=== PATIENT | male | born 1960 | race Caucasian/White ===

== ENCOUNTER 2017-12-25 02:44 | Emergency (ER) | payer OTHER ==
[~2017-12-25] VITALS: Ht 182.9 cm; Wt 95.2 kg
[~2017-12-25 02:44] MED LIST: AMLO5 PO; ASPI325 PO; AZAT50 PO; CEPH500 PO; CIPR250 PO; CLIN300 PO; CLOT10 SUSW; CLOT1TC TOP; CODACE30 PO; CYCL10 PO; DOCU100 PO; DOXY100 PO; ERYT.5TO LEFTEYE; FURO40 PO; GABA600 PO; HYDACE5 PO; HYDACE5325 PO; HYDCHL25 PO; HYDMOR2 PO; HYDSUL200 PO; IBUP800 PO; INDO25 PO; LEVSOD100 PO; LEVSOD150 PO; LISI5 PO; MESA400ER PO; METCAR500 PO; METTREX2.5 PO; NAPR500 PO; NAPR500ERA PO; NIFE30ER PO; OMEP10ER PO; ONDA4 PO; ONDA8 PO; OXYACE5T PO; OXYACE7.5T PO; OXYC10ER PO; OXYC5 PO; PANT40 PO; POTA10T PO; PRED10 PO; PRED20 PO; PROACE100 PO; Percocet 5-3251 EACH PO; RANI150 PO; RXCODACET PO; RXOXYACE PO; SENN187 PO; SULTRIDS PO; TAMS.4ER PO; TRAM50 PO; VANC250 PO
[2017-12-25] MEDS ORDERED: CEPH500 PO (03:07)
== END 2017-12-25 03:55 | disposition home or self-care (01) ==
LOC: ER 02:44
DX: S61.244A Puncture wound with foreign body of right ring finger without damage to nail, initial encounter (principal); W26.8XXA Contact with other sharp object(s), not elsewhere classified, initial encounter
CPT/HCPCS: 10120; 73140; 99283-25

== ENCOUNTER 2018-06-29 10:40 | Inpatient (IN) | payer OTHER ==
[~2018-06-29] VITALS: Ht 180.3 cm; Wt 96.6 kg
[2018-06-29 11:10] LABS: Calcium, Ionized (POC) 1.23 mmol/L (1.10-1.46); Chloride (POC) 108 mmol/L (98-108); Creatinine (POC) 1.3 mg/dL (0.8-1.3); Glucose (ISTAT POC) 164 mg/dL (70-99); Hemoglobin (POC) 7.8 g/dL (13.5-17.5); Potassium (POC) 3.9 mmol/L (3.5-5.5); Sodium (POC) 140 mmol/L (135-148); Total CO2 (POC) 19 mmol/L (21-32)
[2018-06-29 11:15] LABS: BASOPHILS ABSOLUTE AUTO 0.06 K/mm3 (0.00-0.23); BASOPHILS PERCENT AUTO 0 % (0-2); EOSINOPHILS ABSOLUTE AUTO 0.05 K/mm3 (0.00-0.68); EOSINOPHILS PERCENT AUTO 0 % (0-6); Hematocrit 28.1 % (37.0-53.0); Hemoglobin 9.6 g/dL (13.5-17.5); IMMATURE GRAN ABSOLUTE AUTO 0.24 K/mm3 (0.00-0.10); IMMATURE GRAN PERCENT AUTO 2 % (0-1); LYMPHOCYTES ABSOLUTE AUTO 3.13 K/mm3 (0.84-5.20); LYMPHOCYTES PERCENT AUTO 21 % (21-46); MONOCYTES ABSOLUTE AUTO 0.76 K/mm3 (0.16-1.47); MONOCYTES PERCENT AUTO 5 % (4-13); Mean Corpuscular HGB 32.5 pg (26.0-34.0); Mean Corpuscular HGB Conc 34.2 g/dL (31.5-36.5); Mean Corpuscular Volume 95 fL (80-100); Mean Platelet Volume 10.7 fL (9.1-12.4); NEUTROPHILS ABSOLUTE AUTO 10.56 K/mm3 (1.96-9.15); NEUTROPHILS PERCENT AUTO 72 % (41-73); Platelet Count 217 K/mm3 (150-400); RDW Coefficient Variation 11.8 % (11.7-14.2); RDW Standard Deviation 39.8 fL (35.1-46.3); Red Blood Cell Count 2.95 M/mm3 (4.30-5.90)
[2018-06-29 11:35] LABS: Alanine Aminotransfer (ALT/SGP 41 U/L (12-78); Albumin, Blood 2.7 g/dL (3.4-5.0); Alk Phos 69 U/L (50-136); Anion Gap 11 mmol/L (6-16); Aspartate Aminotrans (AST/SGOT 26 U/L (12-37); Bilirubin, Total 0.4 mg/dL (0.1-1.0); Blood Urea Nitrogen 69 mg/dL (8-24); Bun/Creatinine Ratio 53.1 (12.0-20.0); CO2, Blood 20 mmol/L (21-32); Calcium, Blood 8.1 mg/dL (8.5-10.1); Chloride, Blood 111 mmol/L (98-108); Globulin, Blood 2.6 g/dL (2.2-4.0); Glomerular Filtration Rate >60 (60-); Glucose, Blood 165 mg/dL (70-99); Sodium, Blood 142 mmol/L (136-145); Total Protein, Blood 5.3 g/dL (6.4-8.2)
[2018-06-29 12:10] LABS: International Normalized Ratio 1.19; Prothrombin Time Results 12.1 Sec (9.7-11.5)
[2018-06-29 12:54] LABS: Hematocrit 28.5 % (37.0-53.0); Hemoglobin 9.6 g/dL (13.5-17.5)
[2018-06-29 17:01] LABS: Influenza A Negative (NEGATIVE); Influenza B Negative (NEGATIVE)
--- NOTE | 2018-06-29 17:47 | NUR ---
PT ADMITTED TO ICU AT 1658 FOR GI BLEED. 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 PT PALE AND DIAPHORETIC, GOWN MOIST. PT WITH OLD BLACK STOOL TO LEGS AND BUTTOCKS; CLEANED. VSS. LOW GRADE TEMP. PT C/O LOWER ABD CRAMPING, AND TENDERNESS OVER EPIGASTRIUM. C/O NAUSEA/MILD. PT C/O ORAL PAIN, STATING HE IS SCHEDULED FOR DENTURES, THEN REQUEST VICODIN. WILL PASS ON TO MD. MOTTLING NOTED TO HIPS BILATERALLY; [employer] SALES REPRESENTATIVE STATES THAT THE MOTTLING IS MUCH IMPROVED. DR CALLOWAY IN TO SEE PT. OKAY TO HAVE CLEAR LIQUIDS(NO REDS) UP UNTIL MIDNIGHT WITH EGD PLANNED FOR TOMORROW AM.
[2018-06-29 18:21] LABS: Hematocrit 24.6 % (37.0-53.0); Hemoglobin 8.4 g/dL (13.5-17.5)
--- NOTE | 2018-06-29 19:15 | NUR ---
ASSUMED CARE OF PT PT ALERT AND ORIENTED ABLE TO APPROPRIATELY ANSWER QUESTIONS WHEN ASKED. PT DENIES PAIN AT THIS TIME. PROTONIX RUNNING AT 10 MLS/HR, SANDOSTATIN @ 25 ML/HR, BANANA BAG @ 200 MLS/HR, AND NS @ 100 MLS/HR. PT ABLE TO HELP COMPLETE ADMISSION HX BUT PER DAYSHIFT NURSE PT APPEARS TO BE A POOR HISTORIAN. VSS. SEE FULL SHIFT ASSESSMENT.
[2018-06-29 19:55] LABS: Source, Urine Catheter
[2018-06-29 20:02] LABS: Appearance, Urine Clear (Clear); Bilirubin, Urine Neg (Neg); Blood, Urine Neg (Neg); Color, Urine Yellow (P-Yellow); Glucose Qualitative, Urine Neg (Neg); Ketones, Urine Neg (Neg); Leukocyte Esterase, Urine Neg (Neg); Nitrite, Urine Neg (Neg); Protein, Urine Neg (Neg); Specific Gravity, Urine 1.015 (1.003-1.022); Urobilinogen, Urine NORM (Normal)
[2018-06-29 20:19] LABS: U Amphetamine Screen DETECTED; U Barbituate Screen Not Detected; U Benzodiazapine Screen Not Detected; U Buprenorphine Screen Not Detected; U Cannabinoids Screen Not Detected; U Cocaine Screen Not Detected; U Methadone Screen Not Detected; U Methamphetamine Screen DETECTED; U Opiates Screen Not Detected; U Oxycodone Screen Not Detected; U Phencyclidine Screen Not Detected; U Propoxyphene Screen Not Detected
[2018-06-30 01:21] LABS: Hematocrit 23.5 % (37.0-53.0); Hemoglobin 8.1 g/dL (13.5-17.5)
--- NOTE | 2018-06-30 04:00 | NUR ---
PT COMPLAINING OF 10/10 HIP PAIN. PT STATES THAT THIS IS CHRONIC PAIN USUALLY RELIEVED AT HOME WITH ALEVE. NURSE CLIFFORD REPOSITIONED AND CALL PLACED TO DR RIZZO, AWAITING CALL BACK.
--- NOTE | 2018-06-30 04:07 | NUR ---
SPOKE WITH DR RIZZO. FENTANYL 25-50 MCG Q4 PRN ORDERED
--- NOTE | 2018-06-30 06:03 | NUR ---
SHIFT SUMMARY NO ACUTE CHANGES TO PT'S CONDITION OVERNIGHT. PT DENIED PAIN UNTIL 0330 AND STATES THAT HIS PAIN IS 10/10 IN HIS HIPS BILATERALLY. PT STATES THIS IS A CHRONIC PAIN THAT HE USUALLY TREATS WITH IBUPROFEN. PT HAS DENIES EPIGASTRIC PAIN AND HAS HAD NO FURTHER BOWEL MOVEMENTS WITH OR WITHOUT BLOOD. PT HAS HAD NO NAUSEA/VOMITING THROUGHOUT SHIFT. PT'S SIGNIFICANT OTHER CONTINUES TO BE AT BEDSIDE. PT SCHEDULED FOR SCOPE THIS AM. WILL REPORT TO DAYSHIFT NURSE.
[2018-06-30 06:37] LABS: Hematocrit 21.9 % (37.0-53.0); Hemoglobin 7.6 g/dL (13.5-17.5)
[2018-06-30 06:38] LABS: BASOPHILS ABSOLUTE AUTO 0.02 K/mm3 (0.00-0.23); BASOPHILS PERCENT AUTO 0 % (0-2); EOSINOPHILS ABSOLUTE AUTO 0.13 K/mm3 (0.00-0.68); EOSINOPHILS PERCENT AUTO 1 % (0-6); Hematocrit 21.8 % (37.0-53.0); Hemoglobin 7.5 g/dL (13.5-17.5); IMMATURE GRAN ABSOLUTE AUTO 0.04 K/mm3 (0.00-0.10); IMMATURE GRAN PERCENT AUTO 0 % (0-1); LYMPHOCYTES ABSOLUTE AUTO 1.59 K/mm3 (0.84-5.20); LYMPHOCYTES PERCENT AUTO 15 % (21-46); MONOCYTES ABSOLUTE AUTO 0.47 K/mm3 (0.16-1.47); MONOCYTES PERCENT AUTO 5 % (4-13); Mean Corpuscular HGB 31.9 pg (26.0-34.0); Mean Corpuscular HGB Conc 34.4 g/dL (31.5-36.5); Mean Corpuscular Volume 93 fL (80-100); Mean Platelet Volume 10.4 fL (9.1-12.4); NEUTROPHILS ABSOLUTE AUTO 8.05 K/mm3 (1.96-9.15); NEUTROPHILS PERCENT AUTO 78 % (41-73); Platelet Count 165 K/mm3 (150-400); RDW Coefficient Variation 12.1 % (11.7-14.2); RDW Standard Deviation 40.1 fL (35.1-46.3); Red Blood Cell Count 2.35 M/mm3 (4.30-5.90)
[2018-06-30 07:11] LABS: Alanine Aminotransfer (ALT/SGP 36 U/L (12-78); Albumin, Blood 2.6 g/dL (3.4-5.0); Albumin/Globulin Ratio 1.1 (0.8-1.8); Alk Phos 67 U/L (50-136); Anion Gap 5 mmol/L (6-16); Aspartate Aminotrans (AST/SGOT 27 U/L (12-37); Bilirubin, Total 0.7 mg/dL (0.1-1.0); Blood Urea Nitrogen 36 mg/dL (8-24); Bun/Creatinine Ratio 31.9 (12.0-20.0); CO2, Blood 24 mmol/L (21-32); Calcium, Blood 7.9 mg/dL (8.5-10.1); Chloride, Blood 114 mmol/L (98-108); Creatinine, Blood 1.13 mg/dL (0.60-1.20); Globulin, Blood 2.3 g/dL (2.2-4.0); Glomerular Filtration Rate >60 (60-); Glucose, Blood 115 mg/dL (70-99); Potassium, Blood 4.4 mmol/L (3.5-5.5); Sodium, Blood 143 mmol/L (136-145); Total Protein, Blood 4.9 g/dL (6.4-8.2)
--- NOTE | 2018-06-30 08:07 | NUR ---
PT SLEEPING THIS AM, AROUSES TO TOUCH. PT MOANS AND GRIMACES IN SLEEP, C/O PAIN 10/10 TO PRIMARILY LEFT HIP. PT SLEPT THROUGH POWERGLIDE INSERTION. VSS. PROTONIX, SANDOSTATIN AND NS INFUSING. AFEBRILE THIS AM, POOR PERFUSION TO FEET, COOL WITH CAP REFIL>3SEC. MURMUR AT [facility] AND S2. NO ACTIVE GI BLEED NOTED. NO STOOLS.
--- NOTE | 2018-06-30 10:12 | NUR ---
06/30/18 1012 Carlito Rodriguez 3-LEAD EKG REVIEWED WITH PHYSICIAN PRIOR TO START OF PROCEDURE. History, Chart, Medications and Allergies reviewed before start of procedure.PATIENT CONFIRMS NPO STATUS AND AGREES WITH SCHEDULED PROCEDURE.History, Chart, Medications and Allergies reviewed before start of procedure.MONITOR INTACT WITH CONTINUOUS PULSE OXIMETRY AND INTERMITTENT BP.O2 VIA N/C INTACT THROUGHOUT SEDATION/PROCEDURE. Bite Block Placed
--- NOTE | 2018-06-30 10:43 | NUR ---
EGD COMPLETE. SEDATION PROVIED BY DR LAMB, SEE RECORD. STOMACH ULCER TREATED W EPI AND CAUTERY. NOT ACTIVELY BLEEDING. VSS. PT SLEEPING SOUNDLY, AROUSES TO TOUCH.
--- NOTE | 2018-06-30 11:30 | NUR ---
PT DR CALLOWAY PT MAY START CLEAR LIQUIDS TODAY, WILL STAY ON BOTH SANDOSTATIN AND PROTONIX GTT, AND MAY HAVE STATUS CHANGE IF OK W HOSPITALIST. PT CONTINUES TO SLEEP, VSS
[2018-06-30 12:33] LABS: Hematocrit 20.6 % (37.0-53.0)
--- NOTE | 2018-06-30 15:46 | NUR ---
DR CALLOWAY GIVEN H&H RESULTS, ONE UNIT PRBC'S ORDERED. DR MACIAS NOTIFIED, PT NOW PCU STATUS
--- NOTE | 2018-06-30 16:58 | NUR ---
DR MACIAS NOTIFIED OF S2 DYSTOLIC MURMUR. ECHO ORDERED
[2018-06-30 18:52] LABS: Hematocrit 22.5 % (37.0-53.0); Hemoglobin 7.7 g/dL (13.5-17.5)
--- NOTE | 2018-06-30 19:40 | NUR ---
PT SLEPT MOST OF THIS SHIFT. PT C/O PAIN TO HIS HIP ONCE IN THE AM (FALLING BACK TO A SOMULENT SLEEP), THEN ONCE IN THE AFTERNOON; FENT IV GIVEN. NO SYMPTOMS OF ACTIVE BLEEDING TODAY, NO ABD DISCOMFORT, NO STOOLS, VSS T/O SHIFT. PT STARTED TO BECOME ALERT AROUND 1600, TOLERATING CLEAR LIQUIDS VERY WELL, USING URINAL, AND USING CALL LIGHT APPROPRIATELY.
--- NOTE | 2018-06-30 20:38 | NUR ---
Sac of Care: Patient sleeping, easily roused via verbal stimuli. Denies dyspnea/SOB, O2-98-100% on RA. C/o pain to lt hip (states chronic) when woken for cares, otherwise quickly falls to sleep when not stimulated and appears to be calm/comfortable. Therefore, hesitant to give prn fentanyl at this time, will continue to monitor pain and give prn fentanyl if more awake, or request order for prn tylenol. No s/s of active bleed at this time, denies N/V, no stool noted, VSS. Protonix gtt, Sandostatin gtt, and NS at 100ml/hr infusing without difficulty. IV to lt EJ patent and intact, Power-glide to BRANDI patent and intact. IV to rt thumb D/C'd at start of shift, r/t not being patent and swelling to rt hand, no redness noted. Will continue to monitor for pain, comfort, safety.
[2018-06-30 23:06] LABS: Hematocrit 22.6 % (37.0-53.0); Hemoglobin 7.7 g/dL (13.5-17.5)
[2018-07-01 04:24] LABS: BASOPHILS ABSOLUTE AUTO 0.02 K/mm3 (0.00-0.23); BASOPHILS PERCENT AUTO 0 % (0-2); EOSINOPHILS ABSOLUTE AUTO 0.19 K/mm3 (0.00-0.68); EOSINOPHILS PERCENT AUTO 3 % (0-6); Hematocrit 23.7 % (37.0-53.0); Hematocrit 24.1 % (37.0-53.0); Hemoglobin 7.9 g/dL (13.5-17.5); Hemoglobin 8.1 g/dL (13.5-17.5); IMMATURE GRAN ABSOLUTE AUTO 0.04 K/mm3 (0.00-0.10); IMMATURE GRAN PERCENT AUTO 1 % (0-1); LYMPHOCYTES PERCENT AUTO 26 % (21-46); MONOCYTES PERCENT AUTO 8 % (4-13); Mean Corpuscular HGB 30.7 pg (26.0-34.0); Mean Corpuscular HGB Conc 33.3 g/dL (31.5-36.5); Mean Corpuscular Volume 92 fL (80-100); Mean Platelet Volume 10.4 fL (9.1-12.4); NEUTROPHILS ABSOLUTE AUTO 4.04 K/mm3 (1.96-9.15); NEUTROPHILS PERCENT AUTO 62 % (41-73); Platelet Count 156 K/mm3 (150-400); RDW Coefficient Variation 14.7 % (11.7-14.2); RDW Standard Deviation 48.8 fL (35.1-46.3); Red Blood Cell Count 2.57 M/mm3 (4.30-5.90); White Blood Cell Count 6.49 K/mm3 (4.00-11.30)
[2018-07-01 04:46] LABS: Anion Gap 5 mmol/L (6-16); Blood Urea Nitrogen 21 mg/dL (8-24); Bun/Creatinine Ratio 17.2 (12.0-20.0); CO2, Blood 27 mmol/L (21-32); Calcium, Blood 7.9 mg/dL (8.5-10.1); Chloride, Blood 112 mmol/L (98-108); Creatinine, Blood 1.22 mg/dL (0.60-1.20); Glomerular Filtration Rate >60 (60-); Glucose, Blood 100 mg/dL (70-99); Sodium, Blood 144 mmol/L (136-145)
--- NOTE | 2018-07-01 05:45 | NUR ---
Shift Summary: Patient slept well throughout shift, easily roused via verbal stimuli. Denies dyspnea/SOB, VSS. C/o lt hip pain 02/01 effectively managed with prn fentanyl 25mcg, x1 dose. No s/s of active bleeding, no N/V, or stool noted. Tolerating PO clear liquids without difficulty. Lt EJ and BRANDI Power-glide remain patent and intact. Voiding using urinal in bed without difficulty. Adjust own position in bed, makes needs known. Sleeping at this time. Will continue to monitor until report to day shift RN.
--- NOTE | 2018-07-01 07:56 | NUR ---
PT ASLEEP, AWAKENS EASILY TO NAME. NULATO. C/O CHRONIC HIP PAIN, REPOSITIONS SELF IN BED. NO N/V. STATES HUNGRY. NSR, BP STABLE. COLOR PALE, SKIN MOIST. IV NS AT 100 CC/HR, PROTONIX GTT AT 8MG/HR, SANDOSTATIN GTT AT 50 MCG/HR. LEFT EJ INTACT, LEFT UPPER ARM POWER GLIDE DI. ABDOMEN SOFT. VOIDING CLEAR YELLOW URINE. SCDS ON.
--- NOTE | 2018-07-01 09:19 | NUR ---
BEDSIDE ECHO DONE. AWAKENS EASILY, BACK TO SLEEP WITHOUT PROBLEMS. TOOK CLEAR LIQUIDS. NO S/S BLEEDING
[2018-07-01 10:11] LABS: Hematocrit 21.8 % (37.0-53.0); Hemoglobin 7.4 g/dL (13.5-17.5)
--- NOTE | 2018-07-01 10:25 | NUR ---
Echocardiogram completed.
--- NOTE | 2018-07-01 10:43 | NUR ---
DR. MACIAS HERE-UPDATED. ORDERS FOR MED STATUS, NO TELEMETRY. ORDERS TO D/C SANDOSTATIN. PT C.O HIP PAIN, RX GIVEN PER REQUEST. AM CARE DONE, WAS ABLE TO STAND AT BEDSIDE FOR LINEN CHANGE
--- NOTE | 2018-07-01 13:30 | NUR ---
DR. CALLOWAY HERE-UPDATED. AWARE OF LABS. CONTINUE TO MONITOR, MEDICAL STATUS. PT DENIES COMPLAINTS EXCEPT C/O CHRONIC HIP PAIN, SLEEPING WHEN UNDISTURBED.
--- NOTE | 2018-07-01 14:54 | NUR ---
REPORT TO PORFIRIO NOBLE ON MEDICAL. PT TRANSFERRED IN WHEELCHAIR WITHOUT PROBLEMS. VSS. NO S/S BLEEDING. ATE PUDDING AND HALF SANDWICH. NO NAUSEA. VOIDING. CONTINUE PROTONIX AND BANANA BAG.
[2018-07-01 16:35] LABS: Hematocrit 22.1 % (37.0-53.0); Hemoglobin 7.4 g/dL (13.5-17.5)
--- NOTE | 2018-07-01 17:29 | NUR ---
PATIENT ALERT AND ORIENTED. BLD DRAW THRU POWERGLIDE WITH CAP CHANGED. H&H NO CHANGES WILL CONTINUE TO MONITOR. NO N/V. NO BLD IN STOOL. UNLABORED RESPIRATIONS. USES URINAL IN BED WITHOUT DIFFICULTY. TOLERATED REG DIET PRIOR TO TRANSFER TO THIS FLOOR. ABLE TO ADJUST BED ON HIS OWN. MEDICATED FOR HIP/BACK PAIN X 1 WITH GOOD RESULTS. BED IN LOW POSITION. CALL LIGHT WITHIN REACH. WILL CONTINUE TO MONITOR.
[2018-07-01 23:22] LABS: Hematocrit 20.9 % (37.0-53.0); Hemoglobin 7.1 g/dL (13.5-17.5)
--- NOTE | 2018-07-02 07:26 | NUR ---
SHIFT SUMMARY PT A/O. CHELE HAS NOT GOT OOB. USING URINAL IN BED. C/O PAIN IN BACK/HIPS AND MEDICATED PER EMAR X2. NO STOOL SAMPLE. HE WAS SLEEPY AND SLEPT T/O NIGHT. CALL LIGHT IN REACH.
--- NOTE | 2018-07-02 08:01 | NUR ---
UNABLE TO DRAW FROM EITHER IV SITE
--- NOTE | 2018-07-02 09:15 | NUR ---
per dr. subha rawls hold bld transfusion and redraw h&h at noon. keep clear liquids as may do scope again.
[2018-07-02 09:17] LABS: Hematocrit 23.2 % (37.0-53.0); Hemoglobin 7.9 g/dL (13.5-17.5)
[2018-07-02 12:08] LABS: Hematocrit 22.8 % (37.0-53.0); Hemoglobin 7.8 g/dL (13.5-17.5)
--- NOTE | 2018-07-02 14:40 | NUR ---
PER DR. CALLOWAY NO TRANSFUSION AT THIS TIME. REG DINNER. PROTONIX TO P.O. BID.
--- NOTE | 2018-07-02 19:10 | NUR ---
ALERT AND ORIENTED. SHOWER TODAY. IF H&H STABLE POSSIBLE D'C TOMORROW. IV'S PATENT. BUE SWOLLEN. TOLERATING FOOD OK. UNLABORED RESPIRATIONS. NO B.M TODAY. NO N/V. BED IN LOW POSITION. CALL LIGHT WITHIN REACH. WILL CONTINUE TO MONITOR.
--- NOTE | 2018-07-03 00:12 | NUR ---
0012: PT AND SPOUSE REPORT PT HAS MEDIUM BLACK TARRY STOOL WITH BRP. PT REPORTS MILD DIZZINESS WHILE UP IN ROOM THAT RESOLVES WHEN REPOSITIONS SELF BACK IN BED. VSS, DENIES SOB. PT AND SPOUSE EDUCATED ABOUT BLOODY STOOLS IN R/T GI BLEED AND FURTHER S/S TO WATCH FOR. PT VERBALIZES UNDERSTANDING OF WHEN TO NOTIFY RN SHOULD SYMPTOMS OCCUR AND SPOUSE LEAVES FACILITY FOR NOC.
--- NOTE | 2018-07-03 05:09 | NUR ---
SUMMARY: ADMIT DAY 5 GI BLEED, ANEMIA ON HOSPITALIST SERVICE WITH DR. Caron CALLOWAY CONSULTING. VSS, AFEBRILE, PT TOLERATING REGULAR DIET AND HAD MEDIUM BLACK TARLIKE BM THIS SHIFT. DENIES REFLUX, HEARTBURN, N/V, SOB, CHEST PAIN. PT HAD SHORT EPISDOE OF DIZZINESS AFTER BRP AND TARRY BM THAT RESOLVED WITHIN MINUTES; VSS DURING THIS TIME.
[2018-07-03 06:08] LABS: Hematocrit 23.7 % (37.0-53.0); Hemoglobin 7.9 g/dL (13.5-17.5)
[2018-07-03] MEDS ORDERED: Protonix40 MG PO (11:13)
--- NOTE | 2018-07-03 16:09 | NUR ---
PT DISCHARGED THE PT VERBALIZED UNDERSTANDING OF THE DC INSTRUCTIONS, PERSCRIPTION WAS CALLED TO [facility] PER THE PTS REQUEST, PT TOOK A SHOWER BEFORE DC AND TOLERATED IT WELL, THE PT WAS TRANSFERED VIA WHEELCHAIR ACCOMPANIED BY ESCORT AND FRIEND, PT APPEARED TO BE BREATHING EASILY ON RA
[2018-07-10 21:07] LABS: HCV LOG10 6.751 (.); HEPATITIS C GENOTYPE 1a (.); HEPATITIS C GENOTYPE See Final Results (.); HEPATITIS C QUANTITATION 5640000 IU/mL (.)
== END 2018-07-03 14:11 | disposition home or self-care (01) | DRG 871 ==
LOC: ER 10:40 → ERHOLD 10:41 → ICUE 10:41 → MEDS 07-01 14:30 → ENPENDDIS 07-03 11:04 → MEDS 07-03 14:11
PROVIDERS: Emergency Medicine; Internal Medicine; Internal Medicine Gastroenterology; ADMIT Internal Medicine
PROC: 30233N1 Transfusion of Nonautologous Red Blood Cells into Peripheral Vein, Percutaneous Approach (ICD-10-PCS; 2018-06-30)
PROC: 0W3P8ZZ Control Bleeding in Gastrointestinal Tract, Via Natural or Artificial Opening Endoscopic (ICD-10-PCS; principal; 2018-06-30 09:45)
PROC: 3E0G8GC Introduction of Other Therapeutic Substance into Upper GI, Via Natural or Artificial Opening Endoscopic (ICD-10-PCS; 2018-06-30 09:45)
DX: A41.9 Sepsis, unspecified organism (principal); K22.11 Ulcer of esophagus with bleeding; D62 Acute posthemorrhagic anemia; K50.90 Crohn's disease, unspecified, without complications; N17.9 Acute kidney failure, unspecified; K74.60 Unspecified cirrhosis of liver; B19.20 Unspecified viral hepatitis C without hepatic coma; F19.10 Other psychoactive substance abuse, uncomplicated; F17.210 Nicotine dependence, cigarettes, uncomplicated; I12.9 Hypertensive chronic kidney disease with stage 1 through stage 4 chronic kidney disease, or unspecified chronic kidney disease; N18.3 Chronic kidney disease, stage 3 (moderate); T39.395A Adverse effect of other nonsteroidal anti-inflammatory drugs [NSAID], initial encounter; F10.20 Alcohol dependence, uncomplicated
CPT/HCPCS: 36415; 36430; 71046; 74150; 80047; 80048; 80053; 81003; 82140; 83605; 84145; 85014; 85018; 85025; 85610; 86140; 86850; 86900; 86901; 86920; 86923; 87040; 87522; 87804; 90686; 93005; 93010; 93306; 96365; 96366; 96367; 96368; 96375; 96376; 99285-25; C1751; C9113; G0008; G0378; J2060; J2405; J2765; J3010; J3411; J3475; J7030; J7042; J7050; J7120; P9016

== ENCOUNTER 2018-07-10 05:38 | Emergency (ER) | payer OTHER ==
[~2018-07-10 05:38] MED LIST changes: +Protonix40 MG PO
== END 2018-07-10 06:20 | disposition left against medical advice (07) ==
LOC: ER 05:38
DX: Z53.21 Procedure and treatment not carried out due to patient leaving prior to being seen by health care provider (principal)

== ENCOUNTER 2018-11-10 08:57 | Emergency (ER) | payer OTHER ==
[~2018-11-10] VITALS: Ht 182.9 cm; Wt 99.8 kg
[2018-11-10] MEDS ORDERED: GABA300 (09:07)
[2018-11-10] MEDS ORDERED: LISI5 (09:07)
[2018-11-10] MEDS ORDERED: OMEPRAZOLE DR 40 MG (09:08)
== END 2018-11-10 10:53 | disposition home or self-care (01) ==
LOC: ER 08:57
DX: H61.21 Impacted cerumen, right ear (principal); F17.200 Nicotine dependence, unspecified, uncomplicated; Z79.899 Other long term (current) drug therapy
CPT/HCPCS: 99282

== ENCOUNTER 2020-04-22 18:19 | Emergency (ER) | payer OTHER ==
[~2020-04-22] VITALS: Ht 182.9 cm; Wt 95.2 kg
[~2020-04-22 18:19] MED LIST changes: +GABA300; +LISI5; +OMEPRAZOLE DR 40 MG
[2020-04-22 19:57] LABS: BASOPHILS ABSOLUTE AUTO 0.04 K/mm3 (0.00-0.23); BASOPHILS PERCENT AUTO 0 % (0-2); EOSINOPHILS ABSOLUTE AUTO 0.11 K/mm3 (0.00-0.68); EOSINOPHILS PERCENT AUTO 1 % (0-6); Hematocrit 38.3 % (37.0-53.0); Hemoglobin 12.3 g/dL (13.5-17.5); IMMATURE GRAN ABSOLUTE AUTO 0.04 K/mm3 (0.00-0.10); IMMATURE GRAN PERCENT AUTO 0 % (0-1); LYMPHOCYTES ABSOLUTE AUTO 2.67 K/mm3 (0.84-5.20); LYMPHOCYTES PERCENT AUTO 20 % (21-46); MONOCYTES ABSOLUTE AUTO 1.39 K/mm3 (0.16-1.47); MONOCYTES PERCENT AUTO 11 % (4-13); Mean Corpuscular HGB 28.9 pg (26.0-34.0); Mean Corpuscular HGB Conc 32.1 g/dL (31.5-36.5); Mean Corpuscular Volume 90 fL (80-100); Mean Platelet Volume 9.7 fL (9.1-12.4); NEUTROPHILS ABSOLUTE AUTO 9.01 K/mm3 (1.96-9.15); NEUTROPHILS PERCENT AUTO 68 % (41-73); Platelet Count 288 K/mm3 (150-400); RDW Coefficient Variation 13.1 % (11.7-14.2); RDW Standard Deviation 42.9 fL (35.1-46.3); Red Blood Cell Count 4.25 M/mm3 (4.30-5.90); White Blood Cell Count 13.26 K/mm3 (4.00-11.30)
[2020-04-22 20:15] LABS: Albumin, Blood 3.6 g/dL (3.4-5.0); Bilirubin, Total 0.5 mg/dL (0.1-1.0); Bun/Creatinine Ratio 13.1 (12.0-20.0); Calcium, Blood 10.6 mg/dL (8.5-10.1); Creatinine, Blood 3.75 mg/dL (0.60-1.20); Globulin, Blood 3.7 g/dL (2.2-4.0); Potassium, Blood 4.1 mmol/L (3.5-5.5); Total Protein, Blood 7.3 g/dL (6.4-8.2)
[2020-04-22] MEDS ORDERED: PRINIVIL10 MG PO (22:57)
[2020-04-22] MEDS ORDERED: Omeprazole20 M1 PO (22:57)
[2020-04-22] MEDS ORDERED: NEURONTIN300 MG PO (22:57)
[2020-04-23 00:15] LABS: International Normalized Ratio 1.03
[2020-04-23 00:50] LABS: Calcium, Ionized (POC) 1.29 mmol/L (1.10-1.46); Chloride (POC) 103 mmol/L (98-108); Creatinine (POC) 3.8 mg/dL (0.8-1.3); Glucose (ISTAT POC) 105 mg/dL (70-99); Hemoglobin (POC) 11.2 g/dL (13.5-17.5); Potassium (POC) 3.9 mmol/L (3.5-5.5); Sodium (POC) 138 mmol/L (135-148); Total CO2 (POC) 23 mmol/L (21-32)
== END 2020-04-23 01:25 | disposition other institution (70) ==
LOC: ER 18:19
PROVIDERS: Emergency Medicine
DX: K92.2 Gastrointestinal hemorrhage, unspecified (principal); N18.9 Chronic kidney disease, unspecified; N17.9 Acute kidney failure, unspecified; F17.200 Nicotine dependence, unspecified, uncomplicated; Z79.899 Other long term (current) drug therapy
CPT/HCPCS: 36415; 80047; 80053; 83690; 85014; 85025; 85610; 96374; 99284-25; C9113; J7030

== ENCOUNTER 2020-09-17 10:13 | Emergency (ER) | payer OTHER ==
[~2020-09-17] VITALS: Ht 182.9 cm; Wt 104.3 kg
[~2020-09-17 10:13] MED LIST changes: +NEURONTIN300 MG PO; +Omeprazole20 M1 PO; +PRINIVIL10 MG PO
[2020-09-17 10:55] LABS: BASOPHILS ABSOLUTE AUTO 0.04 K/mm3 (0.00-0.23); BASOPHILS PERCENT AUTO 1 % (0-2); EOSINOPHILS ABSOLUTE AUTO 0.14 K/mm3 (0.00-0.68); EOSINOPHILS PERCENT AUTO 2 % (0-6); Hematocrit 40.3 % (37.0-53.0); IMMATURE GRAN ABSOLUTE AUTO 0.02 K/mm3 (0.00-0.10); IMMATURE GRAN PERCENT AUTO 0 % (0-1); LYMPHOCYTES ABSOLUTE AUTO 1.43 K/mm3 (0.84-5.20); LYMPHOCYTES PERCENT AUTO 16 % (21-46); MONOCYTES ABSOLUTE AUTO 0.77 K/mm3 (0.16-1.47); MONOCYTES PERCENT AUTO 9 % (4-13); Mean Corpuscular HGB 26.3 pg (26.0-34.0); Mean Corpuscular HGB Conc 32.3 g/dL (31.5-36.5); Mean Corpuscular Volume 82 fL (80-100); Mean Platelet Volume 9.6 fL (9.1-12.4); NEUTROPHILS ABSOLUTE AUTO 6.37 K/mm3 (1.96-9.15); NEUTROPHILS PERCENT AUTO 73 % (41-73); Platelet Count 256 K/mm3 (150-400); RDW Coefficient Variation 15.4 % (11.7-14.2); RDW Standard Deviation 45.2 fL (35.1-46.3); Red Blood Cell Count 4.94 M/mm3 (4.30-5.90); White Blood Cell Count 8.77 K/mm3 (4.00-11.30)
[2020-09-17] MEDS ORDERED: PANT40 PO (11:04)
[2020-09-17 11:15] LABS: Alanine Aminotransfer (ALT/SGP 34 U/L (12-78); Albumin, Blood 3.5 g/dL (3.4-5.0); Albumin/Globulin Ratio 0.8 (0.8-1.8); Alk Phos 209 U/L (50-136); Anion Gap 4 mmol/L (6-16); Aspartate Aminotrans (AST/SGOT 20 U/L (12-37); Bilirubin, Total 0.4 mg/dL (0.1-1.0); Blood Urea Nitrogen 18 mg/dL (8-24); Bun/Creatinine Ratio 12.2 (12.0-20.0); CO2, Blood 29 mmol/L (21-32); Calcium, Blood 10.3 mg/dL (8.5-10.1); Chloride, Blood 105 mmol/L (98-108); Creatinine, Blood 1.47 mg/dL (0.60-1.20); Globulin, Blood 4.4 g/dL (2.2-4.0); Glomerular Filtration Rate 52 (60-); Glucose, Blood 91 mg/dL (70-99); Potassium, Blood 4.2 mmol/L (3.5-5.5); Sodium, Blood 138 mmol/L (136-145); Total Protein, Blood 7.9 g/dL (6.4-8.2); Troponin I <0.015 ng/mL (0.000-0.040)
[2020-09-17] MEDS ORDERED: MIRALAX17 G6 PO (12:16)
[2020-09-17] MEDS ORDERED: ONDA4ODT MM (12:16)
== END 2020-09-17 12:30 | disposition home or self-care (01) ==
LOC: ER 10:13
PROVIDERS: Emergency Medicine
DX: K59.00 Constipation, unspecified (principal); R06.00 Dyspnea, unspecified; Z79.899 Other long term (current) drug therapy
CPT/HCPCS: 36415; 71045; 74018; 80053; 84484; 85025; 93005; 93010; 96374; 99285-25; A9270; J2405

== ENCOUNTER 2020-09-21 09:17 | Emergency (ER) | payer OTHER ==
[~2020-09-21] VITALS: Ht 182.9 cm; Wt 102.1 kg
[~2020-09-21 09:17] MED LIST changes: +MIRALAX17 G6 PO; +ONDA4ODT MM
[2020-09-21 10:18] LABS: BASOPHILS ABSOLUTE AUTO 0.03 K/mm3 (0.00-0.23); BASOPHILS PERCENT AUTO 0 % (0-2); EOSINOPHILS ABSOLUTE AUTO 0.18 K/mm3 (0.00-0.68); EOSINOPHILS PERCENT AUTO 2 % (0-6); Hematocrit 38.2 % (37.0-53.0); Hemoglobin 12.5 g/dL (13.5-17.5); IMMATURE GRAN ABSOLUTE AUTO 0.03 K/mm3 (0.00-0.10); IMMATURE GRAN PERCENT AUTO 0 % (0-1); LYMPHOCYTES ABSOLUTE AUTO 1.39 K/mm3 (0.84-5.20); LYMPHOCYTES PERCENT AUTO 14 % (21-46); MONOCYTES ABSOLUTE AUTO 0.65 K/mm3 (0.16-1.47); MONOCYTES PERCENT AUTO 7 % (4-13); Mean Corpuscular HGB 26.6 pg (26.0-34.0); Mean Corpuscular HGB Conc 32.7 g/dL (31.5-36.5); Mean Corpuscular Volume 81 fL (80-100); Mean Platelet Volume 9.5 fL (9.1-12.4); NEUTROPHILS ABSOLUTE AUTO 7.38 K/mm3 (1.96-9.15); NEUTROPHILS PERCENT AUTO 76 % (41-73); Platelet Count 262 K/mm3 (150-400); RDW Coefficient Variation 15.1 % (11.7-14.2); RDW Standard Deviation 44.6 fL (35.1-46.3); White Blood Cell Count 9.66 K/mm3 (4.00-11.30)
[2020-09-21 10:37] LABS: Albumin, Blood 3.1 g/dL (3.4-5.0); Albumin/Globulin Ratio 0.7 (0.8-1.8); Bilirubin, Total 0.5 mg/dL (0.1-1.0); Bun/Creatinine Ratio 11.1 (12.0-20.0); Calcium, Blood 9.9 mg/dL (8.5-10.1); Creatinine, Blood 1.98 mg/dL (0.60-1.20); Globulin, Blood 4.2 g/dL (2.2-4.0); Potassium, Blood 4.3 mmol/L (3.5-5.5); Total Protein, Blood 7.3 g/dL (6.4-8.2)
[2020-09-21] MEDS ORDERED: CIPR500 PO (11:29)
== END 2020-09-21 14:57 | disposition home or self-care (01) ==
LOC: ER 09:17
PROVIDERS: Emergency Medicine
DX: K52.9 Noninfective gastroenteritis and colitis, unspecified (principal); E86.0 Dehydration; N28.9 Disorder of kidney and ureter, unspecified; Z79.899 Other long term (current) drug therapy
CPT/HCPCS: 36415; 74177; 80053; 83690; 85025; 96360; 96361; 99284-25; J7030; Q9967

== ENCOUNTER 2021-01-04 23:29 | Emergency (ER) | payer OTHER ==
[~2021-01-04] VITALS: Ht 182.9 cm; Wt 102.1 kg
[~2021-01-04 23:29] MED LIST changes: +CIPR500 PO
== END 2021-01-05 00:50 | disposition home or self-care (01) ==
LOC: ER 23:29
DX: S16.1XXA Strain of muscle, fascia and tendon at neck level, initial encounter (principal); I10 Essential (primary) hypertension; F17.210 Nicotine dependence, cigarettes, uncomplicated; Z79.899 Other long term (current) drug therapy; V49.50XA Passenger injured in collision with unspecified motor vehicles in traffic accident, initial encounter; Y92.410 Unspecified street and highway as the place of occurrence of the external cause
CPT/HCPCS: 70450; 72125; 99284-25

== ENCOUNTER → 2021-01-18 | Outpatient (CLI) | payer OTHER | END | disposition home or self-care (01) | LOC: LAB SHORT 17:47 | DX: R79.89 Other specified abnormal findings of blood chemistry (principal) | CPT/HCPCS: 84484 ==

== ENCOUNTER 2021-02-02 19:56 | Emergency (ER) | payer OTHER ==
[~2021-02-02] VITALS: Ht 182.9 cm; Wt 99.8 kg
[2021-02-03] MEDS ORDERED: PANT40 (04:09)
[2021-02-03] MEDS ORDERED: NAPROXEN250 M1 PO (07:18)
== END 2021-02-03 02:00 | disposition left against medical advice (07) ==
LOC: ER 19:56
DX: M25.552 Pain in left hip (principal); Z79.899 Other long term (current) drug therapy; Z53.20 Procedure and treatment not carried out because of patient's decision for unspecified reasons
CPT/HCPCS: 73502; 99283-25

== ENCOUNTER 2021-02-03 03:10 | Emergency (ER) | payer OTHER ==
[~2021-02-03] VITALS: Ht 182.9 cm; Wt 99.8 kg
[2021-02-03] MEDS ORDERED: PANT40 (04:09)
[2021-02-03] MEDS ORDERED: NAPROXEN250 M1 PO (07:18)
== END 2021-02-03 08:17 | disposition home or self-care (01) ==
LOC: ER 03:10
DX: M25.552 Pain in left hip (principal); G89.29 Other chronic pain; I10 Essential (primary) hypertension; F17.200 Nicotine dependence, unspecified, uncomplicated; Z59.0 Homelessness
CPT/HCPCS: 99283; A9270

== ENCOUNTER 2022-01-25 16:44 | Emergency (ER) | payer OTHER ==
[~2022-01-25] VITALS: Ht 182.9 cm; Wt 99.8 kg
[~2022-01-25 16:44] MED LIST changes: +NAPROXEN250 M1 PO; +PANT40
[2022-01-25] MEDS ORDERED: NARCAN4 M1 (18:42)
== END 2022-01-25 19:10 | disposition home or self-care (01) ==
LOC: ER 16:44
DX: T40.411A Poisoning by fentanyl or fentanyl analogs, accidental (unintentional), initial encounter (principal); R07.9 Chest pain, unspecified; I10 Essential (primary) hypertension; F17.210 Nicotine dependence, cigarettes, uncomplicated; Z79.899 Other long term (current) drug therapy
CPT/HCPCS: 93005; 93010; 99284-25

== ENCOUNTER 2022-07-25 17:45 | Inpatient (IN) | payer OTHER ==
[~2022-07-25] VITALS: Ht 182.9 cm; Wt 76.7 kg
[~2022-07-25 17:45] MED LIST changes: +NARCAN4 M1
[2022-07-25 18:43] LABS: Hematocrit 44.5 % (37.0-53.0); Hemoglobin 14.7 g/dL (13.5-17.5); Mean Corpuscular HGB 27.8 pg (26.0-34.0); Mean Corpuscular Volume 84 fL (80-100); Mean Platelet Volume 11.1 fL (9.1-12.4); Platelet Count 213 K/mm3 (150-400); RDW Coefficient Variation 14.1 % (11.7-14.2); RDW Standard Deviation 43.3 fL (35.1-46.3); Red Blood Cell Count 5.29 M/mm3 (4.30-5.90); White Blood Cell Count 32.08 K/mm3 (4.00-11.30)
[2022-07-25 19:09] LABS: BAND PERCENT MAN 35 % (0-8); BASOPHILS PERCENT MAN 0 % (0-2); EOSINOPHILS PERCENT MAN 0 % (0-6); LYMPHOCYTES ABSOLUTE MAN 0.32 K/mm3 (0.84-5.20); LYMPHOCYTES PERCENT MAN 1 % (21-46); METAMYELOCYTE PERCENT MAN 5 % (0-0); MONOCYTES ABSOLUTE MAN 0.64 K/mm3 (0.16-1.47); MONOCYTES PERCENT MAN 2 % (4-13); NEUTROPHILS ABSOLUTE MAN 29.51 K/mm3 (1.96-9.15); SEG NEUTROPHILS PERCENT MAN 57 % (41-73); TOTAL CELLS COUNTED 100
[2022-07-25 19:10] LABS: Albumin, Blood 3.6 g/dL (3.4-5.0); Albumin/Globulin Ratio 0.9 (0.8-1.8); Bilirubin, Total 2.2 mg/dL (0.1-1.0); Bun/Creatinine Ratio 15.2 (12.0-20.0); Calcium, Blood 11.4 mg/dL (8.5-10.1); Creatinine, Blood 3.35 mg/dL (0.60-1.20); Globulin, Blood 4.1 g/dL (2.2-4.0); Potassium, Blood 6.5 mmol/L (3.5-5.5); Total Protein, Blood 7.7 g/dL (6.4-8.2)
[2022-07-25 20:42] LABS: Base Excess Venous -9.8 mmol/L; Bicarbonate Venous 17.8 mmol/L (24.0-30.0); PCO2 Venous 29.9 mmHg (38-42); PO2 Venous 196 mmHg (38-42); pH Blood Venous 7.34 (7.34-7.37)
[2022-07-25 20:46] LABS: Glucose, Blood 232 mg/dL (70-99)
[2022-07-25 22:33] LABS: Source, Urine Foley catheter
[2022-07-25 22:41] LABS: Bilirubin, Urine Neg (Neg); Blood, Urine 3+ (Neg); Glucose Qualitative, Urine Neg (Neg); Ketones, Urine Neg (Neg); Leukocyte Esterase, Urine 1+ (Neg); Nitrite, Urine Neg (Neg); Protein, Urine 2+ (Neg); Specific Gravity, Urine 1.015 (1.003-1.022); Urobilinogen, Urine 1+ (Normal)
[2022-07-25 22:56] LABS: Appearance, Urine Hazy (Clear); Color, Urine Yellow (P-Yellow)
[2022-07-25 22:59] LABS: Amorphous Light (0-Heavy); Bacteria Few /hpf; Mucus Light (0-Heavy); Red Blood Cells, Urine 0-2 /hpf (0-2); Squamous Epithelial Cells Rare /hpf (Few); White Blood Cells, Urine 0-2 /hpf (0-5)
--- NOTE | 2022-07-26 02:36 | NUR ---
ADMISSION: PT ARRIVED TO PCU 02 AT 0050, SLID OVER FROM [facility] BED WITH ASSIST OF 4 STAFF MEMBERS. PT LETHARGIC, RESPONDS TO VERBAL STIMULI. ORIENTED TO PERSON, PLACE, AND SURROUNDINGS, QUICKLY FALLS BACK ASLEEP. UNABLE TO GAIN HEALTH HISTORY. STRENGTH WEAK, EQUAL BILATERALLY. BP STABLE, HR SR 90'S, AFEBRILE, SATS >98% ON ROOM AIR. RESPIRATIONS EVEN AND UNLABORED. GARG CATH PLACED IN ED, DRAINING [place] URINE TO GRAVITY. MINIMAL URINE OUTPUT NOTED. NG TUBE IN PLACE, CONNECTED TO LOW INTERMITTENT SUCTION. CURRENTLY NPO FOR POSSIBLE PROCEDURE IN AM. +1 EDEMA NOTED IN BLE. POWERGLIDE PLACED IN BAY, DRAWS AND FLUSHES. PT COMPLAINED OF GENERALIZED PAIN, MEDICATED PER EMAR. ATTNEDS IN PLACE, REPOS Q2 TO MAINTAIN SKIN INTEGRITY, CALL LIGHT IN REACH, ALARM ON, WILL CONTINUE TO MONITOR.
[2022-07-26 02:55] LABS: Bun/Creatinine Ratio 15.8 (12.0-20.0); Calcium, Blood 10.8 mg/dL (8.5-10.1); Creatinine, Blood 3.67 mg/dL (0.60-1.20); Potassium, Blood 5.3 mmol/L (3.5-5.5)
[2022-07-26 03:43] LABS: Hematocrit 36.6 % (37.0-53.0); Hemoglobin 11.9 g/dL (13.5-17.5); Mean Corpuscular HGB 27.4 pg (26.0-34.0); Mean Corpuscular HGB Conc 32.5 g/dL (31.5-36.5); Mean Corpuscular Volume 84 fL (80-100); Mean Platelet Volume 11.3 fL (9.1-12.4); Platelet Count 170 K/mm3 (150-400); RDW Coefficient Variation 14.4 % (11.7-14.2); RDW Standard Deviation 43.9 fL (35.1-46.3); Red Blood Cell Count 4.34 M/mm3 (4.30-5.90); White Blood Cell Count 17.08 K/mm3 (4.00-11.30)
[2022-07-26 04:07] LABS: Bun/Creatinine Ratio 16.5 (12.0-20.0); Calcium, Blood 10.3 mg/dL (8.5-10.1); Creatinine, Blood 3.63 mg/dL (0.60-1.20); Magnesium, Blood 2.3 mg/dL (1.6-2.4); Potassium, Blood 5.9 mmol/L (3.5-5.5)
--- NOTE | 2022-07-26 04:37 | NUR ---
SHIFT SUMMARY: NO ACUTE CHANGES SINCE ADMISSION. NG REMAINS TO SUCTION, GREEN/YELLOW OUTPUT. NS GTT IN BAY @150ML/HR. PT REMAINS LETHARGIC, RESPONDS TO VERBAL STIMULI. BP AND HR STABLE, AFEBRILE, SATS >98% ON ROOM AIR. PT CONTINUES TO BE NPO FOR PROCEDURE IN AM. BED IN LOW, ALARM ON, CALL LIGHT IN [facility], WILL REPORT TO ONCOMING RN.
[2022-07-26 05:22] LABS: BAND PERCENT MAN 25 % (0-8); BASOPHILS PERCENT MAN 0 % (0-2); EOSINOPHILS PERCENT MAN 0 % (0-6); LYMPHOCYTES % ATYPICAL MANUAL 1 % (0-0); LYMPHOCYTES ABSOLUTE MAN 0.68 K/mm3 (0.84-5.20); LYMPHOCYTES PERCENT MAN 3 % (21-46); METAMYELOCYTE ABSOLUTE MAN 1.02 K/mm3 (0.00-0.00); METAMYELOCYTE PERCENT MAN 6 % (0-0); MONOCYTES ABSOLUTE MAN 1.53 K/mm3 (0.16-1.47); MONOCYTES PERCENT MAN 9 % (4-13); NEUTROPHILS ABSOLUTE MAN 13.83 K/mm3 (1.96-9.15); SEG NEUTROPHILS PERCENT MAN 56 % (41-73); TOTAL CELLS COUNTED 100
--- NOTE | 2022-07-26 07:45 | NUR ---
Dr. Osborne removed the NGT as it was not patent. Pt vomited dark brown opaque emesis. Need to replace NGT with 18 english. NO plan for surgery nor procedure today, per surgeon.
--- NOTE | 2022-07-26 08:53 | NUR ---
Pt had a medium liquid brown stool on the bedside commode, with few very small solid particles. Resting in bed, HOB elevated, NGT to LIS with dark brown liquid evacuated.
--- NOTE | 2022-07-26 10:23 | NUR ---
Medicated earlier for c/o nausea. Pt is now resting in bed, HOB elevated, eyes closed, respirations even and unlabored, room lights dimmed. NGT continues to Low intermittent suction.
--- NOTE | 2022-07-26 11:02 | NUR ---
Dr. Spenecr here rounding on the patient at this time.
--- NOTE | 2022-07-26 11:06 | NUR ---
NGT suction changed from low intermittent to continuous low wall suction per Dr. Osborne.
--- NOTE | 2022-07-26 12:00 | NUR ---
Pt states relief from pain since receiving IV antibiotic this morning. Adminstered neurontin as ordered. He is presently sitting up in bed, eating his lunch. Clean urinal provided for the collection of urine for lab.
[2022-07-26 13:04] LABS: Albumin, Blood 2.4 g/dL (3.4-5.0); Anion Gap 11 mmol/L (6-16); Blood Urea Nitrogen 71 mg/dL (8-24); Bun/Creatinine Ratio 17.3 (12.0-20.0); CO2, Blood 18 mmol/L (21-32); Calcium, Blood 10.5 mg/dL (8.5-10.1); Chloride, Blood 114 mmol/L (98-108); Glomerular Filtration Rate 16 (60-); Glucose, Blood 90 mg/dL (70-99); Phosphorus, Blood 3.6 mg/dL (2.5-4.9); Potassium, Blood 6.5 mmol/L (3.5-5.5); Sodium, Blood 143 mmol/L (136-145)
[2022-07-26 13:51] LABS: pH Blood Arterial 7.38 (7.35-7.45)
--- NOTE | 2022-07-26 13:54 | NUR ---
Pt was awakened for repositioning, checking for stool incontinence, vital signs. He was repositioned to the right side. Complains of belly pain when HOB is brought down and when he is rolled over. No bowel incontinence. Dr. Bush was here, saw the patient briefly. ABG drawn, and lactic arterial ordered.
[2022-07-26 14:10] LABS: U Amphetamine Screen DETECTED; U Barbituate Screen Not Detected; U Benzodiazapine Screen Not Detected; U Buprenorphine Screen Not Detected; U Cannabinoids Screen Not Detected; U Cocaine Screen Not Detected; U Methadone Screen Not Detected; U Methamphetamine Screen DETECTED; U Opiates Screen Not Detected; U Oxycodone Screen Not Detected; U Phencyclidine Screen Not Detected; U Propoxyphene Screen Not Detected
--- NOTE | 2022-07-26 17:21 | NUR ---
Arousable to voice, cooperative. Lethargic and falls back to sleep, snoring, quickly. Respirations are unlabored, HOB 29 degrees elevation. sinus tachycardia by telemetry monitoring. Redraw of potassium done at this time. NGT continues on low continuous wall suction, evacuating dark brown liquid, 150 cc so far this shift.
--- NOTE | 2022-07-26 18:57 | NUR ---
Pt arouses to voice. Following directions, oriented and cooperative. Falls back to sleep quickly. When awake, states that he feels awful and his belly his hurting. NGT remains to CWS, secured and evacuating pale to dark brown translucent liquid. Pt was repositioned and pillows placed under hips and left arm elevated on pillow due to swelling persisting in hand and right forearm. Oral care was done with moist swabs, pt assisting.
[2022-07-27 03:34] LABS: Hematocrit 31.6 % (37.0-53.0); Hemoglobin 10.5 g/dL (13.5-17.5); Mean Corpuscular HGB 27.6 pg (26.0-34.0); Mean Corpuscular HGB Conc 33.2 g/dL (31.5-36.5); Mean Corpuscular Volume 83 fL (80-100); Platelet Count 151 K/mm3 (150-400); RDW Coefficient Variation 15.1 % (11.7-14.2); RDW Standard Deviation 45.6 fL (35.1-46.3); White Blood Cell Count 10.31 K/mm3 (4.00-11.30)
[2022-07-27 03:53] LABS: Magnesium, Blood 2.1 mg/dL (1.6-2.4)
[2022-07-27 04:14] LABS: BAND PERCENT MAN 25 % (0-8); BASOPHILS PERCENT MAN 0 % (0-2); EOSINOPHILS PERCENT MAN 0 % (0-6); LYMPHOCYTES ABSOLUTE MAN 0.72 K/mm3 (0.84-5.20); LYMPHOCYTES PERCENT MAN 7 % (21-46); METAMYELOCYTE ABSOLUTE MAN 0.51 K/mm3 (0.00-0.00); METAMYELOCYTE PERCENT MAN 5 % (0-0); MONOCYTES ABSOLUTE MAN 0.72 K/mm3 (0.16-1.47); MONOCYTES PERCENT MAN 7 % (4-13); NEUTROPHILS ABSOLUTE MAN 8.24 K/mm3 (1.96-9.15); OTHER CELL PERCENT MAN 1 % (0-0); SEG NEUTROPHILS PERCENT MAN 55 % (41-73); TOTAL CELLS COUNTED 100
--- NOTE | 2022-07-27 05:15 | NUR ---
SHIFT SUMMARY: PT REMAINS LETHARGIC, ABLE TO RESPOND TO VERBAL STIMULI AND ANSWER QUESTIONS APPROPRIATELY. BP STABLE, HR ST 100-110'S, AFEBRILE, SATS >94% ON ROOM AIR. NG REMAINS IN PLACE, CONNECTED TO LOW CONTINUOUS SUCTION, APPROX 15 ML OUT THIS SHIFT. PT WITH ELEVATED POTASSIUM START OF SHIFT, CALL PLACED TO MD, NEW ORDERS RECEIVED, SEE EMAR. GARG CATH REMAINS IN PLACE DRAINING DARK ROSETTA URINE TO GRAVITY. APPROX 400ML OF OUTPUT THIS SHIFT. NO BM. REPOS Q2 TO MAINTAIN SKIN INTEGRITY. NS GTT IN BAY @100ML/HR. BED IN LOW, CALL LIGHT IN REACH, WILL REPORT TO ONCOMING RN.
[2022-07-27 05:18] LABS: Bilirubin, Total 0.7 mg/dL (0.1-1.0); Bun/Creatinine Ratio 17.6 (12.0-20.0); Calcium, Blood 10.5 mg/dL (8.5-10.1); Creatinine, Blood 4.84 mg/dL (0.60-1.20); Potassium, Blood 5.6 mmol/L (3.5-5.5)
[2022-07-27 05:19] LABS: Albumin/Globulin Ratio 0.6 (0.8-1.8); Globulin, Blood 3.4 g/dL (2.2-4.0)
[2022-07-27 05:36] LABS: Total Protein, Blood 5.4 g/dL (6.4-8.2)
--- NOTE | 2022-07-27 07:17 | NUR ---
Bedside report received from REAL Nguyen. Pt appears to be sleeping , respirations even unlabored. Sinus tachycardia noted by telemetry, 99 bpm. 96% SpO2; Blood pressure stable, slightly elevated. NGT to CWS puttin out brown green liquid. Belly still very tender to touch; noc shift reports that the pt is now yelling out in pain with any repositioning. No more BM on noc shift. Urine output speech therapist in color, and increasing in amount. IVF infusing at 100 cc/hour via powerglide IV in the LUE. Pt still has edema of the hands and right wrist. These are elevated on pillows.
--- NOTE | 2022-07-27 10:56 | NUR ---
Pt was calling out, stating in pain 10/10 all over his belly. Also said that he is having nausea. ORal care done, face washed by nursing assistants teacher. Given zofran. He is back to sleep now.
--- NOTE | 2022-07-27 11:19 | NUR ---
Pt states nausea is resolved. Given fentanyl for pain; states upon reassessment that his pain is 10/10; but he is very drowsy, as before the administration, and falls asleep readily. States that he hates fentanyl because he has seen too many people overdose on it. He states morphine works better for him for pain. Asks why his breathing is so bad; He took some deep breaths and coughed up white sputum, then dark brown and white sputum. SpO2 95% on room air, RR 22-24/minute. Repositioned to the right side, pillows for support and elevation of edematous hands. He tolerated it very well.
--- NOTE | 2022-07-27 16:37 | NUR ---
Pt states that his abdomen is slightly less painful now. States he might try to have a BM. He is sitting up in the chair, states that he does not have nausea.
--- NOTE | 2022-07-27 18:13 | NUR ---
1700 Pt was assisted from the recliner chair to the BSC to have BM. Had 300 cc of very thin liquid brown stool. Sent for GI panel as ordered. Urine and blood specimens also collected. Pt requested back to bed. He is weak, but able to transfer with minimal assistance. 1800 Resting in bed, eyes closed, respirations even and unlabored. Sinus tachycardia 98 bpm at this time. 96% spo2 on room air.
[2022-07-27 19:36] LABS: Adenovirus F 40/41 Not Detected (NOT DETECT); Astrovirus Not Detected (NOT DETECT); Campylobacter Sp Not Detected (NOT DETECT); Cryptosporidium Not Detected (NOT DETECT); Cyclospora Cayetanensis Not Detected (NOT DETECT); E. Coli O157 Not Detected (NOT DETECT); Entamoeba Histolytica Not Detected (NOT DETECT); Enteroaggregative E. coli-EAEC Not Detected (NOT DETECT); Enteropathogenic E. coli-EPEC Not Detected (NOT DETECT); Enterotoxigenic E. coli-ETEC Not Detected (NOT DETECT); Giardia Lamblia Not Detected (NOT DETECT); Norovirus GI/GII Not Detected (NOT DETECT); Plesiomonas Shigelloides Not Detected (NOT DETECT); Rotavirus A Not Detected (NOT DETECT); Salmonella Sp Not Detected (NOT DETECT); Sapovirus Not Detected (NOT DETECT); Shiga Toxin-prod E. coli-STEC Not Detected (NOT DETECT); Shigella/Enteroin E. coli-EIEC Not Detected (NOT DETECT); Vibrio Cholerae Not Detected (NOT DETECT); Vibrio Sp Not Detected (NOT DETECT); Yersinia Enterocolitica Not Detected (NOT DETECT)
[2022-07-28 04:29] LABS: Hematocrit 34.2 % (37.0-53.0); Hemoglobin 11.3 g/dL (13.5-17.5)
[2022-07-28 04:47] LABS: Albumin/Globulin Ratio 0.5 (0.8-1.8); Bilirubin, Total 0.6 mg/dL (0.1-1.0); Bun/Creatinine Ratio 19.8 (12.0-20.0); Calcium, Blood 10.4 mg/dL (8.5-10.1); Creatinine, Blood 4.64 mg/dL (0.60-1.20); Globulin, Blood 3.9 g/dL (2.2-4.0); Magnesium, Blood 2.3 mg/dL (1.6-2.4); Phosphorus, Blood 4.6 mg/dL (2.5-4.9); Potassium, Blood 5.1 mmol/L (3.5-5.5); Total Protein, Blood 5.9 g/dL (6.4-8.2)
--- NOTE | 2022-07-28 05:51 | NUR ---
SHIFT SUMMARY PT A&Ox4, MUCH MORE ALERT THAN PREVIOUS DAYS, COMMUNICATES NEEDS APPROPRIATELY. SpO2> 92% RA, DENIES SOB. BP ELEVATED WITH SBP 150's, SR-ST 90-100's, DENIES CP/PRESSURE. AFEBRILE. NG TUBE REMAINED PATENT AND IN SAME POSITION CONNECTED TO LOW CONTINUOUS SUCTION, TOTAL OUTPUT 300mLs WITH SHIFT. Q2 TURNS PROVIDED TO MAINTAIN SKIN INTEGRITY. NS @ 50mLs/hr. GARG CATHETER IN PLACE, PATENT, DRAINING TO GRAVITY, TOTAL OF 1750mLs OUT THIS SHIFT. NO BM THIS SHIFT. NO OTHER EVENTS, WILL REPORT TO ONCOMING RN.
--- NOTE | 2022-07-28 08:06 | NUR ---
Pt is awake, much more alert and talkative than yesterday evening. States his belly pain is 6/10 and much better than before. STates passing a little gas. Tenderness to palpation in the left lower quadrant. He is asking for pain medication. States he wants pain to be completely gone. Asking for cranberry juice in his mouth swabs. NGT to CWS, noc shift states that it put out 300 cc last night. Noted dark brown liquid being evacuated. Apresoline given for elevated blood pressure, 178/107 at this time. Afbrile, 98.1 Lung sounds are clear. Pt did deep breathing and coughing, clear to white sputum coughed up.
[2022-07-28 08:16] LABS: Hemoglobin 11.3 g/dL (13.5-17.5); Mean Corpuscular HGB 26.5 pg (26.0-34.0); Mean Corpuscular HGB Conc 31.4 g/dL (31.5-36.5); Mean Corpuscular Volume 85 fL (80-100); Mean Platelet Volume 11.2 fL (9.1-12.4); Platelet Count 176 K/mm3 (150-400); RDW Coefficient Variation 15.7 % (11.7-14.2); Red Blood Cell Count 4.26 M/mm3 (4.30-5.90); White Blood Cell Count 13.21 K/mm3 (4.00-11.30)
[2022-07-28 08:47] LABS: BAND PERCENT MAN 19 % (0-8); BASOPHILS PERCENT MAN 0 % (0-2); EOSINOPHILS ABSOLUTE MAN 0.26 K/mm3 (0.00-0.68); EOSINOPHILS PERCENT MAN 2 % (0-6); LYMPHOCYTES ABSOLUTE MAN 0.66 K/mm3 (0.84-5.20); LYMPHOCYTES PERCENT MAN 5 % (21-46); MONOCYTES ABSOLUTE MAN 0.79 K/mm3 (0.16-1.47); MONOCYTES PERCENT MAN 6 % (4-13); NEUTROPHILS ABSOLUTE MAN 11.49 K/mm3 (1.96-9.15); SEG NEUTROPHILS PERCENT MAN 68 % (41-73); TOTAL CELLS COUNTED 100
--- NOTE | 2022-07-28 09:33 | NUR ---
PCT assisted pt with sponge bath at side of bed, and then pt was OOB to recliner, which he only tolerated briefly due to pain from a chronic back problem. States he takes neurontin for this pain at home. He is back in bed now. STates that he had a liquid brown bowel movement this morning. States belly pain is 6/10.
--- NOTE | 2022-07-28 13:35 | NUR ---
Pt appears to be sleeping comfortably, eyes are closed. Respirations normal effort and regular rate.
--- NOTE | 2022-07-28 14:03 | NUR ---
Given apresoline for elevated blood pressure. Also given fentanyl per PRN orders for reported pain 8/10 in his abdomen. Pt states he really wants to get the tube out of his nose and to go home. STates that he has a lot of people around who would help him. He lives at the [employer] in some kind of trailer, he states.
--- NOTE | 2022-07-28 14:41 | NUR ---
Reports that his abdominal pain is 5/10, and tolerable at this level after pain medication. Denies any back pain at this time.
--- NOTE | 2022-07-28 15:20 | NUR ---
NGT clamped. Castaneda was dc'd. Pt ambulated, using the walker, and gait belt on and 1 staff assist to the sink for oral care. Declined sitting in chair because it hurts his back. Got back into bed, states he feels so much better.
--- NOTE | 2022-07-28 18:03 | NUR ---
Pt has been alert, oriented and cooperative with care generally. Asking frequently for juice, water, coffee, etc. today. He verbalized understanding this evening when I explained the reason for waiting to see if he would tolerate the clamped NGT. But continues to talk about wanting something to drink. No nausea, no increase in abdominal pain since clamping the NGT. He did not tolerate sitting in the recliner for longer than a few minutes this morning; states he has chronic back pain. Abdominal pain once this shift requiring medication, states relief to 5/10 pain level. Blood pressure elevated requiring prn apresoline twice; this evening it was significantly lower, and heart rate also noted a little lower. Castaneda catheter was dc'd and the pt has voided twice. Requested that he use the urinal for measurments, but both voids were during use of BSC for passing stool so they were mixed with liquid stool. He has four times passed thin liquid brown stool today.
[2022-07-29 04:48] LABS: Hematocrit 36.4 % (37.0-53.0); Hemoglobin 11.7 g/dL (13.5-17.5); Mean Corpuscular HGB 27.3 pg (26.0-34.0); Mean Corpuscular HGB Conc 32.1 g/dL (31.5-36.5); Mean Corpuscular Volume 85 fL (80-100); Mean Platelet Volume 10.8 fL (9.1-12.4); Platelet Count 188 K/mm3 (150-400); RDW Coefficient Variation 15.9 % (11.7-14.2); RDW Standard Deviation 48.9 fL (35.1-46.3); Red Blood Cell Count 4.28 M/mm3 (4.30-5.90); White Blood Cell Count 15.25 K/mm3 (4.00-11.30)
[2022-07-29 05:04] LABS: Albumin, Blood 2.1 g/dL (3.4-5.0); Albumin/Globulin Ratio 0.5 (0.8-1.8); Bilirubin, Direct 0.2 mg/dL (0.0-0.3); Bilirubin, Indirect 0.5 mg/dL (0.1-0.7); Bilirubin, Total 0.7 mg/dL (0.1-1.0); Bun/Creatinine Ratio 24.3 (12.0-20.0); Calcium, Blood 10.5 mg/dL (8.5-10.1); Creatinine, Blood 3.58 mg/dL (0.60-1.20); Globulin, Blood 3.9 g/dL (2.2-4.0); Phosphorus, Blood 3.5 mg/dL (2.5-4.9); Potassium, Blood 4.8 mmol/L (3.5-5.5)
[2022-07-29 05:12] LABS: BAND PERCENT MAN 12 % (0-8); BASOPHILS PERCENT MAN 0 % (0-2); EOSINOPHILS ABSOLUTE MAN 0.15 K/mm3 (0.00-0.68); EOSINOPHILS PERCENT MAN 1 % (0-6); LYMPHOCYTES ABSOLUTE MAN 1.22 K/mm3 (0.84-5.20); LYMPHOCYTES PERCENT MAN 8 % (21-46); MONOCYTES ABSOLUTE MAN 1.06 K/mm3 (0.16-1.47); MONOCYTES PERCENT MAN 7 % (4-13); NEUTROPHILS ABSOLUTE MAN 12.81 K/mm3 (1.96-9.15); SEG NEUTROPHILS PERCENT MAN 72 % (41-73); TOTAL CELLS COUNTED 100
--- NOTE | 2022-07-29 07:15 | NUR ---
SHIFT SUMMARY: PT A&OX4. DENIES ANY NAUSEA, SOB, OR CHEST PAIN DURING THIS SHIFT. NG TUBE CLAMPED ALL NIGHT UNTIL 0400, NG TUBE REMOVED DUE TO PT COMPLAINING OF IT BEING UNCOMFORTABLE. HR RATE HAS DECREASED INTO 70-80'S. MEDICATED FOR BP X 1, SEE EMAR. DR. RIZZO INFORMED OF HIGH BP THIS A.M. RECEIVED ORDER FOR ADDITIONAL BP MED, INFORMED DAYSHIFT RN. O2 SATS > 92% ON RA. RESPIRATIONS EVEN AND UNLABORED. NO ACUTE CHANGES DURING THIS SHIFT.
--- NOTE | 2022-07-29 10:30 | NUR ---
Assumed care for pt at 0700. NG tube was removed at 0400 this morning, he has no complaints, dneies pain or N/V. Tolerated sips of water during med pass. Castaneda was removed on 07/28, pt has been using the urinal w/o difficulty. Proglide R upper arm and US IV left upper arm.
--- NOTE | 2022-07-29 18:52 | NUR ---
Pt had NG tube removed at 0400 this morning. Took sips of water throughout the day, then advanced his diet to Clear Liquids for dinner. Pt had x2 BM today. Post dinner, ambulated pt in lutz roughly 50 feet w/ a walker then placed pt back in bed, abdomen remains firm.
[2022-07-30 04:52] LABS: Albumin, Blood 2.3 g/dL (3.4-5.0); Anion Gap 4 mmol/L (6-16); Blood Urea Nitrogen 70 mg/dL (8-24); Bun/Creatinine Ratio 24.1 (12.0-20.0); CO2, Blood 19 mmol/L (21-32); Calcium, Blood 10.2 mg/dL (8.5-10.1); Chloride, Blood 121 mmol/L (98-108); Glomerular Filtration Rate 24 (60-); Glucose, Blood 102 mg/dL (70-99); Phosphorus, Blood 2.5 mg/dL (2.5-4.9); Potassium, Blood 4.3 mmol/L (3.5-5.5); Sodium, Blood 144 mmol/L (136-145)
--- NOTE | 2022-07-30 05:17 | NUR ---
SHIFT SUMMARY: PT A&OX4. COMPLAINING OF PAIN IN ABDOMEN AND NAUSEA. ABDOMEN IS FIRM TO PALPATION, MODERATELY DISTENDED, WITH ABSCENT BOWEL TONES. MEDICATED FOR PAIN AND NAUSEA, SEE EMAR, WITH MINIMAL EFFECT. PT HAD LARGE, BROWN EMESIS, REPORTS FEELING SLIGHTLY IMPROVED AFTER EMESIS. RECEIVED ORDERS FOR NG TUBE TO BE PLACED FROM DR. MUÑOZ. LARGE AMOUNTS OF BROWN STOMACH CONTENCE RETURNED TO CANISTER WITH NG TUBE PLACEMENT. PT CONTINUES TO COMPLAIN OF STOMACH PAIN AND CAMPING. RECEIVED ORDER FOR ATIVAN FROM DR. MUÑOZ TO HELP WITH CRAMPING WITH MODERATE AFFECT. NG TUBE ACCEDENTLY REMOVED BY PT, ABLE TO REPLACE WITH MINIMAL DIFFICULTY. HYPERTENSION MEDICATED WITH PRN MEDICATIONS TO GOOD AFFECT. DENIES ANY CHEST PAIN OR PRESSURE. REMAINS SR TO ST.
[2022-07-30 06:37] LABS: BASOPHILS ABSOLUTE AUTO 0.09 K/mm3 (0.00-0.23); BASOPHILS PERCENT AUTO 1 % (0-2); Hematocrit 36.4 % (37.0-53.0); Hemoglobin 11.8 g/dL (13.5-17.5); LYMPHOCYTES ABSOLUTE AUTO 1.08 K/mm3 (0.84-5.20); LYMPHOCYTES PERCENT AUTO 7 % (21-46); MONOCYTES PERCENT AUTO 10 % (4-13); Mean Corpuscular HGB 27.4 pg (26.0-34.0); Mean Corpuscular HGB Conc 32.4 g/dL (31.5-36.5); Mean Corpuscular Volume 85 fL (80-100); Mean Platelet Volume 10.7 fL (9.1-12.4); Platelet Count 186 K/mm3 (150-400); RDW Coefficient Variation 15.9 % (11.7-14.2); RDW Standard Deviation 49.2 fL (35.1-46.3); Red Blood Cell Count 4.31 M/mm3 (4.30-5.90); White Blood Cell Count 15.52 K/mm3 (4.00-11.30)
[2022-07-30 06:45] LABS: EOSINOPHILS ABSOLUTE AUTO 0.13 K/mm3 (0.00-0.68); EOSINOPHILS PERCENT AUTO 1 % (0-6); IMMATURE GRAN ABSOLUTE AUTO 0.14 K/mm3 (0.00-0.10); IMMATURE GRAN PERCENT AUTO 1 % (0-1); NEUTROPHILS ABSOLUTE AUTO 12.48 K/mm3 (1.96-9.15); NEUTROPHILS PERCENT AUTO 80 % (41-73)
[2022-07-30 15:13] LABS: Campylobacter Sp Not Detected (NOT DETECT)
[2022-07-30 15:14] LABS: Adenovirus F 40/41 Not Detected (NOT DETECT); Astrovirus Not Detected (NOT DETECT); Cryptosporidium Not Detected (NOT DETECT); Cyclospora Cayetanensis Not Detected (NOT DETECT); E. Coli O157 Not Detected (NOT DETECT); Entamoeba Histolytica Not Detected (NOT DETECT); Enteroaggregative E. coli-EAEC Not Detected (NOT DETECT); Enteropathogenic E. coli-EPEC Not Detected (NOT DETECT); Enterotoxigenic E. coli-ETEC Not Detected (NOT DETECT); Giardia Lamblia Not Detected (NOT DETECT); Norovirus GI/GII Not Detected (NOT DETECT); Plesiomonas Shigelloides Not Detected (NOT DETECT); Rotavirus A Not Detected (NOT DETECT); Salmonella Sp Not Detected (NOT DETECT); Sapovirus Not Detected (NOT DETECT); Shiga Toxin-prod E. coli-STEC Not Detected (NOT DETECT); Shigella/Enteroin E. coli-EIEC Not Detected (NOT DETECT); Vibrio Cholerae Not Detected (NOT DETECT); Vibrio Sp Not Detected (NOT DETECT); Yersinia Enterocolitica Not Detected (NOT DETECT)
--- NOTE | 2022-07-30 17:15 | NUR ---
SHIFT SUMMARY PT REMAINS ORIENTED, BUT HAS BEEN DROWSY MOST OF SHIFT. BP STABLE. HR REMAINS NSR TO SINUS TACH. O2 SATS REMAIN ABOVE 90% ON RA. PT COMPLAINS OF FEELING HUNGRY AND WANTS TO EAT. PT PROVIDED ICE CHIPS. NG TUBE TO LIS WITH DARK GREEN OUTPUT. WILL CONTINUE TO MONITOR AND REPORT TO ONCOMING RN. CALL LIGHT IN REACH
[2022-07-31 04:16] LABS: Hematocrit 36.2 % (37.0-53.0); Hemoglobin 11.7 g/dL (13.5-17.5); Mean Corpuscular HGB 27.1 pg (26.0-34.0); Mean Corpuscular HGB Conc 32.3 g/dL (31.5-36.5); Mean Corpuscular Volume 84 fL (80-100); Mean Platelet Volume 10.5 fL (9.1-12.4); Platelet Count 199 K/mm3 (150-400); RDW Coefficient Variation 15.9 % (11.7-14.2); RDW Standard Deviation 48.8 fL (35.1-46.3); Red Blood Cell Count 4.32 M/mm3 (4.30-5.90); White Blood Cell Count 16.94 K/mm3 (4.00-11.30)
[2022-07-31 04:37] LABS: Bun/Creatinine Ratio 24.2 (12.0-20.0); Calcium, Blood 9.7 mg/dL (8.5-10.1); Creatinine, Blood 2.65 mg/dL (0.60-1.20); Potassium, Blood 3.7 mmol/L (3.5-5.5)
[2022-07-31 04:39] LABS: BAND PERCENT MAN 15 % (0-8); BASOPHILS ABSOLUTE MAN 0.16 K/mm3 (0.00-0.23); BASOPHILS PERCENT MAN 1 % (0-2); EOSINOPHILS ABSOLUTE MAN 0.16 K/mm3 (0.00-0.68); EOSINOPHILS PERCENT MAN 1 % (0-6); LYMPHOCYTES ABSOLUTE MAN 0.84 K/mm3 (0.84-5.20); LYMPHOCYTES PERCENT MAN 5 % (21-46); MONOCYTES ABSOLUTE MAN 1.52 K/mm3 (0.16-1.47); MONOCYTES PERCENT MAN 9 % (4-13); NEUTROPHILS ABSOLUTE MAN 14.22 K/mm3 (1.96-9.15); SEG NEUTROPHILS PERCENT MAN 69 % (41-73); TOTAL CELLS COUNTED 100
--- NOTE | 2022-07-31 12:34 | NUR ---
UPDATE PT REMAINS ALERT AND ORIENTED. HR NSR. BP ELEVATED THIS AM, BUT PT IN PAIN. PT MEDICATED PER EMAR AND BP IMPROVED. PAIN IMPROVED WITH MEDICATION ADMINISTRATION. NG TO SUCTION ORDERED WITH DARK GREEN OUTPUT. STATUS CHANGED TO SURGICAL. REPORT GIVEN TO MEDICAL FLOOR RN. PT TAKEN UP BY PARK WITH ALL OF HIS BELONGINGS.
[2022-07-31 15:09] LABS: A/G RATIO 0.9 (0.7-1.7); ALBUMIN 2.3 g/dL (2.9-4.4); ALPHA-1-GLOBULIN 0.4 g/dL (0.0-0.4); ALPHA-2-GLOBULIN 0.8 g/dL (0.4-1.0); BETA GLOBULIN 0.7 g/dL (0.7-1.3); GAMMA GLOBULIN 0.7 g/dL (0.4-1.8); GLOBULIN, TOTAL 2.6 g/dL (2.2-3.9); M-SPIKE Not Observed g/dL (Not Observed); PROTEIN, TOTAL, SERUM 4.9 g/dL (6.0-8.5)
--- NOTE | 2022-07-31 15:51 | NUR ---
SHIFT SUMMARY PATIENT IS ALERT AND ORIENTED. PATIENT IS A TRANSFER FROM PCU AT LUNCHTIME. PATIENT HAS NG TUBE CONNECTED TO INTERMITTENT SUCTION. PATIENT HAS HAD NO ACUTE EVENTS THIS SHIFT. VITAL SIGNS REVIEWED. PATIENT HAS COMPLAINED OF PAIN AND MEDICATED PER EMAR. PATIENT HAS NOT COMPLAINED OF SON, NAUSEA, OR VOMITTING THIS SHIFT. BED IN LOCKED AND LOWEST POSITION. CALL LIGHT IN PLACE.
--- NOTE | 2022-08-01 04:02 | NUR ---
SHIFT MOSTLY UNREMARKABLE. PAIN WELL MANAGED ON CURRENT MEDICATION REGIMEN. NG TUBE SET TO INTERMITTENT SUCTION AND FUNCTIONING PROPERLY. EARLY THIS MORNING PT TRANSFERRED TO BEDSIDE COMMODE AND PASSED VERY LOOSE BUT FIRM BM, APPROXIMATELY 6 OZ OF VOLUME. PT REMAINS NPO WITH EXCEPTION OF OCCASIONAL ICE CHIPS. CALL LIGHT LEFT WITHIN REACH.
[2022-08-01 05:27] LABS: Hematocrit 36.1 % (37.0-53.0); Hemoglobin 11.4 g/dL (13.5-17.5)
[2022-08-01 05:31] LABS: Albumin, Blood 1.9 g/dL (3.4-5.0); Anion Gap 6 mmol/L (6-16); Blood Urea Nitrogen 52 mg/dL (8-24); Bun/Creatinine Ratio 23.1 (12.0-20.0); CO2, Blood 18 mmol/L (21-32); Calcium, Blood 9.5 mg/dL (8.5-10.1); Chloride, Blood 116 mmol/L (98-108); Creatinine, Blood 2.25 mg/dL (0.60-1.20); Glomerular Filtration Rate 32 (60-); Glucose, Blood 113 mg/dL (70-99); Phosphorus, Blood 2.7 mg/dL (2.5-4.9); Potassium, Blood 3.6 mmol/L (3.5-5.5); Sodium, Blood 140 mmol/L (136-145)
[2022-08-01 13:08] LABS: PROTEIN,TOTAL,URINE 47.3 mg/dL (Not Estab.)
--- NOTE | 2022-08-01 18:25 | NUR ---
SHIFT SUMMARY PT A&OX4 AND IN PLEASENT MOOD T/O SHIFT. PT REQUESTS "COKE". PRESS BRAKE OPERATOR IN TO SEE PT THIS SHIFT, CONCERN DUE TO NO NUTRITION FOR [address] NG TUBE IN PLACE AND DRAINING DARK GREEN FLUID TO LOW SUCTION. CT W/ ORAL CONTRAST COMPLETE THIS SHIFT. PT IN OR W/ DR. COHEN AT THIS TIME DUE TO CONCERN ABOUT AIR FOUND IN COLON-PLAN TO TRANSFER TO SURG UNIT POST OP. PT NPO SINCE APPROX 1400 DUE TO ORAL CONTRAST REPORTED TO DR. COHEN. BLOOD GLUCOSE CHECKED PRIOR TO OR BY THIS RN PER NPO PROTOCOL.
[2022-08-01 23:00] LABS: Bun/Creatinine Ratio 15.6 (12.0-20.0); Calcium, Blood 7.8 mg/dL (8.5-10.1); Creatinine, Blood 2.7 mg/dL (0.60-1.20); Potassium, Blood 4.2 mmol/L (3.5-5.5)
[2022-08-01 23:07] LABS: PO2 Arterial 128 mmHg (80-100)
[2022-08-01 23:08] LABS: Hematocrit 34.3 % (37.0-53.0); Hemoglobin 10.5 g/dL (13.5-17.5); Mean Corpuscular HGB 27.1 pg (26.0-34.0); Mean Corpuscular HGB Conc 30.6 g/dL (31.5-36.5); Mean Corpuscular Volume 88 fL (80-100); Mean Platelet Volume 10.6 fL (9.1-12.4); NRBC ABSOLUTE 0.02 K/mm3 (0.00-0.02); Platelet Count 342 K/mm3 (150-400); RDW Coefficient Variation 16.2 % (11.7-14.2); RDW Standard Deviation 52.5 fL (35.1-46.3); Red Blood Cell Count 3.88 M/mm3 (4.30-5.90); White Blood Cell Count 41.28 K/mm3 (4.00-11.30)
[2022-08-01 23:49] LABS: BAND PERCENT MAN 24 % (0-8); BASOPHILS PERCENT MAN 0 % (0-2); EOSINOPHILS PERCENT MAN 0 % (0-6); LYMPHOCYTES ABSOLUTE MAN 0.82 K/mm3 (0.84-5.20); LYMPHOCYTES PERCENT MAN 2 % (21-46); METAMYELOCYTE ABSOLUTE MAN 0.82 K/mm3 (0.00-0.00); METAMYELOCYTE PERCENT MAN 2 % (0-0); MONOCYTES ABSOLUTE MAN 1.23 K/mm3 (0.16-1.47); MONOCYTES PERCENT MAN 3 % (4-13); MYELOCYTE ABSOLUTE MAN 0.41 K/mm3 (0.00-0.00); MYELOCYTE PERCENT MAN 1 % (0-0); NEUTROPHILS ABSOLUTE MAN 37.97 K/mm3 (1.96-9.15); SEG NEUTROPHILS PERCENT MAN 68 % (41-73); TOTAL CELLS COUNTED 100
[2022-08-02 01:53] LABS: Hematocrit 33.4 % (37.0-53.0); Hemoglobin 10.3 g/dL (13.5-17.5)
[2022-08-02 03:57] LABS: Hematocrit 31.5 % (37.0-53.0); Hemoglobin 9.9 g/dL (13.5-17.5); Mean Corpuscular HGB 27.5 pg (26.0-34.0); Mean Corpuscular HGB Conc 31.4 g/dL (31.5-36.5); Mean Corpuscular Volume 88 fL (80-100); Mean Platelet Volume 10.8 fL (9.1-12.4); NRBC ABSOLUTE 0.03 K/mm3 (0.00-0.02); Platelet Count 344 K/mm3 (150-400); RDW Coefficient Variation 16.1 % (11.7-14.2); RDW Standard Deviation 51.6 fL (35.1-46.3)
[2022-08-02 03:58] LABS: Base Excess Venous -13.1 mmol/L; Bicarbonate Venous 14.6 mmol/L (24.0-30.0); PCO2 Venous 35.9 mmHg (38-42); pH Blood Venous 7.22 (7.34-7.37)
[2022-08-02 04:00] LABS: White Blood Cell Count 76.08 K/mm3 (4.00-11.30)
[2022-08-02 04:49] LABS: Albumin, Blood 1.3 g/dL (3.4-5.0); Albumin/Globulin Ratio 0.4 (0.8-1.8); Bilirubin, Total 1.6 mg/dL (0.1-1.0); Bun/Creatinine Ratio 14.6 (12.0-20.0); Calcium, Blood 8.1 mg/dL (8.5-10.1); Creatinine, Blood 3.16 mg/dL (0.60-1.20); Globulin, Blood 3.1 g/dL (2.2-4.0); Magnesium, Blood 1.6 mg/dL (1.6-2.4); Potassium, Blood 4.5 mmol/L (3.5-5.5); Total Protein, Blood 4.4 g/dL (6.4-8.2)
[2022-08-02 05:51] LABS: BAND PERCENT MAN 11 % (0-8); BASOPHILS PERCENT MAN 0 % (0-2); EOSINOPHILS PERCENT MAN 0 % (0-6); METAMYELOCYTE ABSOLUTE MAN 0.76 K/mm3 (0.00-0.00); METAMYELOCYTE PERCENT MAN 1 % (0-0); MONOCYTES ABSOLUTE MAN 0.76 K/mm3 (0.16-1.47); MONOCYTES PERCENT MAN 1 % (4-13); MYELOCYTE ABSOLUTE MAN 0.76 K/mm3 (0.00-0.00); MYELOCYTE PERCENT MAN 1 % (0-0); NEUTROPHILS ABSOLUTE MAN 73.03 K/mm3 (1.96-9.15); PROMYELOCYTE ABSOLUTE MAN 0.76 K/mm3 (0.00-0.00); PROMYELOCYTE PERCENT MAN 1 % (0-0); SEG NEUTROPHILS PERCENT MAN 85 % (41-73); TOTAL CELLS COUNTED 100
[2022-08-02 05:56] LABS: Source, Urine Foley catheter
[2022-08-02 06:35] LABS: Bilirubin, Urine Neg (Neg); Blood, Urine 3+ (Neg); Glucose Qualitative, Urine Neg (Neg); Ketones, Urine Neg (Neg); Leukocyte Esterase, Urine Neg (Neg); Nitrite, Urine Neg (Neg); Protein, Urine 3+ (Neg); Specific Gravity, Urine 1.015 (1.003-1.022); Urobilinogen, Urine NORM (Normal)
--- NOTE | 2022-08-02 06:39 | NUR ---
SHIFT SUMMARY: Patient arrived from OR at around 2215. Report received from anesthesia. Patient was initally paralyzed and sedated. Around 2300, he started to wake up and move around. Eventually, BP dropped requiring pressors. Central line placed by fisher weir. Pressor needs increased, vasopressin added and additional bolus given. MD aware of low urine output. At the end of the shift, levophed requriement is decreasing and patient is becoming more alert and restless, requiring higher propofol dose and fentanyl pushes. Lactate trending down.
--- NOTE | 2022-08-02 07:00 | NUR ---
ASSUME CARE: I have assume care of this patient.
[2022-08-02 07:37] LABS: Appearance, Urine Clear (Clear); Color, Urine Yellow (P-Yellow)
[2022-08-02 07:38] LABS: Amorphous Mod (0-Heavy); Bacteria Mod /hpf; Mucus Light (0-Heavy); Red Blood Cells, Urine 0-2 /hpf (0-2); Squamous Epithelial Cells Rare /hpf (Few)
--- NOTE | 2022-08-02 10:45 | NUR ---
TO OR: pt to OR with CHUCK SPLITTER and anesthesia.
--- NOTE | 2022-08-02 12:35 | NUR ---
08/02/22 1235 Argenis Reeves PATIENT ON SCHEDULED ABX.
--- NOTE | 2022-08-02 13:48 | NUR ---
RETURN FROM OR: pt back to icu room from OR with anesthesia.
--- NOTE | 2022-08-02 18:08 | NUR ---
PROVIDER UPDATE: Dr Souza notified of pt's UOP. Telephone order for renal panel.
--- NOTE | 2022-08-02 18:17 | NUR ---
SHIFT SUMMARY: pt to OR for abdominal closure today. he returned with two JEFF drains (LLQ & LUQ, ostomy in RLQ and midline incision dressed with ODALYS drain. Ostomy appliance placed in OR; stoma is pink. JEFF drains with serosanguineous drainage. Midline dressing with scant drainage that has been marked for observation. NEURO: One dose of PRN fentanyl given this AM for restlessness and tachypnea. Propofol currently at 20. Fentanyl COCOA POWDER MIXER OPERATOR started. CARDIAC: attempted to stop vasopressin unsucessfully. Currently NSR with occasional PVCs RESPIRATORY: vent settings AC/VC 16/500/45%/5 GI/: minimal UOP, nephrology notified. Fluid balance +3.5L after liter received in OR. SKIN: no new skin breakdown observed
[2022-08-02 19:01] LABS: Albumin, Blood 1.3 g/dL (3.4-5.0); Anion Gap 5 mmol/L (6-16); Blood Urea Nitrogen 55 mg/dL (8-24); Bun/Creatinine Ratio 12.8 (12.0-20.0); CO2, Blood 16 mmol/L (21-32); Calcium, Blood 8.3 mg/dL (8.5-10.1); Chloride, Blood 118 mmol/L (98-108); Creatinine, Blood 4.29 mg/dL (0.60-1.20); Glomerular Filtration Rate 15 (60-); Glucose, Blood 141 mg/dL (70-99); Phosphorus, Blood 6.1 mg/dL (2.5-4.9); Potassium, Blood 4.8 mmol/L (3.5-5.5); Sodium, Blood 139 mmol/L (136-145)
[2022-08-03 03:40] LABS: Base Excess Venous -10.5 mmol/L; Bicarbonate Venous 16.7 mmol/L (24.0-30.0); PCO2 Venous 32.8 mmHg (38-42); pH Blood Venous 7.29 (7.34-7.37)
[2022-08-03 03:47] LABS: Hemoglobin 7.9 g/dL (13.5-17.5); Mean Corpuscular HGB 27.7 pg (26.0-34.0); Mean Corpuscular HGB Conc 32.9 g/dL (31.5-36.5); Mean Corpuscular Volume 84 fL (80-100); Mean Platelet Volume 10.8 fL (9.1-12.4); NRBC ABSOLUTE 0.04 K/mm3 (0.00-0.02); NRBC Auto 0.1 /100 WBC (0.0-0.2); Platelet Count 370 K/mm3 (150-400); RDW Coefficient Variation 16.3 % (11.7-14.2); RDW Standard Deviation 49.7 fL (35.1-46.3); Red Blood Cell Count 2.85 M/mm3 (4.30-5.90)
[2022-08-03 04:14] LABS: White Blood Cell Count 63.54 K/mm3 (4.00-11.30)
[2022-08-03 04:23] LABS: Magnesium, Blood 1.9 mg/dL (1.6-2.4)
[2022-08-03 04:30] LABS: Alanine Aminotransfer (ALT/SGP 1386 U/L (12-78); Albumin, Blood 1.5 g/dL (3.4-5.0); Albumin/Globulin Ratio 0.5 (0.8-1.8); Alk Phos 150 U/L (50-136); Anion Gap 7 mmol/L (6-16); Aspartate Aminotrans (AST/SGOT 2649 U/L (12-37); Bilirubin, Total 0.6 mg/dL (0.1-1.0); Blood Urea Nitrogen 63 mg/dL (8-24); Bun/Creatinine Ratio 13.1 (12.0-20.0); CO2, Blood 17 mmol/L (21-32); Calcium, Blood 8.1 mg/dL (8.5-10.1); Chloride, Blood 115 mmol/L (98-108); Creatinine, Blood 4.81 mg/dL (0.60-1.20); Globulin, Blood 2.8 g/dL (2.2-4.0); Glomerular Filtration Rate 13 (60-); Glucose, Blood 122 mg/dL (70-99); Phosphorus, Blood 4.5 mg/dL (2.5-4.9); Potassium, Blood 4.2 mmol/L (3.5-5.5); Sodium, Blood 139 mmol/L (136-145); Total Protein, Blood 4.3 g/dL (6.4-8.2); Triglycerides 147 mg/dL (30-160)
[2022-08-03 04:59] LABS: BAND PERCENT MAN 11 % (0-8); BASOPHILS PERCENT MAN 0 % (0-2); EOSINOPHILS PERCENT MAN 0 % (0-6); LYMPHOCYTES ABSOLUTE MAN 2.54 K/mm3 (0.84-5.20); LYMPHOCYTES PERCENT MAN 4 % (21-46); MONOCYTES ABSOLUTE MAN 1.27 K/mm3 (0.16-1.47); MONOCYTES PERCENT MAN 2 % (4-13); NEUTROPHILS ABSOLUTE MAN 59.72 K/mm3 (1.96-9.15); SEG NEUTROPHILS PERCENT MAN 83 % (41-73); TOTAL CELLS COUNTED 100
--- NOTE | 2022-08-03 06:07 | NUR ---
SHIFT SUMMARY NO ACUTE CHANGES. REMAINS INTUBATED- AC/VC 18/500/5/45%. RR 18-22. SEDATED WITH PROPOFOL AT 20MCG/KG/MIN. NOT FOLLOWING COMMANDS, BUT DOES WITHDRAW ALL EXTREMITIES TO NOXIOUS STIMULI AND SPONTANEOUSLY MOVES EXTREMITITES. DANO, 2MM. FENTANYL SPONGE FISHERMAN INFUSING AT 35MCG/HR CONTINUOUSLY. OCCASIONAL FACIAL GRIMACING NOTED WITH CARE. MONITOR SHOWS NSR, RATE 80s-90s. AFEBRILE. LEVOPHED AND VASOPRESSIN ARE BOTH OFF AT THIS TIME AND MAP IS >65. TPN INFUSING AT 75MLS/HR PER ORDER. BICARB GTT PER ORDER. NG WITH THICK BROWN DRAINAGE. COLOSTOMY WITH LIQUID BROWN STOOL. JEFF X 2 TO LEFT ABDOMEN WITH SEROSANGUINOUS DRAINAGE. ODALYS DRSG INTACT. GARG PATENT AND DRAINING YELLOW URINE. SCDs TO BLE. HAROON AND BAY CORTES PATENT, DRSGS C/D/I. WILL REPORT TO ONCOMING RN WHEN AVAILABLE.
--- NOTE | 2022-08-03 08:02 | NUR ---
08/03/22 0802 Erika Maddox VERIFICATIONS: EDIT CHART.
--- NOTE | 2022-08-03 13:02 | NUR ---
Pt resting in bed and remains intubated. Spoke with Primary RN Luz Maria, Dr Iglesias, and discussed case. Pt appears to be clinically improving. Attempted to call Pt's mother. Phone number listed is wrong number. Attempted to call [facility] to obtain contact information for mother. No answer. Will continue attempts to obtain contact information for Pt's mother. Palliative Care will remain available
[2022-08-03 17:34] LABS: Base Excess Venous -5.5 mmol/L; Bicarbonate Venous 20.3 mmol/L (24.0-30.0); PCO2 Venous 34.5 mmHg (38-42); pH Blood Venous 7.37 (7.34-7.37)
--- NOTE | 2022-08-03 18:16 | NUR ---
SHIFT SUMMARY: PT IS DAY 3 DAY POST OP FROM AN ABD PROCEDURE. HIS INCISION IS MIDLINE AND COVERED WITH A ODALYS DRESSING. THE DRESSING IS NOT PRODUCING EFFICIENT SUCTION D/T THE R LOW AREA OF THE DRESSING NO LONG ADHEREING TO THE SKIN. DRESSSING CHANGE WAS GRANTED BY DR. COHEN TO REGAIN PROFICIENT SUCTION. INCISION WAS CLEAN, INTACT, WITH MINIMAL DRAINAGE. REGAINING PROFICIENT SUCTION WAS NOT SUCCESSFUL DESPITE DRESSING CHANGE. CONTINUATION OF SUCTION WITH ODALYS DRESSING WASN'T PRESSING FOR SURGEON. PT HAS 2 JEFF DRAINS (LLQ, LUQ) THAT CONTINUE TO DRAIN. PTS STATUS FROM THIS MORNING HAD IMPROVED THROUGHOUT THE DAY WITH TITRATION OF PROPOFOL (SEE FLOW SHEET) HE GRADUALLY BECAME MORE ALERT, RESPONSIVE TO TOUCH/TASK, AND SHOWED IMPROVED SKIN WARMTH, COLOR, AND CAP REFILL. HE WAS RESOSITIONED Q 2 HR TURNS, RECEIVED ORAL CARE Q 4 HR, AND RECEIVIED A BED BATH. SKIN INSPECTED, NO SIGNED OF SKIN BREAKDOWN. HE APPEARS COMFORTABLE WHILE RESTING, NO SIGNED OF DISTRESS. SHOWS SIGNS OF DISCOMFORT WITH RESPOSITIONING, ESPECIALLY WHEN LYING HIM FLAT. HE RETRACTS HIS LEGS, BENDING HIS KNEES. HX OF LOW BACK PAIN. DICUSSION OF POSSIBLE WEAN 08/04/22.
--- NOTE | 2022-08-03 21:26 | NUR ---
ASSUMED CARE ASSUMED CARE AT 1900. P INTUBATED AND SEDATED. AC/VC 16/500/6/35%. RR 16-26. PROPOFOL, AND FENTANYL GTT INFUSING. SEE FLOWSHEET FOR TITRATIONS. CPN AND BICARB GTT INFUSING. BICARB STOPPED AT 2100. PT OPENS EYES TO VERBAL STIMULI AND UNABLE TO TRACK. ABLE TO SQUEEZE HANDS AND MOVE TOES ON COMMAND. PT MINIMALLY NODS HEAD TO QUESTIONS. LUNG SOUNDS COARSE T/O. COPIOUS ORAL SECRETIONS. SR 80-90'S. SBP 150'S. VSS. AFEBRILE. VERY HYPOACTIVE BT. MIDLINE INCISION COVERED WITH ODALYS DRSG C/D/I. JEFF DRAINS TO LLQ AND LUQ. PINK/ORANGE DRAINAGE. OSTOMY RED W/ DARK GREEN LIQUID DRAINAGE. NGT TO LIS. GARG PATENT AND DRAINING TO GRAVITY.
--- NOTE | 2022-08-03 21:56 | NUR ---
PAIN CONTROL PT TURNED TO SIDE W/ ANOTHER RN. PT GRIMACING, TENSE, AND PULLING LEGS UP TO CHEST. PT BREATHING OVER VENT, AND COUGHING. THIS RN TALKED TO DR PA REGARDING PAIN CONTROL. ORDERS RECEIVED.
[2022-08-04 03:50] LABS: Hematocrit 21.2 % (37.0-53.0); Hemoglobin 7.2 g/dL (13.5-17.5); Mean Corpuscular HGB 27.9 pg (26.0-34.0); Mean Corpuscular Volume 82 fL (80-100); Mean Platelet Volume 10.8 fL (9.1-12.4); NRBC ABSOLUTE 0.06 K/mm3 (0.00-0.02); NRBC Auto 0.1 /100 WBC (0.0-0.2); Platelet Count 391 K/mm3 (150-400); RDW Coefficient Variation 16.9 % (11.7-14.2); RDW Standard Deviation 48.5 fL (35.1-46.3); Red Blood Cell Count 2.58 M/mm3 (4.30-5.90); White Blood Cell Count 46.48 K/mm3 (4.00-11.30)
[2022-08-04 03:55] LABS: Base Excess Venous -3.5 mmol/L; Bicarbonate Venous 21.7 mmol/L (24.0-30.0); PCO2 Venous 35.5 mmHg (38-42); pH Blood Venous 7.39 (7.34-7.37)
[2022-08-04 04:34] LABS: Albumin, Blood 2.1 g/dL (3.4-5.0); Albumin/Globulin Ratio 0.8 (0.8-1.8); Bilirubin, Total 0.7 mg/dL (0.1-1.0); Bun/Creatinine Ratio 14.3 (12.0-20.0); Calcium, Blood 8.4 mg/dL (8.5-10.1); Creatinine, Blood 5.23 mg/dL (0.60-1.20); Globulin, Blood 2.6 g/dL (2.2-4.0); Potassium, Blood 3.7 mmol/L (3.5-5.5); Total Protein, Blood 4.7 g/dL (6.4-8.2)
[2022-08-04 04:39] LABS: BAND PERCENT MAN 6 % (0-8); BASOPHILS PERCENT MAN 0 % (0-2); EOSINOPHILS PERCENT MAN 0 % (0-6); LYMPHOCYTES ABSOLUTE MAN 0.46 K/mm3 (0.84-5.20); LYMPHOCYTES PERCENT MAN 1 % (21-46); MONOCYTES ABSOLUTE MAN 0.92 K/mm3 (0.16-1.47); MONOCYTES PERCENT MAN 2 % (4-13); MYELOCYTE ABSOLUTE MAN 0.46 K/mm3 (0.00-0.00); MYELOCYTE PERCENT MAN 1 % (0-0); NEUTROPHILS ABSOLUTE MAN 44.62 K/mm3 (1.96-9.15); SEG NEUTROPHILS PERCENT MAN 90 % (41-73); TOTAL CELLS COUNTED 100
--- NOTE | 2022-08-04 04:52 | NUR ---
SBT PROPOFOL OFF AND FENTANYL EXECUTIVE DIRECTOR OF MARKETING INFUSING. PT ABLE TO FOLLOW COMMANDS AND TRACK NURSE. PT CALM AND COOPERATIVE. SBT STARTED AT 0450. SEE RT NOTE FOR VENT SETTING CHANGES. RR 14-20. TV 450-600.
--- NOTE | 2022-08-04 06:13 | NUR ---
SHIFT SUMMARY NO ACUTE EVENTS T/O NIGHT. PT REMAINS INTUBATED. SPONT PS 5 FIO2 30% RR 11-24 TV 400-550. FENTANYL, AND CPN INFUSING. PROPOFOL OFF FOR SBT. PT ANXIOUS AT TIMES, MOUTHS THE WORD "PLEASE" IN REFERENCE OF GETTING THE ETT OUT. PT CALMS WITH NURSE PRESENCE AND EDUCATION. ABLE TO TRACK NURSE, AND FOLLOW COMMANDS. VSS, HTN AT TIMES. MEDICATED TWICE WITH PRN PAIN MEDICATION. UNABLE TO GET ODALYS WOUND VAC TO SUCTION. DRSG CHANGED AND REINFORCED. JEFF DRSG'S CHANGED THIS SHIFT. NGT TO LIS. GARG IN PLACE AND DRAINING TO GRAVITY. WILL REPORT OFF TO ONCOMING NURSE.
--- NOTE | 2022-08-04 10:46 | NUR ---
EXTUBATION PT TOLERATED PRESSURE SUPPORT OF 5/5, FIO2 30% THROUGHOUT THE MORNING. DR HERNANDEZ AT BEDSIDE TO SEE PT, OK FOR EXTUBATION. PROPOFOL ON STANDBY. PT EXTUBATED BY RT KELLY AT 1035. PT PLACED ON 2L O2 NC, SPO2 >94%. PT WITH GOOD COUGH EFFORT. NGT REMAINS IN PLACE. WILL CONTINUE TO MONITOR.
--- NOTE | 2022-08-04 17:38 | NUR ---
SHIFT SUMMARY PT DID WELL THIS SHIFT. PT HAS REMAINED ALERT AND ORIENTED WHEN AWAKE. PT SLEEPING OF AND ON THROUGHOUT THE AFTERNOON. PT ON 2L O2 NC S/P EXTUBATION INITIALLY. PT TITRATED TO ROOM AIR. VITAL SIGNS STABLE. NGT REMAINS IN PLACE TO LIS WITH LARGE AMOUNT OF BILE OUTPUT NOTED. CENTRAL LINE TO RIJ REMAINS IN PLACE WITH NS INFUSING TKO, CPN 73 ML/HR, AND FENTANYL STEREOPTIC PROJECTION TOPOGRAPHER. GARG REMAINS IN PLACE WITH YELLOW URINE OUTPUT NOTED. ILLEOSTOMY REMAINS C/D/I WITH DARK BROWN LIQUID OUTPUT NOTED, STOMA APPEARS BEEFY RED. MIDLINE INCISION UNCHANGED WITH DARNELL INTACT AND NEW ABD DRESSING PLACED THIS SHIFT. JEFF DRAINS X2 TO LUQ AND LLQ REMAIN INPLACE WITH SEROSANGUINEOUS DRAINAGE NOTED. WILL CONTINUE TO MONITOR AND REPORT OFF TO ONCOMING RN.
[2022-08-05 04:05] LABS: Hematocrit 22.7 % (37.0-53.0); Hemoglobin 7.4 g/dL (13.5-17.5); Mean Corpuscular HGB Conc 32.6 g/dL (31.5-36.5); Mean Corpuscular Volume 83 fL (80-100); Mean Platelet Volume 10.6 fL (9.1-12.4); NRBC ABSOLUTE 0.25 K/mm3 (0.00-0.02); NRBC Auto 0.9 /100 WBC (0.0-0.2); Platelet Count 505 K/mm3 (150-400); RDW Coefficient Variation 16.9 % (11.7-14.2); RDW Standard Deviation 49.1 fL (35.1-46.3); Red Blood Cell Count 2.74 M/mm3 (4.30-5.90); White Blood Cell Count 26.79 K/mm3 (4.00-11.30)
[2022-08-05 04:25] LABS: Albumin, Blood 2.2 g/dL (3.4-5.0); Albumin/Globulin Ratio 0.7 (0.8-1.8); Bilirubin, Total 0.9 mg/dL (0.1-1.0); Bun/Creatinine Ratio 14.4 (12.0-20.0); Calcium, Blood 8.6 mg/dL (8.5-10.1); Creatinine, Blood 5.5 mg/dL (0.60-1.20); Magnesium, Blood 2.2 mg/dL (1.6-2.4); Phosphorus, Blood 2.3 mg/dL (2.5-4.9); Potassium, Blood 3.8 mmol/L (3.5-5.5); Total Protein, Blood 5.2 g/dL (6.4-8.2)
[2022-08-05 04:57] LABS: BAND PERCENT MAN 9 % (0-8); BASOPHILS PERCENT MAN 3 % (0-2); EOSINOPHILS PERCENT MAN 0 % (0-6); LYMPHOCYTES ABSOLUTE MAN 1.07 K/mm3 (0.84-5.20); LYMPHOCYTES PERCENT MAN 4 % (21-46); MONOCYTES ABSOLUTE MAN 2.67 K/mm3 (0.16-1.47); MONOCYTES PERCENT MAN 10 % (4-13); MYELOCYTE PERCENT MAN 3 % (0-0); NEUTROPHILS ABSOLUTE MAN 21.43 K/mm3 (1.96-9.15); SEG NEUTROPHILS PERCENT MAN 71 % (41-73); TOTAL CELLS COUNTED 100
--- NOTE | 2022-08-05 06:44 | NUR ---
PATIENT AOX4 BUT FORGETFUL. SR WITH STABLE BP. 2L NC WITH CLEAR LUNG SOUNDS. NGT TO LIS. OSTOMY HAVING LARGE AMOUNTS OF DARK BROWN LIQUID OUTPUT. GARG IN PLACE.
--- NOTE | 2022-08-05 13:48 | NUR ---
REASSESSMENT PT HAS BEEN RESTING WITH EYES CLOSED WHEN LEFT ALONE. WAKES EASILY TO VOICE AND IS ALERT AND ORIENTED. LUNGS ARE CLEAR, DIM IN THE BASES. OXYGEN TITRATED OFF AND PT IS MAINTAINING SPO2 ABOVE 90%. SR WITH PAC, BP STABLE. JEFF DRAINS WITH SS OUTPUT. ILEOSTOMY WITH DARK FLUID OUTPUT. BOWEL TONES ACTIVE. NG WAS CLAMPED ABOUT [address] KWONG GAVE OK FOR NG TO COME OUT AT NOON IF PT HAD NO NAUSEA. PT DENIED ANY NAUSEA SO NG PULLED WITHOUT ANY COMPLICATIONS. DRESSING C/D/I. PT GOT UP TO THE CHAIR WITH MODERATE ASSIST, BUT REQUIRED LOTS OF MOTIVATION TO DO SO.
--- NOTE | 2022-08-05 16:47 | NUR ---
SHIFT SUMMARY PT GOT UP TO THE CHAIR TODAY AND STAYED UP FOR ABOUT 3 HOURS. HE REMAINS ALERT AND ORIENTED. HE DID BETTER USING THE CNC WOOD LATHE OPERATOR FOR PAIN CONTROL TODAY. LUNGS ARE CLEAR, RA. OCCASIONALLY COUGHS UP THICK, WHITE MUCOUS. SR THIS AFTERNOON, BP STABLE. NO NAUSEA SINCE NGT REMOVED. ILEOSTOMY WITH DARK GREEN LIQUID OUTPUT. 2 JEFF DRAINS WITH SS DRAINAGE. ABD DRG C/D/I. BOWEL TONES HYPOACTIVE. GARG WITH GOOD OUTPUT, SEE I/O.
[2022-08-06 04:54] LABS: Hematocrit 25.3 % (37.0-53.0); Hemoglobin 8.2 g/dL (13.5-17.5); Mean Corpuscular HGB 27.1 pg (26.0-34.0); Mean Corpuscular HGB Conc 32.4 g/dL (31.5-36.5); Mean Corpuscular Volume 84 fL (80-100); Mean Platelet Volume 10.6 fL (9.1-12.4); NRBC ABSOLUTE 0.28 K/mm3 (0.00-0.02); NRBC Auto 1.1 /100 WBC (0.0-0.2); Platelet Count 672 K/mm3 (150-400); RDW Coefficient Variation 17.5 % (11.7-14.2); RDW Standard Deviation 49.8 fL (35.1-46.3); Red Blood Cell Count 3.03 M/mm3 (4.30-5.90); White Blood Cell Count 26.42 K/mm3 (4.00-11.30)
[2022-08-06 05:14] LABS: Albumin, Blood 2.1 g/dL (3.4-5.0); Albumin/Globulin Ratio 0.6 (0.8-1.8); Bilirubin, Total 0.8 mg/dL (0.1-1.0); Bun/Creatinine Ratio 17.2 (12.0-20.0); Calcium, Blood 8.9 mg/dL (8.5-10.1); Creatinine, Blood 4.99 mg/dL (0.60-1.20); Globulin, Blood 3.5 g/dL (2.2-4.0); Magnesium, Blood 2.2 mg/dL (1.6-2.4); Phosphorus, Blood 2.1 mg/dL (2.5-4.9); Potassium, Blood 3.6 mmol/L (3.5-5.5); Total Protein, Blood 5.6 g/dL (6.4-8.2)
[2022-08-06 05:31] LABS: BAND PERCENT MAN 12 % (0-8); BASOPHILS PERCENT MAN 0 % (0-2); EOSINOPHILS ABSOLUTE MAN 0.79 K/mm3 (0.00-0.68); EOSINOPHILS PERCENT MAN 3 % (0-6); LYMPHOCYTES ABSOLUTE MAN 3.43 K/mm3 (0.84-5.20); LYMPHOCYTES PERCENT MAN 13 % (21-46); METAMYELOCYTE ABSOLUTE MAN 1.05 K/mm3 (0.00-0.00); METAMYELOCYTE PERCENT MAN 4 % (0-0); MONOCYTES ABSOLUTE MAN 2.64 K/mm3 (0.16-1.47); MONOCYTES PERCENT MAN 10 % (4-13); MYELOCYTE ABSOLUTE MAN 1.05 K/mm3 (0.00-0.00); MYELOCYTE PERCENT MAN 4 % (0-0); NEUTROPHILS ABSOLUTE MAN 17.43 K/mm3 (1.96-9.15); SEG NEUTROPHILS PERCENT MAN 54 % (41-73); TOTAL CELLS COUNTED 100
--- NOTE | 2022-08-06 06:23 | NUR ---
PATIENT AOX4, FOLLOWS COMMANDS. SR WITH STABLE BP. ROOM AIR. NPO W/O NAUSEA OR VOMITING OVERNIGHT. OSTOMY PRODUCING BROWN LIQUID. GARG IN PLACE WITH ADEQUATE URINE OUTPUT. FENTANYL PADDED BOX SEWER INFUSING FOR PAIN CONTROL.
--- NOTE | 2022-08-06 11:53 | NUR ---
TRANSFER PT HAS BEEN SITTING UP IN THE CHAIR AND DRINKING LOTS OF LIQUIDS. DR. KWONG OK'D FULL LIQUIDS AND PT HAS REQUESTED SOMETHING TO DRINK SOONA S HE FINISHES SOMETHING DESPITE WARNINGS TO GO SLOW. OSTOMY APPLIANCE CHANGED THE TOP WAS STARTING TO PEEL OFF. MIDLINE DRESSING CHANGED IT HAD SOME SEROUS DRAINAGE AT THE BOTTOM. DR. KWONG GAVE ORDERS TO STOP CONTINUOUS RATE ON INVENTORY CONTROL/SHIPPING RECEIVING AND JSUT KEEP THE INVENTORY CONTROL/SHIPPING RECEIVING RATE, ADJUSTMENTS MADE. DR. KWONG AND DAVID GAVE OK FOR PT TO TRANSFER TO SURGICAL FLOOR. PT TRANSFERRED TO 226 VIA . REPORT GIVEN TO REAL PEREZ. PT TOELRATED TRANSFER WELL.
--- NOTE | 2022-08-06 11:58 | NUR ---
ICU 10 TO 226 TRANSFER PT ARRIVED TO THE FLOOR VIA WC FROM ICU AND WAS TAKEN INTO HIS ROOM 226, PT ABLE TO GET UP AND TRANSFER FROM HIS WC TO THE RECLINER THOUGH HE WAS RELUCTANT TO GO TO THE CHAIR INITIALLY ASKING TO GO TO THE BED. PT EDUCATED THAT LUNCH WOULD BE ARRIVING SOON AND WE WOULD LIKE HIM TO BE IN THE CHAIR FOR LUNCH AND HE WAS AGREEABLE TO THIS. PT REQUIRED MINIMAL 1 PERSON ASSISTANCE DURING HIS TRANSFER. HOLE DIGGER AND THIS RN LOOKED AT HIS INCISIONS TOGETHER WELL HIS OSTOMY WHICH HAD A LARGE AMOUNT OF GAS AND LIQUID STOOL IN IT AND HIS 2 JEFF DRAINS. WHILE GETTING A SECOND PUMP THE HOLE DIGGER EMPTIED THE OSTOMY AND THEN WE CHANGED OVER THE IV LINES FROM THE ICU TRIPLE PUMP TO OUR FLOOR PUMPS. PT COMFORTABLE IN HIS CHAIR AT THIS TIME AWAITING LUNCH. THE DRESSING ON HIS CENTRAL LINE APPEARED TO BE PULLING OFF AT THE TOP AND WILL BE REINFORCED TO KEEP IT SECURE. PER HOLE DIGGER REPORT, THIS HAS BEEN HAPPENING ALL MORNING. VISITORS WHO HAD ACCOMPANIED THE PATIETN FROM ICU WERE ALLOWED TO COME I GAL FIELDS. NO OTHER NEEDS AT THIS TIME. WILL SHAMIKA
[2022-08-07 04:16] LABS: Hematocrit 28.2 % (37.0-53.0); Hemoglobin 9.4 g/dL (13.5-17.5); Mean Corpuscular HGB 27.2 pg (26.0-34.0); Mean Corpuscular HGB Conc 33.3 g/dL (31.5-36.5); Mean Corpuscular Volume 82 fL (80-100); Mean Platelet Volume 10.5 fL (9.1-12.4); NRBC ABSOLUTE 0.29 K/mm3 (0.00-0.02); NRBC Auto 0.6 /100 WBC (0.0-0.2); Platelet Count 812 K/mm3 (150-400); RDW Coefficient Variation 17.7 % (11.7-14.2); Red Blood Cell Count 3.45 M/mm3 (4.30-5.90); White Blood Cell Count 45.35 K/mm3 (4.00-11.30)
[2022-08-07 04:36] LABS: Magnesium, Blood 2.1 mg/dL (1.6-2.4)
[2022-08-07 04:39] LABS: Bun/Creatinine Ratio 20.1 (12.0-20.0); Calcium, Blood 9.5 mg/dL (8.5-10.1); Creatinine, Blood 4.18 mg/dL (0.60-1.20); Phosphorus, Blood 1.4 mg/dL (2.5-4.9)
[2022-08-07 05:58] LABS: BAND PERCENT MAN 2 % (0-8); BASOPHILS PERCENT MAN 0 % (0-2); EOSINOPHILS PERCENT MAN 0 % (0-6); LYMPHOCYTES PERCENT MAN 2 % (21-46); METAMYELOCYTE ABSOLUTE MAN 0.45 K/mm3 (0.00-0.00); METAMYELOCYTE PERCENT MAN 1 % (0-0); MONOCYTES ABSOLUTE MAN 2.26 K/mm3 (0.16-1.47); MONOCYTES PERCENT MAN 5 % (4-13); MYELOCYTE ABSOLUTE MAN 1.36 K/mm3 (0.00-0.00); MYELOCYTE PERCENT MAN 3 % (0-0); NEUTROPHILS ABSOLUTE MAN 40.36 K/mm3 (1.96-9.15); SEG NEUTROPHILS PERCENT MAN 87 % (41-73); TOTAL CELLS COUNTED 100
[2022-08-07 08:24] LABS: Albumin, Blood 2.3 g/dL (3.4-5.0); Anion Gap 8 mmol/L (6-16); Blood Urea Nitrogen 86 mg/dL (8-24); Bun/Creatinine Ratio 20.8 (12.0-20.0); CO2, Blood 21 mmol/L (21-32); Calcium, Blood 9.6 mg/dL (8.5-10.1); Chloride, Blood 114 mmol/L (98-108); Creatinine, Blood 4.13 mg/dL (0.60-1.20); Glomerular Filtration Rate 16 (60-); Glucose, Blood 132 mg/dL (70-99); Phosphorus, Blood 1.6 mg/dL (2.5-4.9); Potassium, Blood 4.1 mmol/L (3.5-5.5); Sodium, Blood 143 mmol/L (136-145)
--- NOTE | 2022-08-07 08:38 | NUR ---
SHIFT SUMMARY PT AOX4. ICU TRANSFER YESTERDAY. S/P R HEMICOLECTOMY. DX WITH SBO. ILEOSTOMY ON R SIDE, DRAINING GREEN LIQ STOOL. STOMA APPEARS WNL. OSTOMY APPLIANCE CHANGED TWICE T/O THE SHIFT. REG APPLIANCE HAD BEEN LEAKING DUE TO THE AMT OF DRAINAGE. ATTEMPT TO ATTACH OSTOMY BAG TO RECTAL TUBE BUT IT WAS STEAL LEAKING. COUPLE FULL BED CHANGE BEFORE MIDNIGHT. REINFORCE AND ATTACHED TO OSTOMY TO SUCTION WITH SUCCESS. TOTAL OF 900MLS OF DRAINAGE SINCE MIDNIGHT. PT REPORTS PAIN, PAIN MANAGED WITH FENTANYL DISC INSPECTOR. CPN. CENTRAL LINE, R NECK. IV FLUIDS INFUSING. GARG INTACT DRAINING OFF FLOOR. 2 JEFF DRAIN ON LEFT SIDE. TOP JEFF DRAINING 80MLS OVERNIGHT. BUTTOM JEFF WITH MINIMAL OUTPUT. CALL LIGHT WITHIN REACH. REPORT GIVEN TO SERA NOBLE.
[2022-08-07 13:14] LABS: Hematocrit 28.6 % (37.0-53.0); Hemoglobin 9.3 g/dL (13.5-17.5); Mean Corpuscular HGB 27.4 pg (26.0-34.0); Mean Corpuscular HGB Conc 32.5 g/dL (31.5-36.5); Mean Corpuscular Volume 84 fL (80-100); Mean Platelet Volume 10.8 fL (9.1-12.4); NRBC ABSOLUTE 0.22 K/mm3 (0.00-0.02); NRBC Auto 0.6 /100 WBC (0.0-0.2); Platelet Count 880 K/mm3 (150-400); RDW Coefficient Variation 17.9 % (11.7-14.2); RDW Standard Deviation 51.8 fL (35.1-46.3); White Blood Cell Count 39.85 K/mm3 (4.00-11.30)
[2022-08-07 13:38] LABS: BAND PERCENT MAN 2 % (0-8); BASOPHILS PERCENT MAN 0 % (0-2); EOSINOPHILS PERCENT MAN 0 % (0-6); METAMYELOCYTE ABSOLUTE MAN 1.19 K/mm3 (0.00-0.00); METAMYELOCYTE PERCENT MAN 3 % (0-0); MONOCYTES ABSOLUTE MAN 2.39 K/mm3 (0.16-1.47); MONOCYTES PERCENT MAN 6 % (4-13); MYELOCYTE ABSOLUTE MAN 0.39 K/mm3 (0.00-0.00); MYELOCYTE PERCENT MAN 1 % (0-0); NEUTROPHILS ABSOLUTE MAN 35.86 K/mm3 (1.96-9.15); SEG NEUTROPHILS PERCENT MAN 88 % (41-73); TOTAL CELLS COUNTED 100
--- NOTE | 2022-08-07 19:25 | NUR ---
SHIFT SUMMARY PATIENT ALERT AND ORIENTED WHEN AWAKE. WEAK AND NAPPED FREQUENTLY. REPORTED PAIN SEVERE THROUGHOUT SHIFT 02/01. USING FENTANYL FIG BAR MACHINE OPERATOR BUT NOT MAXING THE ALLOWED AMOUNT. ASKED FOR IV MORPHINE BUT EDUCATED TO USE FIG BAR MACHINE OPERATOR BUTTON MORE OFTEN TO MANAGE PAIN. COPIOUS ILEOSTOMY OUTPUT THIS SHIFT. GARG PATENT AND DRAINING. CPN RUNNING. TELE NSR. JEFF DRAINS WITH SEROUS OUTPUT. OTHERWISE VSS. REPORT GIVEN TO BREASTER RN.
[2022-08-08 04:32] LABS: Hematocrit 27.2 % (37.0-53.0); Hemoglobin 8.9 g/dL (13.5-17.5); Mean Corpuscular HGB 27.1 pg (26.0-34.0); Mean Corpuscular HGB Conc 32.7 g/dL (31.5-36.5); Mean Corpuscular Volume 83 fL (80-100); Mean Platelet Volume 10.6 fL (9.1-12.4); NRBC ABSOLUTE 0.16 K/mm3 (0.00-0.02); NRBC Auto 0.4 /100 WBC (0.0-0.2); Platelet Count 889 K/mm3 (150-400); RDW Coefficient Variation 17.6 % (11.7-14.2); RDW Standard Deviation 51.4 fL (35.1-46.3); Red Blood Cell Count 3.28 M/mm3 (4.30-5.90); White Blood Cell Count 39.94 K/mm3 (4.00-11.30)
[2022-08-08 04:47] LABS: Albumin, Blood 2.1 g/dL (3.4-5.0); Anion Gap 7 mmol/L (6-16); Blood Urea Nitrogen 81 mg/dL (8-24); Bun/Creatinine Ratio 19.1 (12.0-20.0); CO2, Blood 21 mmol/L (21-32); Calcium, Blood 9.2 mg/dL (8.5-10.1); Chloride, Blood 106 mmol/L (98-108); Creatinine, Blood 4.24 mg/dL (0.60-1.20); Glomerular Filtration Rate 15 (60-); Glucose, Blood 137 mg/dL (70-99); Phosphorus, Blood 2.9 mg/dL (2.5-4.9); Potassium, Blood 4.2 mmol/L (3.5-5.5); Sodium, Blood 134 mmol/L (136-145)
--- NOTE | 2022-08-08 05:00 | NUR ---
SHIFT SUMMARY ILEOSTOMY WITH LARGE AMOUNTS OF OUTPUT THIS SHIFT, BUT PT ALSO DRINKING LARGE AMOUNTS OF PO FLUIDS. ENCOURAGED TO SLOW DOWN ON FLUID INTAKE. ENCOURAGING PT TO USE FENTANYL HOSPITAL WELLNESS COORDINATOR. CPN INFUSING PER ORDERS. GARG WITH DARK YELLOW URINE. REMAINS IN SR PER TELE. PT REPORTS CONSTANT NAUSEA, BUT NO EMESIS. BTS HYPERACTIVE. DRESSING TO ABD REMAINS UNCHANGED AND CDI. JEFF DRAINS WITH SS DRAINAGE. PT NOT USING CALL LIGHT APPROPRIATELY, BUT ENCOURAGED TO DO SO. WILL CONT TO REINFORCE.
--- NOTE | 2022-08-08 14:32 | NUR ---
Spiritual Care Consult Ordered by Dr. Mcgowan Pt. is awake in his recliner and welcomes my visit. Pt. is unsettled about the gripping pain in his abdomen. With empathy and a calming presence rapport is established. Pt. displays evidence of trust. Pt. verbalizes that he has cried out to God for relief. Seek to normalize the Pt. experience and motivate the Pt. to do his therapies as they will help him be able to discharge. Prayed with Pt. Pt. verbalized genuine gratitude for the spiritual care visit.
[2022-08-08 18:58] LABS: Albumin, Blood 2.4 g/dL (3.4-5.0); Anion Gap 7 mmol/L (6-16); Blood Urea Nitrogen 104 mg/dL (8-24); Bun/Creatinine Ratio 18.9 (12.0-20.0); CO2, Blood 21 mmol/L (21-32); Calcium, Blood 10.2 mg/dL (8.5-10.1); Chloride, Blood 105 mmol/L (98-108); Creatinine, Blood 5.49 mg/dL (0.60-1.20); Glomerular Filtration Rate 11 (60-); Glucose, Blood 132 mg/dL (70-99); Phosphorus, Blood 4.3 mg/dL (2.5-4.9); Potassium, Blood 4.2 mmol/L (3.5-5.5); Sodium, Blood 133 mmol/L (136-145)
--- NOTE | 2022-08-08 19:19 | NUR ---
SHIFT SUMMARY PATIENT UP TO RECLINER MOST OF DAY. SBA WITH FWW, MANAGEMENT OF LINES. CONTINUED MANAGEMENT OF COPIOUS ILEOSTOMY OUTPUT. GARG PATENT. CPN INFUSING AND FENTANYL COAL HANDLING SUPERVISOR. STARTED TID BANANA FLAKES, REGULAR DIET, AND PO OXYCODONE. SEEN BY PT AND OT. MIDLINE DRESSING CHANGED THIS SHIFT.
--- NOTE | 2022-08-09 05:15 | NUR ---
SHIFT SUMMARY CONTINUES TO HAVE LARGE AMOUNTS OF LIQUID BROWN OUTPUT FROM ILEOSTOMY. LESS THAN PREVIOUS NIGHT. SOME SOLID PARTICLES NOTED IN OUTPUT. MEDIPORE DRESSING TO MIDLINE ABD REMAINS CDI. X2 JEFF DRAINS WITH SMALL AMOUNT OF SS DRAINAGE. FENTANYL BARBER STYLIST + 1 ROXICODONE FOR PAIN MANAGEMENT. DENIES N/V. GARG CATH DC'D THIS AM. CPN INFUSING PER ORDERS. CALL LIGHT WITHIN REACH.
[2022-08-09 08:14] LABS: Hematocrit 25.2 % (37.0-53.0); Hemoglobin 8.4 g/dL (13.5-17.5); Mean Corpuscular HGB 27.7 pg (26.0-34.0); Mean Corpuscular HGB Conc 33.3 g/dL (31.5-36.5); Mean Corpuscular Volume 83 fL (80-100); Mean Platelet Volume 10.3 fL (9.1-12.4); NRBC ABSOLUTE 0.08 K/mm3 (0.00-0.02); NRBC Auto 0.2 /100 WBC (0.0-0.2); Platelet Count 987 K/mm3 (150-400); RDW Coefficient Variation 17.5 % (11.7-14.2); RDW Standard Deviation 52.1 fL (35.1-46.3); Red Blood Cell Count 3.03 M/mm3 (4.30-5.90); White Blood Cell Count 40.83 K/mm3 (4.00-11.30)
[2022-08-09 08:32] LABS: Bun/Creatinine Ratio 18.2 (12.0-20.0); Calcium, Blood 9.2 mg/dL (8.5-10.1); Creatinine, Blood 6.25 mg/dL (0.60-1.20); Magnesium, Blood 2.2 mg/dL (1.6-2.4); Potassium, Blood 4.4 mmol/L (3.5-5.5)
--- NOTE | 2022-08-09 09:38 | NUR ---
0735- NOTIFIED DR. HOFFMAN OF LOW BP AND PATIENT REPORTS SOME LIGHTHEADED FEELING. ORDERS RECIEVED FOR MIDODRINE. PLACED BP IN SUPINE POSITION. 0838- NEW SHARP PAIN IN ABDOMEN, TENDER TO TOUCH. DR HOFFMAN PLACED ORDERS FOR LACTIC AND BLOOD CULTURES. 0900- DR. HOFFMAN IN ROOM, ORDERS RECIEVED FOR STAT ABD CT AND TRANSFER TO PCU. INCREASED PAIN WITH SLIGHT PALPATION. 0930-LABS DRAWN, AWAITING CT, WILL TRANSFER TO ICU [address] SCAN. PT CONTINUES TO LAY IN BED. MINIMAL MOANING. WILL ANSWER IN SHORT RESPONSES, DENIES SHORTNESS OF BREATH. BOWEL SOUNDS HYPERACTIVE. ILEOSTOMY CONTINUING TO HAVE LARGE AMOUNTS OF LIQUID BROWN OUTPUT. REMAINS ORIENTED X4, USING CALL LIGHT APPROPRIATLY. 50ML ON BLADDER SCAN.
--- NOTE | 2022-08-09 10:05 | NUR ---
PT TAKEN TO ICU [address] SCAN. BELONGINGS SENT WITH PATIENT. BEDSIDE REPORT GIVEN TO REAL JOHN IN ICU.
[2022-08-09 10:39] LABS: BAND PERCENT MAN 4 % (0-8); BASOPHILS PERCENT MAN 1 % (0-2); EOSINOPHILS ABSOLUTE MAN 1.22 K/mm3 (0.00-0.68); EOSINOPHILS PERCENT MAN 3 % (0-6); LYMPHOCYTES ABSOLUTE MAN 4.49 K/mm3 (0.84-5.20); LYMPHOCYTES PERCENT MAN 11 % (21-46); METAMYELOCYTE ABSOLUTE MAN 0.81 K/mm3 (0.00-0.00); METAMYELOCYTE PERCENT MAN 2 % (0-0); MONOCYTES ABSOLUTE MAN 3.26 K/mm3 (0.16-1.47); MONOCYTES PERCENT MAN 8 % (4-13); NEUTROPHILS ABSOLUTE MAN 30.62 K/mm3 (1.96-9.15); SEG NEUTROPHILS PERCENT MAN 71 % (41-73); TOTAL CELLS COUNTED 100
--- NOTE | 2022-08-09 10:40 | NUR ---
MOVED TO ICU PATIENT MOVED TO ICU FROM SURG. DUE TO LOW BP AND UNCONTROLLED PAIN. HE WENT TO CT FOR CT OF ABD THEN TO ICU 10. PAIN 02/01 RESTARTED THE FENT. NEW CAR DRIVER FOR HIM. TPN HOOKED BACK UP TO RIGHT IJ QUAD LUMEN CENTRAL LINE. LINES FLUSHED EASILY AND BLOOD RETURN IS GOOD FROM ALL PORTS. PATIENT HELPS STAFF TURN SIDE TO SIDE IN BED HOWEVER DOES COMPLAIN OF OVERALL ABD PAIN. HYPERBOWEL TONES TO LEFT AND RIGHT UPPER QUAD. ILEOSTOMY HAS NOVA LIQUID STOOL FROM IT. ALREADY DUMPED 100ML THIS AM WITH PINEAPPLE CHUNCKS IN IT. PATIENT WANTING SPRITE.. NPO TILL FURTHER NOTICE. DR HOFFMAN TO BEDSIDE. PATIENT MOANS INTERMITTENTLY BUT IS OTHERWISE NOT TO ACTIVE IN BED. VS OTHERWISE STABLE BUT SOFT BP. MAP STILL GREATER THAN 65 AT THIS TIME. WILL GIVE NEPHROLOGY A CALL AND DR COHEN.
[2022-08-09 12:59] LABS: Bun/Creatinine Ratio 18.1 (12.0-20.0); Calcium, Blood 9.6 mg/dL (8.5-10.1); Creatinine, Blood 6.91 mg/dL (0.60-1.20); Potassium, Blood 4.5 mmol/L (3.5-5.5)
--- NOTE | 2022-08-09 13:51 | NUR ---
UPDATE PATIENT IS USING HIS FENT DINKEY ENGINE FIRER FOR PAIN RELIEF. WHEN NOT MOVING IN BED HIS PAIN IS TOLERATABLE AND HE REST SOME. HE COMPLAINS OF WANTING FOOD BUT FOR NOW HE IS NPO. PATIENT WAS STARTED ON LEVOPHED AT 2MCG/MIN FOR HYPOTENSION. IV FLUIDS WERE INCREASED TO 200ML/HR WELL. NEW LABS TO BE DRAWN AT [address] BEAULIEU WITH RESULTS. PT HAD A CHLORHEXIDINE BATH.
[2022-08-09 14:49] LABS: C DIFFICILE DNA NEGATIVE (Negative)
--- NOTE | 2022-08-09 17:38 | NUR ---
END OF SHIFT NOTE PATIENT IS ALERT THIS EVENING. HE IS ON TPN, NS 200/HR, LEVOPHED ON STANDBY FROM 1 MCG, AND PRN ANTBIOTICS. PATIENT WANTING MORE INTACT BUT WE ARE TO GO SLOW.... AND PATIENT WANTS TO EAT QUICKLY.. CONCERNED THAT MAY BE ONE REASON FOR HIS ABD PAIN..ASSESSING IT... ILEOSTOMY STILL PUTTING OUT LOOSE WATERY STOOL DUMPING Q 2 HRS ABOUT 100-300ML EACH TIME. NOTHING FROM THE TWO JEFF DRAINS FROM HIS MID AND LEFT ABD AREA. DARNELL STILL INTACT MIDLINE WITH DRESSING OFF AND OPEN TO AIR NOW. PATIENT HAS VOIDED 5 TIMES TODAY EACH TIME 25-100ML OF URINE OUT EACH TIME ONLY. WILL ASSESS BP FREQ. OTHER VS STABLE AT THIS TIME. NO ACUTE NEEDS CURRENTLY. WILL GIVE REPORT TO NEXT SHIFT
--- NOTE | 2022-08-09 22:54 | NUR ---
ASSUMED CARE AT 1900 PATIENT IS ALERT AND ORIENTED x4. 02 SATS 100% ON RA, DENIES SOB. HR SR 80s, BP STABLE WITH NS INF AT 200 MLS/HR, LEVOPHED REMAINS ON SB. JEFF DRAINS WITH MINIMAL SEROSANGUINOUS OUTPUT. OSTOMY WITH LIQUID BROWN STOOL. ABDOMINAL WOUND WNL. PATIENT USING FENTANYL PLASTIC JOINT MAKER. USES URINAL. REPOSITIONED Q2 HOURS. CALL LIGHT IN REACH
[2022-08-10 03:28] LABS: Hematocrit 24.1 % (37.0-53.0); Hemoglobin 7.8 g/dL (13.5-17.5); Mean Corpuscular HGB 26.7 pg (26.0-34.0); Mean Corpuscular HGB Conc 32.4 g/dL (31.5-36.5); Mean Corpuscular Volume 83 fL (80-100); Mean Platelet Volume 10.1 fL (9.1-12.4); NRBC ABSOLUTE 0.05 K/mm3 (0.00-0.02); NRBC Auto 0.2 /100 WBC (0.0-0.2); RDW Coefficient Variation 17.5 % (11.7-14.2); RDW Standard Deviation 51.3 fL (35.1-46.3); Red Blood Cell Count 2.92 M/mm3 (4.30-5.90); White Blood Cell Count 31.36 K/mm3 (4.00-11.30)
[2022-08-10 03:45] LABS: Anion Gap 5 mmol/L (6-16); Blood Urea Nitrogen 129 mg/dL (8-24); Bun/Creatinine Ratio 20.9 (12.0-20.0); CO2, Blood 21 mmol/L (21-32); Calcium, Blood 8.7 mg/dL (8.5-10.1); Chloride, Blood 107 mmol/L (98-108); Creatinine, Blood 6.18 mg/dL (0.60-1.20); Glomerular Filtration Rate 10 (60-); Glucose, Blood 118 mg/dL (70-99); Potassium, Blood 4.8 mmol/L (3.5-5.5); Sodium, Blood 133 mmol/L (136-145); Triglycerides 116 mg/dL (30-160)
[2022-08-10 05:18] LABS: Platelet Count 1029 K/mm3 (150-400)
--- NOTE | 2022-08-10 05:30 | NUR ---
SHIFT SUMMARY PATIENT IS ALERT AND ORIENTED X4. 02 SATS 99% ON RA. LS CLEAR TO DIMINISHED, STRONG COUGH. HR SR 78, BP STABLE. JEFF DRAINS WITH MINIMAL SEROSANGUINOUS OUTPUT X2. ILEOSTOMY HAS LIQUID BROWN OUTPUT. MID ABDOMINAL WOUND WNL, OPEN TO AIR. PATIENT USES URINAL. TPN INSUFINS. PATIENT USES CARDIOLOGY ASSOCIATE FENTANYL FOR PAIN MANAGEMENT. REPOSITONED Q2 HOURS. CALL LIGHT IN REACH.
[2022-08-10 05:45] LABS: BAND PERCENT MAN 1 % (0-8); BASOPHILS PERCENT MAN 0 % (0-2); EOSINOPHILS ABSOLUTE MAN 0.31 K/mm3 (0.00-0.68); EOSINOPHILS PERCENT MAN 1 % (0-6); LYMPHOCYTES ABSOLUTE MAN 2.19 K/mm3 (0.84-5.20); LYMPHOCYTES PERCENT MAN 7 % (21-46); MONOCYTES ABSOLUTE MAN 2.82 K/mm3 (0.16-1.47); MONOCYTES PERCENT MAN 9 % (4-13); MYELOCYTE ABSOLUTE MAN 0.62 K/mm3 (0.00-0.00); MYELOCYTE PERCENT MAN 2 % (0-0); SEG NEUTROPHILS PERCENT MAN 80 % (41-73); TOTAL CELLS COUNTED 100
--- NOTE | 2022-08-10 09:04 | NUR ---
ASSUMPTION OF CARE Assumed care for patient at 0700 by night RN with REAL Moses. Patient sleeping but easily rousable to verbal stimuli. Patients pain controlled effectively by fentanyl CIVIL DRAFTING TECHNICIAN pump. Patients stoma was not sealed completely, small amount of leakage noted around colostomy appliance, plan to change compliance. Patient has two JEFF drains, wnl with a small amount of serosanguineous fluids. Patient is up to chair with OT and tolerating well.
--- NOTE | 2022-08-10 17:44 | NUR ---
Shift Summary No significant changes during shift, all vital signs stable. Patient has been cooperative with staff, up out of bed to chair twice. Pain effectively managed with KEG RAISER, and PRN oxycodone. Poorly tolerating clear liquid diet due to speed of consumption causing abdominal pain. Patient encouraged to take slow small sips. Approximately 1100mls of output from ileostomy appliance. Drainage remains loose/liquid, slightly thickened compared to this morning. Ileostomy appliance changed during this shift, new appliance CDI. Minimal output from JEFF drains. Adequate urine output via voiding through urinal. REAL Moses placed PICC to BAY and removed central line to RIJ. Late this shift new small/moderate serosanguineous drainage noted from midline abdominal incision. Called placed by CLIFFORD NOBLE to DR. Osborne, instructed to continue monitor and call with any significant changes.
--- NOTE | 2022-08-10 20:00 | NUR ---
ASSUMED CARE OF PT AT 1900. REPORT RECEIVED. PT PRESENTS IN RECLINER CHAIR. GLASS EMBOSSER WITH CONTROLLER WITHIN REACH. CALL LIGHT WITHIN REACH. ILEOSTOMY INTACT TO LOOSE BROWN STOOL. JEFF COMPRESSED. SEROUS DRAINAGE NOTED. WILL REVIEW CHART AND PLAN OF CARE FOR THIS PT.
--- NOTE | 2022-08-11 01:52 | NUR ---
ASSISTED PT STAND AND TRANSFER BACK TO BED FROM RECLINER CHAIR. PT NEEDS COACHING TO MAKE TRANSFER. HE ASKS WHERE HIS IS AT THIS TIME. EXPLAINED TO PT THAT IT WAS AFTER 1 IN THE AM AND SHE WOULD PROBABLY AT HOME. PT HAS MULTIPLE COMPLAINTS THIS EVENING. HAVE MEDICATED PT WITH OXYCODONE AND ENCOURAGED USAGE OF CONE FORMER TO COVER HIS PAIN. PT COMPLAINS OF BEING HUNGRY AND WANTING FOOD. DID EXPLAIN THAT HE WAS ON A CLEAR LIQUID DIET AND WHAT WAS AVAILABLE TO HIM. COMPLAINS THAT HE IS NOT ABLE TO SLEEP AND THEN REQUESTS COFFEE. SAYS THIS WOULD BE TO WARM HIMSELF. ROOM THERMOSTAT ON FULL. ROOM TEMPERATURE 75-76. MULTIPLE WARM BLANKETS IN USE FOR HIM. ADDRESSED THE CAFFEINE OF COFFEE, AND THAT FACT THAT HE COMPLAINED HE WAS NOT ABLE TO SLEEP. DID OFFER A LOW CAFFEINE TEA. PT AGREES. WHEN COMING BACK TO THE ROOM, PT WAS SLEEPING.
[2022-08-11 05:39] LABS: Hematocrit 21.6 % (37.0-53.0); Mean Corpuscular HGB 27.5 pg (26.0-34.0); Mean Corpuscular HGB Conc 32.4 g/dL (31.5-36.5); Mean Corpuscular Volume 85 fL (80-100); Mean Platelet Volume 10.1 fL (9.1-12.4); NRBC ABSOLUTE 0.04 K/mm3 (0.00-0.02); NRBC Auto 0.2 /100 WBC (0.0-0.2); Platelet Count 956 K/mm3 (150-400); RDW Coefficient Variation 18.3 % (11.7-14.2); RDW Standard Deviation 54.7 fL (35.1-46.3); Red Blood Cell Count 2.55 M/mm3 (4.30-5.90); White Blood Cell Count 26.38 K/mm3 (4.00-11.30)
--- NOTE | 2022-08-11 06:30 | NUR ---
PT MEDICATED WITH OXYCODONE FOR RETURN OF PAIN. PT HAS GOOD OUTPUT FROM ILEOSTOMY INCLUDING FLATUS. HAS TAKEN CLEAR LIQUIDS WELL WITHOUT NAUSEA. PT HAS SLEPT FOR SHORT PERIODS AND AWAKENS FOR NEEDS. WILL CONTINUE TO MONITOR PT, AND WILL REPORT OFF TO ONCOMING RN.
[2022-08-11 06:43] LABS: Albumin, Blood 1.7 g/dL (3.4-5.0); Albumin/Globulin Ratio 0.4 (0.8-1.8); Bilirubin, Total 0.6 mg/dL (0.1-1.0); Bun/Creatinine Ratio 25.2 (12.0-20.0); Calcium, Blood 8.5 mg/dL (8.5-10.1); Creatinine, Blood 4.48 mg/dL (0.60-1.20); Globulin, Blood 3.9 g/dL (2.2-4.0); Potassium, Blood 4.8 mmol/L (3.5-5.5); Total Protein, Blood 5.6 g/dL (6.4-8.2)
[2022-08-11 07:36] LABS: BASOPHILS PERCENT MAN 0 % (0-2); EOSINOPHILS ABSOLUTE MAN 1.05 K/mm3 (0.00-0.68); EOSINOPHILS PERCENT MAN 4 % (0-6); LYMPHOCYTES ABSOLUTE MAN 1.58 K/mm3 (0.84-5.20); LYMPHOCYTES PERCENT MAN 6 % (21-46); MONOCYTES ABSOLUTE MAN 3.16 K/mm3 (0.16-1.47); MONOCYTES PERCENT MAN 12 % (4-13); MYELOCYTE ABSOLUTE MAN 0.79 K/mm3 (0.00-0.00); MYELOCYTE PERCENT MAN 3 % (0-0); NEUTROPHILS ABSOLUTE MAN 19.78 K/mm3 (1.96-9.15); SEG NEUTROPHILS PERCENT MAN 75 % (41-73); TOTAL CELLS COUNTED 100
--- NOTE | 2022-08-11 07:54 | NUR ---
Assumed care at approximately 0700. Surgeon in room at time of report. Pt resting in bed, on room air, alert but c/o pain 02/01. PICC in place, wnl. No acute needs, VS stable. Continue to monitor.
--- NOTE | 2022-08-11 16:55 | NUR ---
PT TRANSFERRED AT APPROXIMATELY 1630. REPORT GIVEN TO SURGICAL FLOOR RN. ALL BELONGINGS TRANSFERRED WITH PATIENT. VS STABLE, NO ACUTE NEEDS.
--- NOTE | 2022-08-11 17:14 | NUR ---
1655 TO 224 PER BED ACCOMPANIED BY FRIEND. PT ALERT AND ORIENTED, REPORTS ABD PAIN AND PAIN IN HEELS. HEELS FLOATED ON PILLOW, RIGHT HEEL WITH 1/4 INCH PINK, SLIGHTLY FIRM AREA OF SKIN. PT REPORTS RELIEF OF PAIN IMMEDIATELY WHEN HEELS FLOATED. MICLINE ABD INCISION WITH DARNELL INTACT. ONE AREA OF GAUZE PACKING TO INCISION WITH SEROSANGUINOUS DRAINAGE-NEW GAUZE DRESSING APPLIED TO SITE. JEFF X2 WITH SEROUS DRAINAGE.
--- NOTE | 2022-08-11 18:02 | NUR ---
NO CHANGES SINCE TRANSFER TO ROOM. PT HAS HVAC ESTIMATOR WITH DOSE OF 15 MCG LOCKOUT OF 15 MIN. PT RESTS WITHEYES CLOSED AFTER HVAC ESTIMATOR USE.
--- NOTE | 2022-08-12 08:44 | NUR ---
SUMMARY PT SLEEPS WHEN UNDISTURBED AND NON COMPLIANT WITH CDB.PT DOES USE FLUTTER. PT ON HEAD OF CONSERVATION AND PO PAIN MEDS.HX CHRONIC PAIN.
[2022-08-12 10:22] LABS: Hematocrit 21.9 % (37.0-53.0); Mean Corpuscular HGB 28.6 pg (26.0-34.0); Mean Corpuscular Volume 89 fL (80-100); Mean Platelet Volume 10.5 fL (9.1-12.4); NRBC ABSOLUTE 0.04 K/mm3 (0.00-0.02); NRBC Auto 0.2 /100 WBC (0.0-0.2); Platelet Count 964 K/mm3 (150-400); RDW Coefficient Variation 18.7 % (11.7-14.2); RDW Standard Deviation 60.3 fL (35.1-46.3); Red Blood Cell Count 2.45 M/mm3 (4.30-5.90); White Blood Cell Count 25.86 K/mm3 (4.00-11.30)
[2022-08-12 11:48] LABS: BAND PERCENT MAN 1 % (0-8); BASOPHILS ABSOLUTE MAN 0.51 K/mm3 (0.00-0.23); BASOPHILS PERCENT MAN 2 % (0-2); EOSINOPHILS ABSOLUTE MAN 1.29 K/mm3 (0.00-0.68); EOSINOPHILS PERCENT MAN 5 % (0-6); LYMPHOCYTES ABSOLUTE MAN 4.65 K/mm3 (0.84-5.20); LYMPHOCYTES PERCENT MAN 18 % (21-46); METAMYELOCYTE ABSOLUTE MAN 0.25 K/mm3 (0.00-0.00); METAMYELOCYTE PERCENT MAN 1 % (0-0); MONOCYTES ABSOLUTE MAN 2.06 K/mm3 (0.16-1.47); MONOCYTES PERCENT MAN 8 % (4-13); MYELOCYTE ABSOLUTE MAN 0.25 K/mm3 (0.00-0.00); MYELOCYTE PERCENT MAN 1 % (0-0); SEG NEUTROPHILS PERCENT MAN 64 % (41-73); TOTAL CELLS COUNTED 100
[2022-08-12 12:00] LABS: Bun/Creatinine Ratio 26.1 (12.0-20.0); Calcium, Blood 8.4 mg/dL (8.5-10.1); Creatinine, Blood 3.29 mg/dL (0.60-1.20); Potassium, Blood 4.7 mmol/L (3.5-5.5)
--- NOTE | 2022-08-12 19:50 | NUR ---
SHIFT SUMMARY PT A&OX4, VSS/RA, JAMAL FULL LIQ DIET, VOIDING/URINAL, KPAD, WEAK/REPOSITIONS WITH ENCOURAGEMENT. OSTOMY CHANGED TODAY, OUTPUT IS BROWN/LIQUID+CHUNKS, ABDOMINAL INCISION GAUZE PACKING CHANGED TWICE, JEFF DRAINS DRESSING CHANGED. IVF @ 75 MLS/HR, ABX PER EMAR. ELECTRICAL ENGINEERING TECHNOLOGIST DEMAND AND OXY 5 MG FOR PAIN MANAGEMENT. WILL REPORT TO ONCOMING NOC RN.
[2022-08-12 23:54] LABS: Bicarbonate Venous 19.1 mmol/L (24.0-30.0); PCO2 Venous 33 mmHg (38-42); pH Blood Venous 7.36 (7.34-7.37)
[2022-08-12 23:55] LABS: Base Excess Venous -6.6 mmol/L
[2022-08-13 00:06] LABS: Hematocrit 22.3 % (37.0-53.0); Hemoglobin 7.2 g/dL (13.5-17.5); Mean Corpuscular HGB 27.3 pg (26.0-34.0); Mean Corpuscular HGB Conc 32.3 g/dL (31.5-36.5); Mean Corpuscular Volume 85 fL (80-100); Mean Platelet Volume 10.1 fL (9.1-12.4); NRBC ABSOLUTE 0.03 K/mm3 (0.00-0.02); NRBC Auto 0.1 /100 WBC (0.0-0.2); Platelet Count 970 K/mm3 (150-400); RDW Coefficient Variation 18.1 % (11.7-14.2); RDW Standard Deviation 54.4 fL (35.1-46.3); Red Blood Cell Count 2.64 M/mm3 (4.30-5.90); White Blood Cell Count 30.16 K/mm3 (4.00-11.30)
[2022-08-13 00:14] LABS: Calcium, Blood 8.5 mg/dL (8.5-10.1); Creatinine, Blood 2.96 mg/dL (0.60-1.20); Potassium, Blood 5.3 mmol/L (3.5-5.5)
[2022-08-13 00:26] LABS: BAND PERCENT MAN 5 % (0-8); BASOPHILS PERCENT MAN 0 % (0-2); EOSINOPHILS PERCENT MAN 2 % (0-6); LYMPHOCYTES PERCENT MAN 6 % (21-46); MONOCYTES ABSOLUTE MAN 4.82 K/mm3 (0.16-1.47); MONOCYTES PERCENT MAN 16 % (4-13); MYELOCYTE PERCENT MAN 1 % (0-0); NEUTROPHILS ABSOLUTE MAN 22.62 K/mm3 (1.96-9.15); SEG NEUTROPHILS PERCENT MAN 70 % (41-73); TOTAL CELLS COUNTED 100
--- NOTE | 2022-08-13 08:15 | NUR ---
SUMMARY PT WTIH EDEMA,UNBALANCED I/O ALTHOUGH HE HAS AMANUEL THIS ADMIT.ALSO PT HAS R NECK APPEARANCE OF WHITE PUSTULE DEVELOPING AT PREVIOUS CENTRAL LINE SITE WHICH IS COVERED BY OPSITE.PT HAVING LOW GRADE TEMPS INTERMITTENTLY.COURSE AND LOOSE LUNG SOUNDS AND HAD BEEN VENTED POSTOP.PT NON-COMPLIANT WITH CDB,WILL OCC USE FLUTTER.PT IV FLUIDS WERE DECREASED IN RATE YESTERDAY.MERIPENEM HAD CHANGES ALSO DUE TO RENAL DOSING.RESP RATE INCREASED TO 28.PT DENIED SOB.RESP APPEARED UNLABORED.HOWEVER, DUE TO THE ABOVE AND PTS BEHAVIOR EXAGGERATED TO SITUATION,IT IS DIFF TO ASSESS WHAT MAY BE SIGNS OF CLINICAL DECLINE.PT YELLS OUT FOR SODA,AND WANTING OF WARM BLANKET YELLING "HELP ME" OUT TO HALLS,EVEN WHEN HE HAD BEEN ADVISED HE HAD A LOW GRADE TEMP AND WOULD NEED TO CDB AND BRING TEMP DOWN BEFORE HEATED BLANKET COULD BE GIVEN.I CALLED STEPHEN AND ADVISED OF ABOVE.RECEIVED ORDER FOR VBG,WHICH HAD NO SIGNIFICANT FINDING.ALSO PULLED AM LABS AT SAME TIME.WBC INCREASED TO 30,[address] CASTRO AND DISCUSSED ABOVE WELL LABS.PORTABLE CXR,LACTIC AND PROCALCITONIN WERE ORDERED.AND COMPLETED.DR CASTRO ADVISED CXR FILM WAS AVAILABLE AND LABS REPORTED. PT CDB NOW AND REPORTED FEELING BETTER.
--- NOTE | 2022-08-13 18:19 | NUR ---
SHIFT SUMMARY PT A&OX4, VSS/RA, JAMAL FULL LIQ DIET, VOIDING/URINAL, OSTOMY CHANGED TODAY, OUTPUT IS BROWN/LIQUID+CHUNKS, ABDOMINAL INCISION GAUZE PACKING CHANGED TWICE, JEFF DRAINS DRESSING CHANGED. IVF @ 75 MLS/HR, ABX PER EMAR, CPN @ 73 MLS/HR. PAIN MANAGED WITH OXY 10 MG Q4, DC'D CERTIFIED PEDORTHOTIST TODAY. PT STOOD & AMB FEW STEPS TO CHAIR/BED W/2 PP MOD ASSIST, UP TO CHAIR ABOUT 4 HOURS/JAMAL WELL, REPOSITIONS SELF, NEEDS ENCOURAGEMENT TO MOVE. WILL REPORT TO ONCOMING NOC RN.
[2022-08-14 04:08] LABS: Hematocrit 22.1 % (37.0-53.0); Hemoglobin 7.2 g/dL (13.5-17.5); Mean Corpuscular HGB 27.3 pg (26.0-34.0); Mean Corpuscular HGB Conc 32.6 g/dL (31.5-36.5); Mean Corpuscular Volume 84 fL (80-100); Mean Platelet Volume 9.9 fL (9.1-12.4); NRBC ABSOLUTE 0.06 K/mm3 (0.00-0.02); NRBC Auto 0.2 /100 WBC (0.0-0.2); Platelet Count 968 K/mm3 (150-400); RDW Coefficient Variation 17.8 % (11.7-14.2); RDW Standard Deviation 52.8 fL (35.1-46.3); Red Blood Cell Count 2.64 M/mm3 (4.30-5.90); White Blood Cell Count 27.31 K/mm3 (4.00-11.30)
[2022-08-14 05:00] LABS: Albumin, Blood 1.7 g/dL (3.4-5.0); Albumin/Globulin Ratio 0.4 (0.8-1.8); Bilirubin, Total 0.3 mg/dL (0.1-1.0); Calcium, Blood 9.3 mg/dL (8.5-10.1); Creatinine, Blood 2.85 mg/dL (0.60-1.20); Globulin, Blood 4.3 g/dL (2.2-4.0); Potassium, Blood 5.4 mmol/L (3.5-5.5)
--- NOTE | 2022-08-14 05:04 | NUR ---
SHIFT SUMMARY POD#12 R HEMICOLLECTOMY. ILEOSTOMY PLACEMENT. FREQUENT LOOSE ORANGE OUTPUT NOTED. JEFF X2 WITH MINIMAL SEROSANGUINEOUS OUTPUT. PACKING WITH GAUZE TO MIDLINE INCISION W/ SEROSANGUINEOUS DRAINAGE, CHANGED THIS SHIFT. TOLERATES FULL LIQ DIET. IV FLUIDS AND CPN INFUSING. PATIENT VOIDS USING URINAL. MEDICATED T/O SHIFT W/ PO PAIN MEDS, AND TOLERATED WELL. REPOSITIONED WITH PILLOWS T/O SHIFT. ENCOURAGED DEEP BREATHING AND COUGHING. IS AT BEDSIDE EDUCATED TO USE WHILE AWAKE. REMINDED PATIENT TO USE CALL LIGHT INSTEAD OF CALLING OUT FOR PAIN MEDICATION. VSS, WILL HAND OFF TO ONCOMING RN.
[2022-08-14 05:12] LABS: BAND PERCENT MAN 1 % (0-8); BASOPHILS ABSOLUTE MAN 0.81 K/mm3 (0.00-0.23); BASOPHILS PERCENT MAN 3 % (0-2); EOSINOPHILS ABSOLUTE MAN 1.36 K/mm3 (0.00-0.68); EOSINOPHILS PERCENT MAN 5 % (0-6); LYMPHOCYTES ABSOLUTE MAN 1.09 K/mm3 (0.84-5.20); LYMPHOCYTES PERCENT MAN 4 % (21-46); MONOCYTES PERCENT MAN 11 % (4-13); NEUTROPHILS ABSOLUTE MAN 21.02 K/mm3 (1.96-9.15); SEG NEUTROPHILS PERCENT MAN 76 % (41-73); TOTAL CELLS COUNTED 100
--- NOTE | 2022-08-14 16:47 | NUR ---
SHIFT SUMMARY POD12 R MORRO COLLECTOMY c NEW ILIOSTOMY PLACED, A/OX4, VSS, TOLERATING PO, PAIN WELL MANAGED, ENCOURAGED TO BE UP TO CHAIR T/O THE DAY AND AMBULATE TO THE DOOR AND BACK 4X DAILY PER OT RECOMMENDATION. OSTOMY OUTPUT CONTINUES TO BE LIQUID BUT IS SLOWING DOWN TO MORE MANAGABLE AMOUNTS, ABLE TO GO CLOSER TO 2 HOURS BEFORE EMPTYING/BURPING. 2 WALKS DONE SO FAR WITH 2 MORE TO GO. NO ACUTE EVENTS THIS SHIFT, CALL LIGHT IN REACH, WILL CTM AND REPORT TO ONCOMING JULIO C RN.
--- NOTE | 2022-08-15 06:40 | NUR ---
Patient AAOX3. Dressing are intact. JEFF drain has minimal serosang output. Colostomy clean dry and intact, stoma pink. Colostomy is brown and loose with some visible soft chunks. PRN pain meds given. Patient voiding. No questions or concerns at this time.
[2022-08-15 07:57] LABS: Albumin, Blood 1.8 g/dL (3.4-5.0); Anion Gap 4 mmol/L (6-16); Blood Urea Nitrogen 70 mg/dL (8-24); Bun/Creatinine Ratio 21.7 (12.0-20.0); CO2, Blood 21 mmol/L (21-32); Calcium, Blood 9.3 mg/dL (8.5-10.1); Chloride, Blood 105 mmol/L (98-108); Creatinine, Blood 3.22 mg/dL (0.60-1.20); Glomerular Filtration Rate 21 (60-); Glucose, Blood 86 mg/dL (70-99); Potassium, Blood 5.4 mmol/L (3.5-5.5); Sodium, Blood 130 mmol/L (136-145)
--- NOTE | 2022-08-15 19:40 | NUR ---
SHIFT SUMMARY POD 13 SUBTOTAL COLLECTOMY, A/OX4, VSS, PT ANXIOUS TODAY AND IS VERY RESISTANT WITH WORKING WITH THERAPY, PT REPORTS THAT HE WALKED YESTERDAY AND DOESN'T WANT TO TODAY. PT NEEDING A LOT OF ENCOURAGEMENT TO GET HIM UP AND MOVING BUT IS ABLE TO WALK WITH MINIMAL ASSISTANCE ONCE HE IS UP. WALKED 3 TIMES IN THE HALLS. NO ACUTE EVENTS THIS SHIFT, CALL LIGHT IN REACH, REPORT GIVEN TO JULIO C RN.
[2022-08-16 03:34] LABS: BASOPHILS ABSOLUTE AUTO 0.08 K/mm3 (0.00-0.23); BASOPHILS PERCENT AUTO 1 % (0-2); EOSINOPHILS ABSOLUTE AUTO 1.01 K/mm3 (0.00-0.68); EOSINOPHILS PERCENT AUTO 7 % (0-6); Hematocrit 21.3 % (37.0-53.0); Hemoglobin 6.9 g/dL (13.5-17.5); IMMATURE GRAN ABSOLUTE AUTO 0.31 K/mm3 (0.00-0.10); IMMATURE GRAN PERCENT AUTO 2 % (0-1); LYMPHOCYTES ABSOLUTE AUTO 2.71 K/mm3 (0.84-5.20); LYMPHOCYTES PERCENT AUTO 18 % (21-46); MONOCYTES ABSOLUTE AUTO 2.31 K/mm3 (0.16-1.47); MONOCYTES PERCENT AUTO 15 % (4-13); Mean Corpuscular HGB Conc 32.4 g/dL (31.5-36.5); Mean Corpuscular Volume 83 fL (80-100); Mean Platelet Volume 9.5 fL (9.1-12.4); NEUTROPHILS PERCENT AUTO 58 % (41-73); NRBC ABSOLUTE 0.06 K/mm3 (0.00-0.02); NRBC Auto 0.4 /100 WBC (0.0-0.2); Platelet Count 851 K/mm3 (150-400); RDW Coefficient Variation 17.3 % (11.7-14.2); RDW Standard Deviation 52.2 fL (35.1-46.3); Red Blood Cell Count 2.56 M/mm3 (4.30-5.90); White Blood Cell Count 15.32 K/mm3 (4.00-11.30)
[2022-08-16 03:58] LABS: Albumin, Blood 1.7 g/dL (3.4-5.0); Anion Gap 4 mmol/L (6-16); Blood Urea Nitrogen 67 mg/dL (8-24); Bun/Creatinine Ratio 21.5 (12.0-20.0); CO2, Blood 20 mmol/L (21-32); Chloride, Blood 107 mmol/L (98-108); Creatinine, Blood 3.12 mg/dL (0.60-1.20); Glomerular Filtration Rate 22 (60-); Glucose, Blood 100 mg/dL (70-99); Phosphorus, Blood 5.1 mg/dL (2.5-4.9); Potassium, Blood 4.9 mmol/L (3.5-5.5); Sodium, Blood 131 mmol/L (136-145)
--- NOTE | 2022-08-16 04:19 | NUR ---
POD14 FOR EX LAP WITH OSTOMY CREATION. VSS. MIDLINE INCISION TICKET CLERK WITH WET TO DRY PACKING IN MIDLINE DEHISSANCE. OSTOMY HAD MODERATE LIQUID OUTPUT, MINIMAL SS NOTED FROM JEFF DRAINS. PT VOIDING W/O DIFFICULTY. TOLLERATING PO INTAKE W/O N/V. PT EDUCATED T/O THE NIGHT ABOUT FREE WATER RESTRICTION, THE IMPORTANCE OF PARTICIPATING IN CARE, AND OSTOMY CARE. PT WAS ABLE TO ASSIST EMPTYING OSTOMY ONCE. PT SLEPT WELL T/O THE NIGHT. PLAN FOR PT TO CONTINUE TO WORK WITH PT/OT AND ADVANCE DIET BEFORE D/C. THE PATIENT IS CURRENTLY SLEEPING, IN NO DISTRESS, CALL LIGHT IN REACH
--- NOTE | 2022-08-16 16:06 | NUR ---
THE PHYSICAL THERAPIST THAT WAS WORKING WITH THE PATIENT SAW CHARGE NURSE GO IN THE HALLWAY AND ASKED IF SHE COULD COME INTO THE ROOM TO LOOK AT THE PATIENT. CHARGE NURSE DONAVAN WALKED IN AND SAW THAT THE PATIENTS OSTOMY BAG WAS COMPLETELY OFF WITH LIQUID LOOSE STOOL ON THE PATIENT AND BARRY PAD. CHARGE NURSE DONAVAN CALLED THIS NURSE INTO THE ROOM TO HELP CLEAN AND REAPPLY A NEW OSTOMY APPLIANCE FOR THE PATIENT. WHEN DONAVAN AND THIS NURSE WERE CLEANING THE STOMA WE BOTH NOTICED THAT THE STOMA WAS SLOUGHING OFF AND THE LEFT SIDE OF THE STOMA HAS A BLACK COLOR TO IT. A PICTURE WAS TAKEN FOR REFERENCE. AFTER PUTTING A NEW APPLIANCE ON THE PATIENTS OSTOMY AND HAVING THE BED AND HIS SKIN CLEANED UP THIS NURSE CALLED DR. COHEN TO UPDATE. PATIENT IS LAYING IN BED WITH CALL LIGHT IN REACH. ONCE THIS NURSE CALLED DR. COHEN TO NOTIFY HIM OF WHAT IS NOTED ABOVE. HE SAID THAT HE WOULD LOOK AT THE PHOTO IN THE MORNING BUT ISN'T SURPRISED DUE TO HIS PRIOR LIVING SITUATION, DIET, AND DRUG USE. DR. COHEN ALSO MENTIONED THAT ANOTHER SURGERY WOULDN'T BE AVAILABLE TO HIM AT THIS TIME BUT IS HAPPY TO BE NOTIFIED.
--- NOTE | 2022-08-16 18:11 | NUR ---
SHIFT SUMMARY: POD 14 COLOSTOMY PATIENT RECIEVED 1 UNIT OF BLOOD TODAY AND TOLERATED IT WELL. VS ARE WNL AND IS ON RA. MIDLINE INCISION IS HOGSHEAD INSPECTOR WITH A WET TO DRY PACKING ON ONE SPOT FROM ABD MIDLINE DEHIS. OSTOMY HAD LIQUID BROWN OUTPUT AND APPLIANCE WAS CHANGED TODAY. THE 2 JEFF DRAINS STILL HAVE MINIMAL OUTPUT WITH BULBS COMPRESSED. PATIENT IS TOLERATING PO INTAKE AND IS VOIDING. HE IS A SBA WITH FWW AND GAIT BELT. PATIENT IS LAYING IN BED EATING DINNER WITH CALL LIGHT IN REACH.
--- NOTE | 2022-08-17 03:40 | NUR ---
WOUND CARE GAUZE FALLING OUT OF DEHISSED WOUND CUT SHORT AND REINFORED WITH A DAMP 4X4 ON TOP.
[2022-08-17 04:30] LABS: Hematocrit 24.8 % (37.0-53.0); Hemoglobin 8.1 g/dL (13.5-17.5); Mean Corpuscular HGB 27.2 pg (26.0-34.0); Mean Corpuscular HGB Conc 32.7 g/dL (31.5-36.5); Mean Corpuscular Volume 83 fL (80-100); Mean Platelet Volume 9.3 fL (9.1-12.4); NRBC ABSOLUTE 0.03 K/mm3 (0.00-0.02); NRBC Auto 0.2 /100 WBC (0.0-0.2); Platelet Count 797 K/mm3 (150-400); RDW Coefficient Variation 16.8 % (11.7-14.2); RDW Standard Deviation 50.4 fL (35.1-46.3); Red Blood Cell Count 2.98 M/mm3 (4.30-5.90); White Blood Cell Count 16.92 K/mm3 (4.00-11.30)
[2022-08-17 04:52] LABS: Bun/Creatinine Ratio 21.7 (12.0-20.0); Calcium, Blood 8.7 mg/dL (8.5-10.1); Creatinine, Blood 2.58 mg/dL (0.60-1.20); Potassium, Blood 5.1 mmol/L (3.5-5.5)
--- NOTE | 2022-08-17 05:11 | NUR ---
POD16 FOR EX LAP WITH OSTOMY CREATION. MIDLINE INCISION DEHISSENCE HAS NEW PACKING, SEE PREVIOUS NOTE. MODERATE OUTPUT NOTED FROM ILEOSTOMY. STOMA NOTED TO HAVE WHITE SLOUGH ON SURFACE. PT REPORTED INCREASED ABD PAIN AT THE BEGINNING OF SHIFT. MEDICATED WITH PRN'S. VSS. PT SLEPT ON AND OFF T/O THE NIGHT. TOLLERATING PO INTAKE W/O N/V. PT VOIDING W/O DIFFICULTY. PLAN FOR PT TO WORK WIT PT/OT AND D/C TO SNF. THE PATIENT IS CURRENTLY SLEEPING, IN NO DISTRESS, CALL LIGHT IN REACH
--- NOTE | 2022-08-17 10:10 | NUR ---
DR COHEN IN TO SEE PT. CHANGED DRESSING TO ABD AND GAVE VERBAL ORDERS FOR DAILY WET/DRY DRESSING CHANGES. AWARE OF APPEARANCE OF STOMA.
--- NOTE | 2022-08-17 13:28 | NUR ---
CARE TURNED OVER TO SERA Hooper RN. REPORT GIVEN TO SERA Hooper RN.
--- NOTE | 2022-08-17 18:57 | NUR ---
Pt has been declining to work with therapies, as well as declining to participate in his own care with nursing/aides. Attempted to discuss this with pt, but he stated, "This talk is making me very upset, some of those therapists are just rude and this is a hospital. I should be able to rest and they should be giving me morphine at least once a day". Pt stopped making eye contact at this point and wasn't willing to continue any talk about participating in his care. Reported this to REAL Porter. Palliative to follow up with the patient, physician and health care specialist.
--- NOTE | 2022-08-17 19:27 | NUR ---
SHIFT SUMMARY ASSUMED CARE OF PATIENT AT 1400 FROM RAY BRENNER RN. PATIENT RESTING IN BED. REFUSES TO GET UP WITH NURSING STAFF OR PT/OT. REFUSES TO ENGAGE WITH OSTOMY TEACHING OR CARE. FIXATED ON OBTAINING MORPHINE FOR REPORTED ABD PAIN. OSTOMY WITH SIGNIFICANT LIQUID BROWN STOOL OUTPUT AND GAS. ROUTINE IV FLUIDS RUNNING. PALLIATIVE CARE CONSULTED TO HELP WITH GOALS OF CARE. DIFFICULT TO ASCERTAIN WHAT PATIENT WANTS BEYOND IV MORPHINE, TO BE LEFT ALONE IN BED, AND TO BE BROUGHT FOOD AND DRINK. DOES NOT ENGAGE IN CARE PLANNING OR DISCHARGE PLANNING. REPORT GIVEN TO NAIL MILL WORKER RN.
--- NOTE | 2022-08-18 04:29 | NUR ---
SHIFT SUMM S/P COLECTOMY. MIDLINE INCISION WITH DARNELL LEE, DEHISCENCE INCISION PACKED WITH GAUZE WITH SCANT SEROSANGUINEOUS DRAINAGE. ILIEOSTOMY WITH LARGE AMOUNTS OF LIQUID STOOL, ORANGE IN COLOR. PATIENT VOIDS USING URINAL AT BEDSIDE. IV FLUIDS RUNNING. PATIENT ENCOURAGED TO SLOW DOWN ON LIQUIDS HE IS HAVING FREQUENT BELLY PAIN AND LOW SODIUM. PAITENT DENIES N/V, N/T AND IS ABLE TO SIT AT EDGE OF BED AND STAND WITH 1 ASSIST. PATIENT CAN REPOSITION SELF IN BED, HEELS HAVE BEEN FLOATED T/O SHIFT ON PILLOWS. FREQUENT ENCOURAGEMENT TO MOVE AND PARTAKE IN THERAPIES. VSS, CALL LIGHT IS IN REACH, WILL REPORT TO DAY RN.
[2022-08-18 08:33] LABS: Hematocrit 27.7 % (37.0-53.0)
[2022-08-18 08:53] LABS: Bun/Creatinine Ratio 17.5 (12.0-20.0); Calcium, Blood 9.1 mg/dL (8.5-10.1); Creatinine, Blood 2.28 mg/dL (0.60-1.20); Potassium, Blood 4.9 mmol/L (3.5-5.5)
--- NOTE | 2022-08-18 14:00 | NUR ---
AM SHIFT SUMMARY PATIENT ANXIOUS AND WITHDRAWN. DOES NOT PARTICIPATE IN OSTOMY CARE, DECLINES OT. AMBULATED 50 FEET WITH PT. UP TO RECLINER FOR A COUPLE HOURS. ROUTINE IV FLUIDS RUNNING. VOIDING USING URINAL. TOLERATING REGULAR DIET AND LIQUIDS. LIQUID BROWN STOOL OUTPUT IN ILEOSTOMY. PALLIATIVE CARE TO ROOM TO ASSESS PAIN AND MAKE PLAN WITH CARE MANAGEMENT. DR COHEN DC'D BOTH JPS. MEDICATE FOR PAIN PRN. MIDLINE INCISION WITH DARNELL, SMALL SECTION OPEN WITH WET GAUZE DRESSING.
--- NOTE | 2022-08-18 14:07 | NUR ---
Met with patient to review his needs and symptoms. Pt is very fearfull and anxious. pt states he has started having headaches, He denies ringining in his ears or dizziness. He feels his balance is ok. He is struggling with his teeth and only has a few left and they are not in good condition. He does not feel short of breath but struggles with deep breaths as it is painfull. H is having a lot of discomfort in hisgirdle area he feels like it is going to split open if he excerts himself. feels like he has to splint himself. He states he had galbladder surgery and he reponed well to pain meds and recovered well. He feels this is not doing well. He is greiving and fearful and angry. She states not much discomfort to his back and joints. note he has having some hiccups states they are worse at times. Met with progressive care unit registered nurse Roseanne rashid and we assured him his child support case officer is helping maintain his housing so he wont loose it. wer reviewed going to [facility] and rehabing. we carfully acknoledged his fears and stress and set a goal of learining his ostomy and getting his life back, Will review medication choices with physician and continue supportive visits. 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
--- NOTE | 2022-08-18 18:11 | NUR ---
GAVE REPORT TO MEDICAL FLOOR NURSE GOGO. AFTER GIVING REPORT GOGO NOBLE HAD NO FURTHER QUESTIONS. PATIENTS PERSONAL ITEMS ARE BEING GATHERED UP IN THE ROOM AND IS BEING TRANSFERRED TO ROOM 301.
--- NOTE | 2022-08-18 19:12 | NUR ---
Received report from surgical floor. Pt transfer to room 301. axox3. will continue to monitor.
[2022-08-19 05:38] LABS: Albumin, Blood 1.7 g/dL (3.4-5.0); Anion Gap 5 mmol/L (6-16); Blood Urea Nitrogen 35 mg/dL (8-24); Bun/Creatinine Ratio 16.1 (12.0-20.0); CO2, Blood 17 mmol/L (21-32); Calcium, Blood 9.1 mg/dL (8.5-10.1); Chloride, Blood 109 mmol/L (98-108); Creatinine, Blood 2.18 mg/dL (0.60-1.20); Glomerular Filtration Rate 34 (60-); Glucose, Blood 88 mg/dL (70-99); Phosphorus, Blood 3.5 mg/dL (2.5-4.9); Sodium, Blood 131 mmol/L (136-145)
--- NOTE | 2022-08-19 06:12 | NUR ---
Shift Summary Pt here from surgical floor after abd surgery 17 days ago. Incision is open to air with wet to dry guaze packing. Pt has colostomy in place which fills quickly with brown liquid stool and was emptyed every 4 hours. C/O abdominal pain, medicated per emar. Pt had some confusion, unsure what time it was. AOx3, VSS, pleasant and cooperative with care.
--- NOTE | 2022-08-19 19:06 | NUR ---
SHIFT SUMMARY: PT A&O X3-4. PT APPEARED VERY UPSET TODAY STATING HE DOES NOT KNOW WHAT HE HAS DONE WRONG. ILIOSTOMY EMPTIED SEVERAL TIME THIS SHIFT IT FILLS UP VERY FAST. ILIOSTOMY ALSO LEAKED ONTO BED. WAFER AND BAG REPLACED. INCISION W/ DARNELL OPEN TO AIR WITH WET GAUZE. FENTANYL PATCH PLACED FOR PAIN MANAGEMENT. NS RUNNING AT 75/HR. PICC LINE FLUSHING WELL. CALL LIGHT IN REACH. BED IN LOWEST POSITION.
[2022-08-20 13:30] LABS: Bun/Creatinine Ratio 13.9 (12.0-20.0); Calcium, Blood 9.1 mg/dL (8.5-10.1); Creatinine, Blood 2.16 mg/dL (0.60-1.20); Potassium, Blood 4.8 mmol/L (3.5-5.5)
--- NOTE | 2022-08-20 17:45 | NUR ---
SHIFT SUMMARY: PT A&O X3-4. NO ACUTE CHANGES WITH PT THIS SHIFT. OSTOMY EMPTIED Q2-3 HRS. PT HAS LARGE RED RASH IN GROIN THAT HE STATES IS SOMEWHAT PAINFUL. PLACED CREAM TO HOPEFULLY RELIEVE SOME PAIN. WILL TALK TO GUIDANCE CONSULTANT NURSE ABOUT POSSIBLY GETTING MEDICATED CREAM/POWDER. PT HAS NOT C/O PAIN MUCH YESTERDAY. GAVE ONE DOSE OF ROXICODONE. FENTANYL PATCH IN PLACE. PT WAS ABLE TO WALK TO BATHROOM W/ ONE PERSON AND FWW. ROUTINE IV FLUIDS RUNNING. MIDLINE INCISION PAINFUL W/O OTHER COMPLICATION. CALL LIGHT IN REACH. BED IN LOWEST POSITION. WILL CONTINUE TO MONITOR.
[2022-08-21 05:42] LABS: BASOPHILS ABSOLUTE AUTO 0.11 K/mm3 (0.00-0.23); BASOPHILS PERCENT AUTO 1 % (0-2); EOSINOPHILS ABSOLUTE AUTO 0.91 K/mm3 (0.00-0.68); EOSINOPHILS PERCENT AUTO 7 % (0-6); Hematocrit 24.9 % (37.0-53.0); IMMATURE GRAN ABSOLUTE AUTO 0.29 K/mm3 (0.00-0.10); IMMATURE GRAN PERCENT AUTO 2 % (0-1); LYMPHOCYTES ABSOLUTE AUTO 3.95 K/mm3 (0.84-5.20); LYMPHOCYTES PERCENT AUTO 28 % (21-46); MONOCYTES PERCENT AUTO 11 % (4-13); Mean Corpuscular HGB 26.9 pg (26.0-34.0); Mean Corpuscular HGB Conc 32.1 g/dL (31.5-36.5); Mean Corpuscular Volume 84 fL (80-100); Mean Platelet Volume 9.3 fL (9.1-12.4); NEUTROPHILS ABSOLUTE AUTO 7.12 K/mm3 (1.96-9.15); NEUTROPHILS PERCENT AUTO 51 % (41-73); Platelet Count 716 K/mm3 (150-400); RDW Coefficient Variation 16.5 % (11.7-14.2); RDW Standard Deviation 50.9 fL (35.1-46.3); Red Blood Cell Count 2.97 M/mm3 (4.30-5.90); White Blood Cell Count 13.98 K/mm3 (4.00-11.30)
--- NOTE | 2022-08-21 05:45 | NUR ---
Summary: No acute events overnight. Dresssing to mid abdomen clean dry and intact. Patient has a good apetite. Ate multiple jellos and ice cream. Oral pain meds given per emar. Patient has a rash to his groin. Applied powder and recieved order for desenex powder for am. Patient states he is itchy, PRN vistaril given per emar. Bed bath given this am. PICC line dressing and caps changed this am.
[2022-08-21 06:23] LABS: Albumin, Blood 1.8 g/dL (3.4-5.0); Albumin/Globulin Ratio 0.4 (0.8-1.8); Bilirubin, Total 0.3 mg/dL (0.1-1.0); Calcium, Blood 9.3 mg/dL (8.5-10.1); Creatinine, Blood 2.17 mg/dL (0.60-1.20); Globulin, Blood 4.5 g/dL (2.2-4.0); Phosphorus, Blood 3.2 mg/dL (2.5-4.9); Potassium, Blood 4.8 mmol/L (3.5-5.5); Total Protein, Blood 6.3 g/dL (6.4-8.2)
[2022-08-21 16:09] LABS: ACT. PRT C RESIST W/FV DEFIC. 2.7 ratio (.); APTT 29.3 sec (.); DRVVT CONFIRM SECONDS 48.9 sec (.); DRVVT RATIO 1.3 ratio (.); FACTOR VIII ACTIVITY 389 % (.); HEXAGONAL PHOSPHOLIPID NEUTRAL 9 sec (.); HOMOCYSTEINE 18.7 umol/L (.); PRT C ACTIVITY (CHROMOGENIC) 121 % (.)
--- NOTE | 2022-08-21 17:39 | NUR ---
SHIFT SUMMARY NO ACUTE CHANGES DURING SHIFT. PT ALERT AND ORIENTED, CALLS APPROPRIATELY. PT REMAINS ON RA, X 1 ASSIST TO BATHROOM. ILIOSTOMY BAG CHANGED TODAY, WELL DRESSING CHANGE COMPLETED PER ORDERS. PT MEDICATED X 1 WITH PRN MEDICATION, FENTANYL PATCH CHANGED WELL. PT WITH LOW GRADE FEVER, UP TO 100.5, MEDICATED WITH TYLENOL, EFFECTIVE. WILL CONTINUE TO MONITOR. CALL LIGHT WITHIN REACH.
--- NOTE | 2022-08-22 05:28 | NUR ---
SUMMARY: NO ACUTE EVENTS OVERNIGHT. PATIENT AOX4. VSS. MEDICATED FOR PAIN PER EMAR. OSTOMY BAD CHANGED AT START OF SHIFT IT WAS LEAKING. POWDER APPLIED TO PATIENT GROIN. REPOSITIONED PATIENT IN BED TOLERATED.
[2022-08-22 06:58] LABS: Albumin, Blood 1.9 g/dL (3.4-5.0); Anion Gap 7 mmol/L (6-16); Blood Urea Nitrogen 24 mg/dL (8-24); Bun/Creatinine Ratio 11.8 (12.0-20.0); CO2, Blood 18 mmol/L (21-32); Calcium, Blood 9.6 mg/dL (8.5-10.1); Chloride, Blood 108 mmol/L (98-108); Creatinine, Blood 2.04 mg/dL (0.60-1.20); Glomerular Filtration Rate 36 (60-); Glucose, Blood 100 mg/dL (70-99); Phosphorus, Blood 3.1 mg/dL (2.5-4.9); Potassium, Blood 5.4 mmol/L (3.5-5.5); Sodium, Blood 133 mmol/L (136-145)
[2022-08-22 08:36] LABS: BASOPHILS ABSOLUTE AUTO 0.12 K/mm3 (0.00-0.23); BASOPHILS PERCENT AUTO 1 % (0-2); EOSINOPHILS ABSOLUTE AUTO 0.55 K/mm3 (0.00-0.68); EOSINOPHILS PERCENT AUTO 3 % (0-6); Hematocrit 28.7 % (37.0-53.0); Hemoglobin 9.2 g/dL (13.5-17.5); IMMATURE GRAN ABSOLUTE AUTO 0.25 K/mm3 (0.00-0.10); IMMATURE GRAN PERCENT AUTO 1 % (0-1); LYMPHOCYTES ABSOLUTE AUTO 3.81 K/mm3 (0.84-5.20); LYMPHOCYTES PERCENT AUTO 20 % (21-46); MONOCYTES ABSOLUTE AUTO 1.38 K/mm3 (0.16-1.47); MONOCYTES PERCENT AUTO 7 % (4-13); Mean Corpuscular HGB 27.5 pg (26.0-34.0); Mean Corpuscular HGB Conc 32.1 g/dL (31.5-36.5); Mean Corpuscular Volume 86 fL (80-100); Mean Platelet Volume 9.6 fL (9.1-12.4); NEUTROPHILS ABSOLUTE AUTO 13.18 K/mm3 (1.96-9.15); NEUTROPHILS PERCENT AUTO 68 % (41-73); Platelet Count 751 K/mm3 (150-400); RDW Coefficient Variation 16.7 % (11.7-14.2); RDW Standard Deviation 52.2 fL (35.1-46.3); Red Blood Cell Count 3.35 M/mm3 (4.30-5.90); White Blood Cell Count 19.29 K/mm3 (4.00-11.30)
--- NOTE | 2022-08-22 17:47 | NUR ---
SHIFT SUMMARY NO ACUTE CHANGES DURING SHIFT. PT ALERT AND ORIENTED, CALLS APPROPRIATELY. PT REMAINS ON RA, SBA WITH FWW TO BATHROOM. PT MEDICATED WITH PRN PAIN MEDICATIONS X 3, EFFECTIVE. ILEOSTOMY BAG EMPTIED MULTIPLE TIMES, LOOSE STOOL. PT STARTED ON IMMODIUM WITH BANANA FLAKES. DRESSING TO ABD CHANGED. DRESSING CDI, DARNELL INTACT. WILL CONTINUE TO MONITOR. CALL LIGHT WITHIN REACH.
--- NOTE | 2022-08-23 05:05 | NUR ---
SHIFT SUMMARY PT A&O X 4, PT SITTING UP IN BED DURING BEDSIDE ROUNDING- PT MEDICATED FOR ABDOMEN PAIN ONCE OF THIS NOTE- EDUCATED PT ON MANAGING COLOSTOMY, PT DEMONSTRATED BURPING AND DRAINING COLOSTOMY WITHOUT PROBLEMS-BED LOW POSITION, CALL LIGHT WITHIN REACH, ROUNDING PER PROTOCOL
[2022-08-23 05:10] LABS: BASOPHILS ABSOLUTE AUTO 0.09 K/mm3 (0.00-0.23); BASOPHILS PERCENT AUTO 1 % (0-2); EOSINOPHILS ABSOLUTE AUTO 0.43 K/mm3 (0.00-0.68); EOSINOPHILS PERCENT AUTO 4 % (0-6); Hematocrit 26.5 % (37.0-53.0); Hemoglobin 8.5 g/dL (13.5-17.5); IMMATURE GRAN ABSOLUTE AUTO 0.24 K/mm3 (0.00-0.10); IMMATURE GRAN PERCENT AUTO 2 % (0-1); LYMPHOCYTES PERCENT AUTO 33 % (21-46); MONOCYTES ABSOLUTE AUTO 1.14 K/mm3 (0.16-1.47); MONOCYTES PERCENT AUTO 11 % (4-13); Mean Corpuscular HGB 27.3 pg (26.0-34.0); Mean Corpuscular HGB Conc 32.1 g/dL (31.5-36.5); Mean Corpuscular Volume 85 fL (80-100); Mean Platelet Volume 9.4 fL (9.1-12.4); NEUTROPHILS ABSOLUTE AUTO 5.07 K/mm3 (1.96-9.15); NEUTROPHILS PERCENT AUTO 49 % (41-73); Platelet Count 547 K/mm3 (150-400); RDW Coefficient Variation 16.5 % (11.7-14.2); RDW Standard Deviation 51.6 fL (35.1-46.3); Red Blood Cell Count 3.11 M/mm3 (4.30-5.90); White Blood Cell Count 10.37 K/mm3 (4.00-11.30)
[2022-08-23 05:33] LABS: Albumin, Blood 1.8 g/dL (3.4-5.0); Anion Gap 6 mmol/L (6-16); Blood Urea Nitrogen 24 mg/dL (8-24); Bun/Creatinine Ratio 11.4 (12.0-20.0); CO2, Blood 21 mmol/L (21-32); Calcium, Blood 9.7 mg/dL (8.5-10.1); Chloride, Blood 104 mmol/L (98-108); Glomerular Filtration Rate 35 (60-); Glucose, Blood 121 mg/dL (70-99); Phosphorus, Blood 3.3 mg/dL (2.5-4.9); Potassium, Blood 4.7 mmol/L (3.5-5.5); Sodium, Blood 131 mmol/L (136-145)
--- NOTE | 2022-08-23 17:40 | NUR ---
END OF SHIFT SUMMARY: PATIENT REPORTED PAIN AND NAUSEA DURING THE SHIFT. BOTH CONTROLLED WITH PRN MEDICATIONS AND REPOSITIONING. BY THE END OF THE SHIFT, SOFT, NON-LIQUID STOOL COMING FROM THE ILEOSTOMY. IT CONTINUES TO BE NOVA/YELLOW IN COLOR. IT CONTINUES TO REQUIRE BURPING ABOUT EVERY 2 HOURS. APPLIANCE REMAINED INTACT THROUGHOUT THE SHIFT. PATIENT WAS RESISTANT TO PARTICIPATING WITH SOME CARE. BY THE AFTERNOON, PATIENT CALM AND COMPLIANT WITH CARE. HE WORKED WITH PT RACING SECRETARY AND WAS CALM AND COOPERATIVE WITH COCOA MILL OPERATOR FOR CHANGING DRESSING PICC LINE DRESSIG CHANGE. PATIENT UP TO THE CHAIR FOR DINNER. PATIENT WORKED WITH STAFF FOR CHLORAHEXIDINE DAILY BATH RELATED TO PICC LINE.
--- NOTE | 2022-08-24 05:50 | NUR ---
SHIFT SUMMARY PT A&OX4- PT 1SBA PER REPORT- PT SITTING UP IN BED DURING BEDSIDE REPORT- CONTINUING EDUCATION AND DEMONSTRATION OF ILESTOMY CARE DONE T/O SHIFT- PT ENCOURAGED TO BURP AND DUMP OWN ILESTOMY- PT UPSET AND CUSSING AT STAFF D/T HOW OFTEN ILESTOMY HAS TO BE BURPED AND DRAINED- PT CUSSED AT THIS NURSE AND STATED, "GET ME SOME FUCKING PAIN MEDICINE AND A WARM BLANKET" INFORMED PT THAT HE WILL NOT TALK TO STAFF THAT WAY AND THAT IF HE WANTS SOMETHING HE HAS TO BE RESPECTFUL - PT STOPPED TALKING AND IGNORED THIS RN- INFORMED PT TO CALL WHEN HE NEEDED SOMETHING - MEDICATED PT X2 FOR LOWER BACK AND HIP PAIN T/O NIGHT- BED LOW POSITION, CALL LIGHT WITHIN REACH
--- NOTE | 2022-08-24 18:44 | NUR ---
SHIFT SUMMARY: NO ACUTE EVENTS. NO UNTOWARD BEHAVIORS. C/O CHRONIC L HIP AND ABD PAIN; MEDICATED PER EMAR. NEW FENTANYL PATCH PLACED ON R POSTERIOR AXILLARY AREA AND COVERED WITH TEGADERM TO KEEP IN PLACE; PREVIOUS FENTANYL PATCH NOT FOUND DURING SKIN ASSESSMENT. R ILEOSTOMY DRAINING LIGHT BROWN THICK LIQ STOOL; PT IS MANAGING GAS BUILD UP WITHIN BAG HIMSELF, BUT STILL REQUIRES ASSISTANCE TO DUMP CONTENTS HE CANNOT READILY GET UP TO BR D/T HIP PAIN. USING URINAL INDEPENDENTLY. W-->D DRESSING ON ABDOMEN COMPLETED, TOLERATED WELL.
--- NOTE | 2022-08-25 05:06 | NUR ---
PT A&O X 4- PT SITTING UP IN BED DURING BEDSIDE ROUNDS- PT C/O INCREASED ITCHING IN GROIN AREA- PT CLEANED AREA AND POWDER APPLIED PER D.O.- RASH CONTINUES TO DECREASE. MEDICATED WITH VISTARIL FOR ITCHING- MEDICATED PT X 1 T/O SHIFT FOR BACK ABD HIP PAIN- PT CONTINUES TO BURP AND DUMP OWN ILESTOMY BAG.
[2022-08-25 05:36] LABS: Albumin, Blood 1.5 g/dL (3.4-5.0); Anion Gap 4 mmol/L (6-16); Blood Urea Nitrogen 23 mg/dL (8-24); Bun/Creatinine Ratio 12.6 (12.0-20.0); CO2, Blood 19 mmol/L (21-32); Calcium, Blood 7.7 mg/dL (8.5-10.1); Chloride, Blood 113 mmol/L (98-108); Creatinine, Blood 1.83 mg/dL (0.60-1.20); Glomerular Filtration Rate 41 (60-); Glucose, Blood 81 mg/dL (70-99); Phosphorus, Blood 2.4 mg/dL (2.5-4.9); Potassium, Blood 3.8 mmol/L (3.5-5.5); Sodium, Blood 136 mmol/L (136-145)
--- NOTE | 2022-08-25 18:43 | NUR ---
SHIFT SUMMARY: PT COMPLAINED THAT OXYCODONE AND FENTANYL PATCH NOT MANAGING HIS PAIN, REQUESTED MORPHINE OR DILAUDID. SPOKE TO DR. HOFFMAN, RECEIVED ORDER FOR GABAPENTIN. AFTER GIVING FIRST DOSE THIS AFTERNOON, PATIENT REPORTED PAIN IS MUCH BETTER CONTROLLED, STATED NAUSEA ALSO RELIEVED (HE DID NOT REPORT NAUSEA EARLIER). R ILEOSOTOMY APPLIANCE CHANGED AFTER LEAKING WHEN PT SCRATCHED HIS SKIN NEAR APPLIANCE. OUTPUT HAS SLOWED AND THICKENED SLIGHTLY. DAILY DRESSING CHANGE ON ABD WOUND COMPLETED. REFUSED SQ HEPARIN THIS MORNING. APPETITE SLIGHTLY IMPROVED.
--- NOTE | 2022-08-26 04:13 | NUR ---
SHIFT SUMMARY NO ACUTE CHANGES TO REPORT THIS SHIFT. PT SLEEPS MOST OF THE NIGHT, FRUSRTATED ABOUT FREE WATER RESTRICTION BUT OTHERWISE PT HAS BEEN COOPERATIVE WITH CARE. STOOL FROM ILLEOSTOMY REMAINS LOOSE. EMPTIED ONCE THIS SHIFT. DRESSING INTACT TO ABD. PT STANDS ON THE SIDE OF THE BED TO USE URINAL WITH MINIMAL ASSISTANCE. VITALS STABLE. BED IN LOWEST POSITION, CALL LIGHT WITHIN REACH.
[2022-08-26 06:55] LABS: Anion Gap 5 mmol/L (6-16); Blood Urea Nitrogen 33 mg/dL (8-24); Bun/Creatinine Ratio 13.4 (12.0-20.0); CO2, Blood 24 mmol/L (21-32); Chloride, Blood 100 mmol/L (98-108); Creatinine, Blood 2.47 mg/dL (0.60-1.20); Glomerular Filtration Rate 29 (60-); Glucose, Blood 105 mg/dL (70-99); Phosphorus, Blood 3.2 mg/dL (2.5-4.9); Sodium, Blood 129 mmol/L (136-145)
[2022-08-26 06:56] LABS: Calcium, Blood 10.3 mg/dL (8.5-10.1)
[2022-08-26 09:39] LABS: BASOPHILS ABSOLUTE AUTO 0.08 K/mm3 (0.00-0.23); BASOPHILS PERCENT AUTO 1 % (0-2); EOSINOPHILS ABSOLUTE AUTO 0.31 K/mm3 (0.00-0.68); EOSINOPHILS PERCENT AUTO 2 % (0-6); Hemoglobin 9.6 g/dL (13.5-17.5); IMMATURE GRAN ABSOLUTE AUTO 0.23 K/mm3 (0.00-0.10); IMMATURE GRAN PERCENT AUTO 1 % (0-1); LYMPHOCYTES ABSOLUTE AUTO 4.26 K/mm3 (0.84-5.20); LYMPHOCYTES PERCENT AUTO 27 % (21-46); MONOCYTES ABSOLUTE AUTO 2.13 K/mm3 (0.16-1.47); MONOCYTES PERCENT AUTO 13 % (4-13); Mean Corpuscular HGB 26.7 pg (26.0-34.0); Mean Corpuscular Volume 84 fL (80-100); Mean Platelet Volume 8.9 fL (9.1-12.4); NEUTROPHILS ABSOLUTE AUTO 9.03 K/mm3 (1.96-9.15); NEUTROPHILS PERCENT AUTO 56 % (41-73); NRBC ABSOLUTE 0.02 K/mm3 (0.00-0.02); NRBC Auto 0.1 /100 WBC (0.0-0.2); Platelet Count 597 K/mm3 (150-400); RDW Coefficient Variation 15.9 % (11.7-14.2); RDW Standard Deviation 47.9 fL (35.1-46.3); Red Blood Cell Count 3.59 M/mm3 (4.30-5.90); White Blood Cell Count 16.04 K/mm3 (4.00-11.30)
--- NOTE | 2022-08-26 15:33 | NUR ---
SHIFT SUMMARY PT RESTING QUIETLY AT START OF SHIFT. WOKE EASILY FOR CARE, BUT WENT RIGHT BACK TO SLEEP. PT HAS SLEPT MOST OF THE DAY, ONLY WAKING WHEN WOKE BY STAFF FOR MEALS AND CARE. PT DID EMPTY HIS OWN OSTOMY, BUT TENDS TO PICK IT APART AND MAKE MESS. ATTEMPTED TO EDU PT AGAIN THAT HE DOES NOT NEED TO TAKE APPLIANCE OFF EVERY TIME TO EMPTY. DR HOFFMAN AGREEABLE TO PT HAVING BANANA FLAKES MIXED INTO MILK, PER PT REQUEST. PT HAS BEEN AGREEABLE TO TAKE THEM EACH TIME TO PRESENT TODAY. PT ALSO ABLE TO HAVE SPRITE, BUT DOES HAVE A FREE WATER RESTRICTION D/T LOW NA+ LEVEL; SEE CHART. NO C/O PAIN. PT IS VERY IMPATIENT AND DOES GET IRRITABLE AND START YELLING IF HE DOESN'T HAVE WHAT HE WANTS AT HIS FINGER TIPS AT ANY GIVEN MOMENT. RESTING QUIETLY AGAIN AT THIS TIME. CALL LT IN REACH.
--- NOTE | 2022-08-27 04:59 | NUR ---
SHIFT SUMMARY PT HAS RESTED MOST OF THE SHIFT, OSTOMY APPLIANCE CHANGED THERE WAS QUITE A BIT OF LEAKING PRESENT. PT PICKS AT OSTOMY APPLIANCE UNTIL IT DETACHES FROM HIS SKIN CAUSING STOOL TO LEAK OUTSIDE OF THE APPLIANCE. PT INSTRUCTED TO AVOID PICKING AT OSTOMY, APPLIANCE HAS HAD TO BE CHANGED ALMOST DAILY WITHIN THE LAST FEW DAYS A RESULT. PT MEDICATED FOR ABD PAIN PER EMAR. STOOL REMAINS QUITE LOOSE. VITALS ARE STABLE. NO ACUTE CHANGES OVERNIGHT, BED IN LOWEST POSITION, CALL LIGHT WITHIN REACH.
[2022-08-27 06:27] LABS: Anion Gap 7 mmol/L (6-16); Blood Urea Nitrogen 37 mg/dL (8-24); Bun/Creatinine Ratio 13.7 (12.0-20.0); CO2, Blood 20 mmol/L (21-32); Calcium, Blood 9.7 mg/dL (8.5-10.1); Chloride, Blood 100 mmol/L (98-108); Glomerular Filtration Rate 26 (60-); Glucose, Blood 103 mg/dL (70-99); Phosphorus, Blood 2.8 mg/dL (2.5-4.9); Potassium, Blood 5.3 mmol/L (3.5-5.5); Sodium, Blood 127 mmol/L (136-145)
--- NOTE | 2022-08-27 15:57 | NUR ---
SHIFT SUMMARY PT SLEEPING AT START OF SHIFT AGAIN TODAY. PT WOKE FOR MEALS AND MEDS, BUT THEN GOES RIGHT BACK TO SLEEP. PT HAS BEEN SLEEPING DURING DOCTOR VISITS WELL. GABAPENTIN TO BE ADJUSTED DURING THE DAY. PT ALSO DOES NOT DO WELL WITH OSTOMY, PICKING AT IT, INSTEAD OF EMPTYING IT. APPLIANCE AND DRSG CLEANED SEVERAL TIMES. PT REFUSED TO GET OOB TO CHAIR FOR MEALS. PT IS VERY UNMOTIVATED TO DO ANYTHING. RESTING QUIETLY WITH TV ON. CALL LT IN REACH.
--- NOTE | 2022-08-27 19:11 | NUR ---
multiple checks on pt. Sleeping most of the day. Will suggest team meeting to reevaluate prognosis and ability to participate.
--- NOTE | 2022-08-28 05:55 | NUR ---
SLEPT MOST OF SHIFT BUT AROUSABLE AND ORIENTED. ILEOSTOMY REQUIRES FREQUENT BURPING TO PREVENT LEAKING/REPLACING BAG. USES URINAL INDEPENDENTLY. PICC LINE FLUSHES WELL, SLUGGISH DRAW. REPOSITIONS SELF IN BED. FENTANYL PATCH SEEMS TO BE EFFECTIVE FOR PAIN. UNEVENTFUL NIGHT.
[2022-08-28 09:28] LABS: Albumin, Blood 2.1 g/dL (3.4-5.0); Anion Gap 3 mmol/L (6-16); Blood Urea Nitrogen 37 mg/dL (8-24); Bun/Creatinine Ratio 14.5 (12.0-20.0); CO2, Blood 24 mmol/L (21-32); Chloride, Blood 103 mmol/L (98-108); Creatinine, Blood 2.56 mg/dL (0.60-1.20); Glomerular Filtration Rate 28 (60-); Glucose, Blood 102 mg/dL (70-99); Phosphorus, Blood 3.3 mg/dL (2.5-4.9); Potassium, Blood 5.1 mmol/L (3.5-5.5); Sodium, Blood 130 mmol/L (136-145)
--- NOTE | 2022-08-28 16:01 | NUR ---
PATIENT A/OX4, UP WITH FWW AND 1 ASSIST IN HALLS TODAY. PATIENT ENCOURAGED TO CARE FOR OSTOMY HIMSELF AND ASSISTED NEEDED. MIDLINE DRESSSING CHANGED TODAY AND REMAINS C/D/I. VSS, ON RA. FENTANYL PATCH IN PLACE TO R CHEST, OXYCODONE USED FOR BREAKTHROUGH PAIN. ZOFRAN GIVEN THIS AM FOR NAUSEA WITH STATED RELIEF. TOLERATING REGULAR DIET, NO FREE WATER. PICC LINE TO BAY FLUSHES WELL, DOESN'T DRAW WELL. CONTINUES TO AWAIT PLACEMENT. NO NEW CONCERNS THIS SHIFT.
--- NOTE | 2022-08-29 05:42 | NUR ---
PT UP TO TOILET WITH X1 ASSIST WITH FWW. ABLE TO DO OSTOMY CARE WITH ENCOURAGMENT. TYLENOL GIVEN FOR FEVER OF 100.7, SBP IN 80'S WHILE ASLEEP AROUND 0300, ASYMPTOMATIC, WILL CONTINUE TO MONITOR. SLEPT MOST OF SHIFT, AROUSABLE. AOX4, PLEASANT, CALLS APPROPRIATELY.
[2022-08-29 08:51] LABS: Anion Gap 2 mmol/L (6-16); Blood Urea Nitrogen 37 mg/dL (8-24); Bun/Creatinine Ratio 14.5 (12.0-20.0); CO2, Blood 24 mmol/L (21-32); Calcium, Blood 10.3 mg/dL (8.5-10.1); Chloride, Blood 103 mmol/L (98-108); Creatinine, Blood 2.55 mg/dL (0.60-1.20); Glomerular Filtration Rate 28 (60-); Glucose, Blood 118 mg/dL (70-99); Phosphorus, Blood 3.7 mg/dL (2.5-4.9); Potassium, Blood 4.8 mmol/L (3.5-5.5); Sodium, Blood 129 mmol/L (136-145)
--- NOTE | 2022-08-29 16:50 | NUR ---
NO ACUTE CHANGES THIS SHIFT. PATIENT DOING BETTER AT CARING FOR HIS OWN OSTOMY, CONTINUES TO NEED ASSISTANCE WITH CHANGING OUT APPLIANCE. DRESSING TO ABDOMINAL WOUNDS CHANGED TODAY AND A WET TO DRY DRESSING WAS PLACED. PICC LINE TO BAY FLUSHES WELL, BUT DOES NOT DRAW. PATIENT SHOWERED TODAY AND WAS UP WITH FWW AND 1 ASSIST. DISCUSSED WITH PATIENT THE NEED TO BE OOB MORE FREQUENTLY TO GAIN STRENGTH AND DECREASE RISK OF SKIN BREAKDOWN. NAUSEA BETTER TODAY, MEDICATED X1 WITH ZOFRAN THIS AM. FENTANYL PATCH TO R CHEST AND OXYCODONE GIVEN FOR BREAKTHROUGH PAIN. FUNGAL POWDER APPLIED TO TREAT YEAST RASH TO GROIN. PATIENT HAS BEEN COMPLIANT WITH THE FREE WATER RESTRICTION.
--- NOTE | 2022-08-30 05:47 | NUR ---
PT MORE INVOLVED IN CARE, AMBULATING MORE. PHENERGEN AND OXYCODONE EFFECTIVE FOR PAIN AND NAUSEA. AOX4, COOPERATIVE, CALLS APPROPRIATELY. SLEPT MUCH OF SHIFT AFTER PAIN MEDS GIVEN. NO FREE WATER GIVEN, GATORADE, ENSURE, MILK. REPOSITIONS INDEPENDENTLY. ILEOSTOMY IS CLOSE TO ABD WOUND, MONITOR AND KEEP CLEAN. UNEVENTFUL NIGHT.
[2022-08-30 08:13] LABS: Albumin, Blood 1.9 g/dL (3.4-5.0); Anion Gap 5 mmol/L (6-16); Blood Urea Nitrogen 32 mg/dL (8-24); Bun/Creatinine Ratio 13.2 (12.0-20.0); CO2, Blood 22 mmol/L (21-32); Calcium, Blood 9.5 mg/dL (8.5-10.1); Chloride, Blood 105 mmol/L (98-108); Creatinine, Blood 2.42 mg/dL (0.60-1.20); Glomerular Filtration Rate 30 (60-); Glucose, Blood 111 mg/dL (70-99); Phosphorus, Blood 3.1 mg/dL (2.5-4.9); Potassium, Blood 4.5 mmol/L (3.5-5.5); Sodium, Blood 132 mmol/L (136-145)
--- NOTE | 2022-08-30 17:19 | NUR ---
PATIENT A/OX4, UP IN CHAIR FOR MOST OF THE AFTERNOON. WALKED IN HALLS WITH PT. BAY PICC LINE WNL, DRESSING CHANGED. VSS, ON RA. STOOL STARTING TO BE A THICKER CONSISTENCY. PATIENT DOING A GOOD JOB CARING FOR OSTOMY WITH MINIMAL ASSISTANCE. VOIDING IN URINAL. TOLERATING REGULAR DIET. DRESSING TO MIDLINE INCISION CHANGED TODAY AND PICTURES TAKEN. WET TO DRY DRESSING PLACED, QUESTIONED WHETHER A WOUND VAC WOULD BE APPROPRIATE IN HIS CASE. FENTANYL PATCH CHANGED TODAY AND OXYCODONE USED FOR BREAKTHROUGH. PATIENT COMPLIANT WITH FREE WATER RESTRICTION. CALLS APPROPRIATELY FOR ASSISTANCE.
--- NOTE | 2022-08-31 04:43 | NUR ---
Shift summery, Pt medicated for pain x 1 tonight. Pt now appears to be asleep. Call light in reach bed alarm on.
[2022-08-31 06:18] LABS: Hematocrit 27.1 % (37.0-53.0); Hemoglobin 8.8 g/dL (13.5-17.5); Mean Corpuscular HGB 26.9 pg (26.0-34.0); Mean Corpuscular HGB Conc 32.5 g/dL (31.5-36.5); Mean Corpuscular Volume 83 fL (80-100); Mean Platelet Volume 9.7 fL (9.1-12.4); NRBC ABSOLUTE 0.02 K/mm3 (0.00-0.02); NRBC Auto 0.1 /100 WBC (0.0-0.2); Platelet Count 538 K/mm3 (150-400); RDW Coefficient Variation 15.9 % (11.7-14.2); RDW Standard Deviation 47.8 fL (35.1-46.3); Red Blood Cell Count 3.27 M/mm3 (4.30-5.90); White Blood Cell Count 18.37 K/mm3 (4.00-11.30)
[2022-08-31 06:39] LABS: Anion Gap 4 mmol/L (6-16); Blood Urea Nitrogen 30 mg/dL (8-24); Bun/Creatinine Ratio 12.4 (12.0-20.0); CO2, Blood 22 mmol/L (21-32); Calcium, Blood 9.6 mg/dL (8.5-10.1); Chloride, Blood 103 mmol/L (98-108); Creatinine, Blood 2.41 mg/dL (0.60-1.20); Glomerular Filtration Rate 30 (60-); Glucose, Blood 101 mg/dL (70-99); Magnesium, Blood 1.6 mg/dL (1.6-2.4); Phosphorus, Blood 3.1 mg/dL (2.5-4.9); Potassium, Blood 4.9 mmol/L (3.5-5.5); Sodium, Blood 129 mmol/L (136-145)
--- NOTE | 2022-08-31 11:51 | NUR ---
PATIENT WITH ABDOMINAL PAIN 8/ THIS AM, MIDLINE INCISION UPPER DEHISCED AREA IS 3.5CMX2.5CM WITH DEPTH OF 2.5CM 30% SLOUGH IN WOUND BED, SURROUNDING SKIN INTACT BUT WITH WARMTH, DR CONCEPCION NOTIFIED OF CONCERNS AND REQUEST FOR WOUND CARE, DR CONCEPCION RECCOMEND CONTACTING SURGEON, PHONE CALL PLACED TO DR COHEN, LEFT MESSAGE WITH TELMA AT [facility].WAITING FOR CALL BACK
--- NOTE | 2022-08-31 16:31 | NUR ---
REVIEWED ALL NOTES AND ASSESSMENTS BY TOM NOBLE AND AGREE WITH THEM.
--- NOTE | 2022-08-31 17:53 | NUR ---
PATIENT WITH PAIN AND AGITATION INTERMITTENT TODAY, TREATED PER EMAR PATIENT DEMONSTRATED COLOSTOMY BAG AND WAFER CHANGED WITH VERBAL CUEING AND PHYSICAL ASSISTANCE OF APPLICATION OF STOMA PASTE. PATIENT UNABLE TO PLACE STOMA PASTE IN INDICATED LOCATION. WILL NEED REENFORCEMENT NURSE PERFORMED WET TO DRY DRESSING CHANGE TO UPPER AND LOWER MIDLING INCISION OPENINGS. PATIENT TOLERATED DRESSING CHANGE WELL WITH NO ADDITIONAL PAIN. CONTINUES TO BE UNMOTIVATED TO GET OUT OF BED EXCEPT WITH OT/PT. CALL LIGHT WITHIN REACH USES APPROPRIATELY. WILL CONTINUE TO MONITOR
--- NOTE | 2022-09-01 17:03 | NUR ---
REVIEWED ALL NOTES AND ASSESSMENTS BY DAIN RN AND AGREE WITH THEM.
--- NOTE | 2022-09-01 17:29 | NUR ---
PATIENT LABILE WITH AGITATION AND PAIN TODAY, C/O 7-10 THROUGHOUT DAY. HE PERFORMED ILEOSTOMY BAG/WAFER CHANGE AND WOUND CARE WITH VERBAL CUES AND SOME PHYSICAL ASSISTANCE OF THIS NURSE, WILL CONTINUE TO NEED FURTHER EDUCATION. . PT C/O ITCHING AT THIS TIME, WILL CONTINUE TO MEDICATE PER EMAR. CALL LIGHT WITHIN REACH.
--- NOTE | 2022-09-02 04:33 | NUR ---
SHIFT SUMERY, PT UPSET AT START OF SHIFT AND BECAME MORE AGITATED . PT STATED HE WAS GOING TO CALL A CAB AND GO AMA. TALKED TO PT ABOUT HIS LACK OF PALAN AND NO WHERE TO GO AND HIS CURRENT NEEDS FOR WOUND CARES AND OSTOMY SUPPLIES. PT RECONSIDRED AND DECIDED TO STAY AND WORK TOWARDS A BETTER PLAN WHERE HE CAN GO HOME TO HIS POD. DID TACHING ON DIET TO HELP WITH HEALING OF HIS ABD WOUNDS AND PT DEMONSTRATED HOW TO INJECT OWN LOVENOX. INCORAGED PT TO CONTINUE TO LEARN HOW TO DO OWN SELF CARES AND BECOME MORE ACTIVE TO INCREASE STRENGTH. PT HAS BEEN TAKING CARE OF EMPTYING HIS OWN OSTOMY. CALL LIGHT IN REACH.
[2022-09-02 08:23] LABS: Albumin, Blood 2.1 g/dL (3.4-5.0); Anion Gap 5 mmol/L (6-16); Blood Urea Nitrogen 38 mg/dL (8-24); Bun/Creatinine Ratio 15.6 (12.0-20.0); CO2, Blood 25 mmol/L (21-32); Calcium, Blood 10.3 mg/dL (8.5-10.1); Chloride, Blood 98 mmol/L (98-108); Creatinine, Blood 2.43 mg/dL (0.60-1.20); Glomerular Filtration Rate 30 (60-); Glucose, Blood 110 mg/dL (70-99); Phosphorus, Blood 3.4 mg/dL (2.5-4.9); Potassium, Blood 4.9 mmol/L (3.5-5.5); Sodium, Blood 128 mmol/L (136-145)
--- NOTE | 2022-09-02 12:33 | NUR ---
RN NOTE MR BROWN IS ORIENTATED X4. HE IS REPETATIVE WITH STATEMENTS AND QUESTIONS. 01/01 ABDOMINAL PAIN HELPED WITH OXY. MEDICATED FOR GENERAL ITCHINESS. HE EMPTIED HIS OWN OSTOMY THIS MORNING AND SAID HE FEELS COMFORTABLE DOING THIS. HE PARTICIPATED IN WOUND CARE TODAY OF OPEN ABDOMINAL WOUND WITH CLEANSING AND REPACKING. EDUCATED ON CLEAN TECHNIQUE AND WILL PLAN TO REVIEW AGAIN WITH NEXT DRESSING CHANGE. OSTOMY OUTPUT LIQUID, ON IMMODIUM. BED LOW, CALL LIGHT IN REACH.
--- NOTE | 2022-09-02 16:47 | NUR ---
SHIFT SUMMARY MR BROWN IS ALERT, ORIENTATED TO QUESTIONS, ABLE TO PARTICIPATE IN WOUND CARE AND DOING HIS OWN OSTOMY CARE. CONTINENT OF URINE AND ENGAGED IN CONVERSATION, THOUGH HE WAS REPETATIVE. THIS AFTERNOON HE HAD AN EPISODE OF ANGER, SWEARING, TELLING STAFF TO GET OUT OF HIS ROOM. HE SAID THAT THE IRONWORKER APPRENTICE WHO HAD CLEANED HIS ROOM WAS SUSPISCIOUS AND HE'S WORRIED ABOUT HIS BELONGINGS. HE SEEMED PARANOID IN WHAT HE WAS SAYING. HE SAID HE WANTED TO PLUG UP HIS OSTOMY SO THAT HE COULD HAVE RECTAL BOWEL MOVEMENTS AND THAT THE DOCTORS WON'T TELL HIM ANYTHING. SOON AFTERWARDS HE APPOLOGISED AND CALMED. GIVEN OXY FOR C/O NECK PAIN. HE HAD PREVIOUSLY AGREED TO TAKE A SHOWER, AND IS NOT AGREEING TO AT THE MOMENT. BED LOW, CALL LIGHT IN REACH.
--- NOTE | 2022-09-02 17:19 | NUR ---
RN NOTE REPORT TO CITLALI NOBLE AT 1700HRS WHO ASSUMED CARE OF PT.
--- NOTE | 2022-09-02 17:59 | NUR ---
SHIFT SUMMARY PT IS UP IN BED EATING DINER. AXO 3. PT IS INSISTENT THAT STAFF IS OVER MEDICATING HIM AND IS URGENT ABOUT WANTING TO GO HOME. STAFF PROVIDED THERAPEUTIC LISTENING AND ENCOURAGE PT TO STAY ONE MORE NIGHT IT IS LATE AND HE HAS NOT EATEN OR PREPARED TO LEAVE. HE IS COMPLIANT. PT REPORTS IMPROVMENT OF OUTPUT WITH IMMODIUM. BED IN LOWEST POSITION AND CALL LIGHT IN REACH.
--- NOTE | 2022-09-03 04:28 | NUR ---
LUIS CARLOS: NO ACUTE EVENTS OVERNIGHT. PATIENT PARTICIPATED IN CARE FOR HIS COLOSTOMY BY BURPING IT. VOIDS IN URINAL. PATIENT WAS VERBALIZING THAT STAFF WAS STEALING HIS BELONGINGS. REASSURED PATIENT THAT WE HAVE NOT TOUCHED HIS PERSONAL BELONGINGS. PATIENT ALSO CONCERNED STAFF WAS GIVING HIM MEDICATIONS THAT WERE MAKING HIM SLEEPY. EDUCATED PATIENT ON ALL MEDICATIONS ADMINISTERED. PATIENT DID NOT REQUEST PAIN MEDS OVERNIGHT. GAVE TYLENOL ONCE. COLOMSOMY CHANGED RIGHT BEFORE SHIFT WELL ABD DRESSING. BOTH WERE CLEAN DRY AND INTACT THROUGHOUT NIGHT.
--- NOTE | 2022-09-03 09:52 | NUR ---
RN AM NOTE MR BROWN IS ORIENTATED BUT VOICED FRUSTRATION THIS AM, SWEARING AND RAISED VOICE. HE HAS REFUSED TO GET OUT OF BED THIS MORNING. WILL OFFER AGAIN LATER.
--- NOTE | 2022-09-03 12:52 | NUR ---
This aid secured PICC line for a shower. the patient is safely ambulated to the bathroom with SBA. The patient is currently is in the shower. This aid instructed the patient to call or pull cable after shower and not get up without assistance with aid or nurse.
--- NOTE | 2022-09-03 16:00 | NUR ---
SHIFT SUMMARY MR BROWN WALKED IN THE HALLS TODAY WITH HIS WALKER, STEADY GAIT. HE WAS ASSISTED TO THE SHOWER AND DID HAVE EPISODE OF FEELING SOB AFTER THE SHOWER AND HAD TO SIT FOR SEVERAL MINUTES. PULSE OX AT THE TIME OF FEELING SOB WAS 99%, HR WAS ELEVATED UNTIL HE CAUGHT HIS BREATH. HE HAS BEEN EMTYING HIS OSTOMY. HE CHANGED THE FLANGE AND PUT ON A NEW BAG TODAY, HE WASN'T SURE IF HE HAD DONE THAT BEFORE AND HAD TO HAVE QUITE A BIT OF EDUCATION ON HOW TO DO IT. HE STILL SEEMS CONFUSED ABOUT THE OSTOMY AND CONTINUES TO SAY THAT HE CAN JUST COVER IT UP AND THEN HE'LL PASS STOOL THROUGH HIS RECTUM. HE DID PARTICIPATE IN DOING THE WOUND DRESSING, BUT WOULD DEFINATELY BENEFIT FROM DOING IT AGAIN BEFORE HE IS COMPETENT TO DO IT ALONE. EPISODES OF PARANOID CONVERSATION, EPISODES OF FRUSTRATION/ANGER AND EPISODES OF BEING COOPERATIVE AND CALM. BED LOW, CALL LIGHT IN REACH.
--- NOTE | 2022-09-04 04:39 | NUR ---
SUMMARY: NO ACUTE EVENTS OVERNIGHT. PATIENT MANAGED HIS COLOSTOMY AND VOIDED IN URINAL INDEPENDENTLY THROUGHOUT THE WHOLE NIGHT. RECIEVED WOUND CARE TEACHING YESTERDAY WITH DAY SHIFT RN. PATIENT VERY RUDE WITH STAFF THROUGHOUT NIGHT STATING THAT WE NEEDED TO GET OUT OF HIS ROOM BECAUSE HE WAS AGITATED ABOUT THE FLAVOR OF THE [place]. PATIENT YELLED AT NURSE BECAUSE SHE BROUGHT BANANA FLAKES MED IN 1% MILK INSTEAD OF WHOLE MILK. CONTINUOSLY WAS RUDE WHENEVER STAFF MEMBERS ENTERED HIS ROOM FOR CARE CONTINUOUSLY COMPLAINING ABOUT THE DRINKS PROVIDED AT START OF SHIFT. PATIENT AOX4, VSS, PAIN MANAGED ON ORAL MEDS. PATIENT ALSO WAS WALKING INDEPENDENTLY IN HALLWAY WITH WALKER ON DAYSHIFT.
[2022-09-04 05:33] LABS: Albumin, Blood 1.9 g/dL (3.4-5.0); Anion Gap 4 mmol/L (6-16); Blood Urea Nitrogen 37 mg/dL (8-24); Bun/Creatinine Ratio 15.8 (12.0-20.0); CO2, Blood 23 mmol/L (21-32); Calcium, Blood 9.8 mg/dL (8.5-10.1); Chloride, Blood 101 mmol/L (98-108); Creatinine, Blood 2.34 mg/dL (0.60-1.20); Glomerular Filtration Rate 31 (60-); Glucose, Blood 107 mg/dL (70-99); Potassium, Blood 4.8 mmol/L (3.5-5.5); Sodium, Blood 128 mmol/L (136-145)
--- NOTE | 2022-09-04 17:29 | NUR ---
SHIFT SUMMARY NO ACUTE CHANGES DURING SHIFT. PT ALERT AND ORIENTED,CALLS APPROPRIATELY. PT C/O PAIN TO ABD, MEDICATED X 3 WITH PRN MEDS. DRESSING CHANGED BY PT WITH GUIDANCE FROM RN. PT AMBULATING WITH JULIETTEW, BALJEET, WITH PHYSICAL THERAPY. PT PENDING D/C WITHIN THE NEXT DAY OR TWO. WILL CONITNUE TO MONITOR. CALL LIGHT WITHIN REACH.
--- NOTE | 2022-09-05 04:15 | NUR ---
SHIFT MOSTLY UNREMARKABLE. PT HAS NOT SLEPT THROUGH SHIFT MORE THAN VERY SPORADICALLY AND AWAKES SOMEWHAT CONFUSED AND VERY FORGETFUL. PT PERSISTENTLY BELIEVES THAT NOBODY HAS COME TO CHECK ON HIM FOR VERY EXTENDED PERIODS OF TIME DESPITE FREQUENT REASSURANCE THAT STAFF IS IN AND OUT VERY REGULARLY. MOSTLY ORIENTED BUT FORGETFUL WITH REGARDS TO PREVIOUS INTERACTIONS AND WHERE HE PLACES VARIOUS ITEMS IN HIS ROOM. PAIN IS SOMEWHAT WELL MANAGED ON CURRENT REGIMEN SHOWN THROUGH HIS ABILITY TO REST WELL BUT HE REPORTS NEAR 10/10 PAIN AT EVERY PROMPTING DESPITE MEDICATION. CALL LIGHT LEFT WITHIN REACH.
[2022-09-05] MEDS ORDERED: GABA100 PO (11:11)
[2022-09-05] MEDS ORDERED: BANATROL PLUS1 EAC1 PO (11:12)
[2022-09-05] MEDS ORDERED: Acetaminophen325 M1 PO (11:12)
[2022-09-05] MEDS ORDERED: FAMO20 PO (11:13)
[2022-09-05] MEDS ORDERED: SODBIC650 PO (11:22)
[2022-09-05] MEDS ORDERED: OXYC5 PO (11:22)
[2022-09-05] MEDS ORDERED: HYDPAM50 PO (11:22)
[2022-09-05] MEDS ORDERED: LOPE2C PO (11:22)
[2022-09-05] MEDS ORDERED: GABA300 PO (11:23)
[2022-09-05] MEDS ORDERED: TEMA7.5 PO (11:23)
--- NOTE | 2022-09-05 13:15 | NUR ---
DISCHARGE SUMMARY DISCHARGE, FOLLOWUP, AND MEDICATION INSTRUCTIONS GIVEN TO PT. PT VOICED COMPLETE UNDERSTANDING AND HAS NO QUESTIONS AT THIS TIME. PICC LINE REMOVED BY JUNO. DRESSINGS CHANGED BY PT WITH RN ASSISTANCE TODAY. DRESSING SUPPLIES GATHERED FOR PT PER MD REQUEST. PENDING TRANSPORTATION SETUP. WILL CONTINUE TO MONITOR UNTIL PT LEAVES.
== END 2022-09-05 14:54 | disposition home health service (06) | DRG 329 ==
LOC: ER 17:45 → PCU 23:20 → ICUW 23:20 → MEDS 23:20 → SURS 23:20 → MEDS 23:20 → PCU 23:43 → MEDS 07-31 12:37 → SURS 08-01 18:00 → ICUW 08-01 22:00 → SURS 08-06 11:46 → ICUW 08-09 09:59 → SURS 08-11 17:06 → MEDS 08-18 18:31
PROVIDERS: Anesthesiology; Family Medicine; Internal Medicine; Internal Medicine Critical Care Medicine; Internal Medicine Nephrology; Nurse Practitioner Acute Care; Student in an Organized Health Care Education/Training Program; Surgery; ADMIT Student in an Organized Health Care Education/Training Program
PROC: 07BP0ZZ Excision of Spleen, Open Approach (ICD-10-PCS; 2022-08-01)
PROC: 0DTG0ZZ Resection of Left Large Intestine, Open Approach (ICD-10-PCS; 2022-08-01)
PROC: 0DBU0ZZ Excision of Omentum, Open Approach (ICD-10-PCS; 2022-08-01)
PROC: 4A133R1 Monitoring of Arterial Saturation, Peripheral, Percutaneous Approach (ICD-10-PCS; 2022-08-01)
PROC: 3E03329 Introduction of Other Anti-infective into Peripheral Vein, Percutaneous Approach (ICD-10-PCS; 2022-08-01)
PROC: 3E02340 Introduction of Influenza Vaccine into Muscle, Percutaneous Approach (ICD-10-PCS; 2022-08-01)
PROC: 3E0234Z Introduction of Serum, Toxoid and Vaccine into Muscle, Percutaneous Approach (ICD-10-PCS; 2022-08-01)
PROC: 0DTJ0ZZ Resection of Appendix, Open Approach (ICD-10-PCS; 2022-08-01)
PROC: 0DBB0ZZ Excision of Ileum, Open Approach (ICD-10-PCS; 2022-08-01)
PROC: 5A1945Z Respiratory Ventilation, 24-96 Consecutive Hours (ICD-10-PCS; 2022-08-01)
PROC: 02HV33Z Insertion of Infusion Device into Superior Vena Cava, Percutaneous Approach (ICD-10-PCS; 2022-08-01)
PROC: 3E033XZ Introduction of Vasopressor into Peripheral Vein, Percutaneous Approach (ICD-10-PCS; principal; 2022-08-01 17:30)
PROC: 0D1B0Z4 Bypass Ileum to Cutaneous, Open Approach (ICD-10-PCS; 2022-08-02)
PROC: 30233N1 Transfusion of Nonautologous Red Blood Cells into Peripheral Vein, Percutaneous Approach (ICD-10-PCS; 2022-08-16)
DX: K55.039 Acute (reversible) ischemia of large intestine, extent unspecified (principal); A41.9 Sepsis, unspecified organism; J96.01 Acute respiratory failure with hypoxia; R65.21 Severe sepsis with septic shock; K65.1 Peritoneal abscess; K56.609 Unspecified intestinal obstruction, unspecified as to partial versus complete obstruction; E87.21 Acute metabolic acidosis; N17.9 Acute kidney failure, unspecified; K50.90 Crohn's disease, unspecified, without complications; K94.13 Enterostomy malfunction; N18.5 Chronic kidney disease, stage 5; E87.1 Hypo-osmolality and hyponatremia; K55.9 Vascular disorder of intestine, unspecified; E86.0 Dehydration; Z59.00 Homelessness unspecified; D75.838 Other thrombocytosis; K21.9 Gastro-esophageal reflux disease without esophagitis; R73.9 Hyperglycemia, unspecified; D63.1 Anemia in chronic kidney disease; G62.9 Polyneuropathy, unspecified; E83.52 Hypercalcemia; B19.20 Unspecified viral hepatitis C without hepatic coma; F17.210 Nicotine dependence, cigarettes, uncomplicated; M54.9 Dorsalgia, unspecified; E16.2 Hypoglycemia, unspecified; E55.9 Vitamin D deficiency, unspecified; Z23 Encounter for immunization; E87.5 Hyperkalemia; N18.30 Chronic kidney disease, stage 3 unspecified; G89.29 Other chronic pain; Z90.49 Acquired absence of other specified parts of digestive tract; Z98.890 Other specified postprocedural states; Z79.899 Other long term (current) drug therapy; Z78.1 Physical restraint status; Z51.5 Encounter for palliative care
CPT/HCPCS: 36415; 36430; 36556; 36569; 36600; 51702; 71045; 74022; 74176; 74177; 80048; 80053; 80069; 81001; 81240; 82248; 82306; 82435; 82533; 82570; 82803; 82947; 83036; 83090; 83605; 83690; 83735; 83970; 84100; 84132; 84145; 84156; 84165; 84166; 84295; 84478; 84484; 84630; 85014; 85018; 85025; 85027; 85240; 85300; 85303; 85306; 85307; 85613; 85730; 85732; 86146; 86147; 86850; 86900; 86901; 86923; 87040; 87070; 87075; 87077; 87086; 87186; 87205; 87493; 87507; 88305; 88307; 90670; 90686; 90715; 90734; 93005; 93010; 94002; 94003; 94644; 94660; 94664; 94760; 94762; 96361-59; 96365-59; 96375-59; 96376-59; 97110; 97116; 97129; 97162; 97164; 97165; 97166; 97530; 97535; 99285-25; A9270; C1751; J0330; J0360; J0610; J1644; J1815; J1940; J2060; J2185; J2250; J2405; J2543; J2550; J2704; J2765; J2795; J3010; J3411; J3475; J7030; J7042; J7050; J7060; J7070; J7120; J7121; J7799; P9016; P9047; Q9967

== ENCOUNTER 2022-09-06 11:48 | Emergency (ER) | payer OTHER ==
[~2022-09-06] VITALS: Ht 182.9 cm; Wt 93.0 kg
[~2022-09-06 11:48] MED LIST changes: +Acetaminophen325 M1 PO; +BANATROL PLUS1 EAC1 PO; +FAMO20 PO; +GABA100 PO; +GABA300 PO; +HYDPAM50 PO; +LOPE2C PO; +SODBIC650 PO; +TEMA7.5 PO
[2022-09-06 15:16] LABS: Influenza A, PCR NEGATIVE (NEGATIVE); Influenza B, PCR NEGATIVE (NEGATIVE); Resp Syncytial Virus, PCR NEGATIVE (NEGATIVE); SARS-Cov-2 (COVID-19) PCR, MMC NEGATIVE (NEGATIVE)
== END 2022-09-07 11:27 | disposition home or self-care (01) ==
LOC: ER 11:48
PROVIDERS: Emergency Medicine
DX: R53.1 Weakness (principal); Z93.3 Colostomy status; Z59.00 Homelessness unspecified; I10 Essential (primary) hypertension; F17.210 Nicotine dependence, cigarettes, uncomplicated; Z79.899 Other long term (current) drug therapy
CPT/HCPCS: 0241U; 97162; A9270

== ENCOUNTER 2022-09-11 20:04 | Inpatient (IN) | payer OTHER ==
[~2022-09-11] VITALS: Ht 182.9 cm; Wt 59.0 kg
[~2022-09-11 20:04] MED LIST changes: -MELA3 PO; -Nicoderm Cq1 EACH TOP; -SIME80CH PO
[2022-09-11 20:28] LABS: Hematocrit 34.5 % (37.0-53.0); Hemoglobin 11.1 g/dL (13.5-17.5); Mean Corpuscular HGB Conc 32.2 g/dL (31.5-36.5); Mean Corpuscular Volume 84 fL (80-100); NRBC ABSOLUTE 0.02 K/mm3 (0.00-0.02); NRBC Auto 0.1 /100 WBC (0.0-0.2); Platelet Count 925 K/mm3 (150-400); RDW Coefficient Variation 17.3 % (11.7-14.2); RDW Standard Deviation 52.9 fL (35.1-46.3); Red Blood Cell Count 4.11 M/mm3 (4.30-5.90)
[2022-09-11 20:57] LABS: International Normalized Ratio 1.14; Prothrombin Time Results 11.9 Sec (9.7-11.5)
[2022-09-11 21:07] LABS: Albumin, Blood 2.5 g/dL (3.4-5.0); Albumin/Globulin Ratio 0.5 (0.8-1.8); Bilirubin, Direct 0.3 mg/dL (0.0-0.3); Bilirubin, Indirect 0.5 mg/dL (0.1-0.7); Bilirubin, Total 0.8 mg/dL (0.1-1.0); Bun/Creatinine Ratio 18.8 (12.0-20.0); Creatinine, Blood 2.82 mg/dL (0.60-1.20); Globulin, Blood 5.3 g/dL (2.2-4.0); Phosphorus, Blood 3.2 mg/dL (2.5-4.9); Potassium, Blood 5.9 mmol/L (3.5-5.5); Total Protein, Blood 7.8 g/dL (6.4-8.2)
[2022-09-11 22:03] LABS: BAND PERCENT MAN 7 % (0-8); BASOPHILS PERCENT MAN 0 % (0-2); EOSINOPHILS PERCENT MAN 0 % (0-6); LYMPHOCYTES ABSOLUTE MAN 9.48 K/mm3 (0.84-5.20); LYMPHOCYTES PERCENT MAN 34 % (21-46); METAMYELOCYTE ABSOLUTE MAN 0.27 K/mm3 (0.00-0.00); METAMYELOCYTE PERCENT MAN 1 % (0-0); MONOCYTES ABSOLUTE MAN 3.62 K/mm3 (0.16-1.47); MONOCYTES PERCENT MAN 13 % (4-13); MYELOCYTE ABSOLUTE MAN 0.55 K/mm3 (0.00-0.00); MYELOCYTE PERCENT MAN 2 % (0-0); NEUTROPHILS ABSOLUTE MAN 13.95 K/mm3 (1.96-9.15); SEG NEUTROPHILS PERCENT MAN 43 % (41-73); TOTAL CELLS COUNTED 100
[2022-09-11 22:07] LABS: Source, Urine Voided
[2022-09-11 22:09] LABS: Bilirubin, Urine Neg (Neg); Blood, Urine Neg (Neg); Glucose Qualitative, Urine Neg (Neg); Ketones, Urine Neg (Neg); Leukocyte Esterase, Urine Neg (Neg); Nitrite, Urine Neg (Neg); Protein, Urine 1+ (Neg); Urobilinogen, Urine 1+ (Normal); pH, Urine 6.5 (5.0-8.0)
[2022-09-11 22:15] LABS: Appearance, Urine Clear (Clear); Color, Urine Yellow (P-Yellow)
[2022-09-12] MEDS ORDERED: BANATROL PLUS1 EAC1 PO (02:20)
[2022-09-12] MEDS ORDERED: HYDPAM50 PO (02:21)
[2022-09-12] MEDS ORDERED: LOPE2C PO (02:21)
[2022-09-12] MEDS ORDERED: NARCAN4 M1 (02:22)
[2022-09-12] MEDS ORDERED: ONDA4ODT MM (02:22)
[2022-09-12 05:11] LABS: BASOPHILS ABSOLUTE AUTO 0.15 K/mm3 (0.00-0.23); BASOPHILS PERCENT AUTO 1 % (0-2); EOSINOPHILS ABSOLUTE AUTO 0.12 K/mm3 (0.00-0.68); EOSINOPHILS PERCENT AUTO 0 % (0-6); Hematocrit 31.8 % (37.0-53.0); Hemoglobin 10.5 g/dL (13.5-17.5); IMMATURE GRAN ABSOLUTE AUTO 0.48 K/mm3 (0.00-0.10); IMMATURE GRAN PERCENT AUTO 2 % (0-1); LYMPHOCYTES PERCENT AUTO 27 % (21-46); MONOCYTES ABSOLUTE AUTO 4.55 K/mm3 (0.16-1.47); MONOCYTES PERCENT AUTO 15 % (4-13); Mean Corpuscular HGB 27.3 pg (26.0-34.0); Mean Corpuscular Volume 83 fL (80-100); Mean Platelet Volume 9.1 fL (9.1-12.4); NEUTROPHILS ABSOLUTE AUTO 16.51 K/mm3 (1.96-9.15); NEUTROPHILS PERCENT AUTO 55 % (41-73); NRBC ABSOLUTE 0.03 K/mm3 (0.00-0.02); NRBC Auto 0.1 /100 WBC (0.0-0.2); Platelet Count 780 K/mm3 (150-400); RDW Coefficient Variation 17.4 % (11.7-14.2); RDW Standard Deviation 51.7 fL (35.1-46.3); Red Blood Cell Count 3.84 M/mm3 (4.30-5.90); White Blood Cell Count 29.81 K/mm3 (4.00-11.30)
--- NOTE | 2022-09-12 05:19 | NUR ---
SENIOR TAX SPECIALIST SUMMARY VSS. ELEVATED WBC. ADMITTED TO FLOOR EARLIER IN THE SHIFT WITH DX OF SEPSIS AND SBO. ALERT AND ORIENTED, MULTIPLE REQUESTS. PAIN MEDS GIVEN RE ABD. NOTE COLOSTOMY AND OPEN WOUND OF ABD, PACKED WITH GAUZE. OPEN AREA WAS OBSERVED IN PRIOR ADMISSION - SEE HX FOR DETAILS. SEE PIC FOR REFERENCE. DRESSING COVERING SAID WOUND. LR INFUSING AT 100 ML/HR. HAS BEEN RESTING QUIETLY WITH OCCASIONAL INTERRUPTIONS SINCE PAIN MED. ORIENTED TO CALL LIGHT. CALL LIGHT IN REACH. WILL CONTINUE TO MONITOR
[2022-09-12 05:30] LABS: Albumin, Blood 2.1 g/dL (3.4-5.0); Albumin/Globulin Ratio 0.4 (0.8-1.8); Bilirubin, Total 0.9 mg/dL (0.1-1.0); Bun/Creatinine Ratio 17.6 (12.0-20.0); Calcium, Blood 9.7 mg/dL (8.5-10.1); Creatinine, Blood 2.79 mg/dL (0.60-1.20); Globulin, Blood 4.7 g/dL (2.2-4.0); Potassium, Blood 5.3 mmol/L (3.5-5.5); Total Protein, Blood 6.8 g/dL (6.4-8.2)
--- NOTE | 2022-09-12 16:56 | NUR ---
DAYNA Guillermo/BLAKE3-[address] KWONG IN TO SEE PATIENT AND ABDOMINAL DRESSING CHANGED AND INSTRUCTED TO DO DAILY DRESSING CHANGES, SEE ORDERS. VSS, ON RA. DENIES ANY NAUSEA, RATES PAIN 7-10/10. MORPHINE GIVEN X2 TO TREAT. PATIENT ADVANCED TO CLEARS AND ORDERS GIVEN TO ADVANCE DIET TOLERATED TO REGULAR. OSTOMY WITH SMALL AMOUNT OF LIGHT BROWN LIQUID OUTPUT. PATIENT USING URINAL TO VOID. NS INFUSING AT 100ML/HR. PATIENT COOPERATIVE WITH CARE AND CALLS APPROPRIATELY FOR ASSISTANCE.
--- NOTE | 2022-09-13 03:22 | NUR ---
LOCK EXPERT SUMMARY VSS. IVF OF NS INFUSING AT 100 ML/HR. ABD PAIN CONTINUES, VOICED 10:10, REQUESTED PAIN MEDS (MORPHINE) NUMEROUS TIMES, WAS SCHEDULED Q4P, BUT DIDNT SEEM TO COVER FOR 4 HRS, AND WAS CONTINUING TO VOICE SEVERE PAIN. MD WAS NOTIFIED AND ORDERS FOR FENTANYL 25-50 MCG Q 2H PRN, MED ADMINISTERED, SEEMS TO BE MEETING PT NEEDS IT IS GIVEN 2 HRS APART, VS 4. ALERT AND ORIENTED, DRESSING OF ABD INTACT, CDI. VOIDING DARK, CLOUDY. COLOSTOMY INTACT. AWAKE AT INTERVALS, SEEMS TO GET MOST SLEEP AFTER ANALGESIC ADMIN. CALL LIGHT IN REACH. WILL CONTINUE TO MONITOR
[2022-09-13 06:07] LABS: BASOPHILS ABSOLUTE AUTO 0.12 K/mm3 (0.00-0.23); BASOPHILS PERCENT AUTO 0 % (0-2); EOSINOPHILS ABSOLUTE AUTO 0.02 K/mm3 (0.00-0.68); EOSINOPHILS PERCENT AUTO 0 % (0-6); Hematocrit 31.4 % (37.0-53.0); Hemoglobin 10.2 g/dL (13.5-17.5); Mean Corpuscular HGB 27.8 pg (26.0-34.0); Mean Corpuscular HGB Conc 32.5 g/dL (31.5-36.5); Mean Corpuscular Volume 86 fL (80-100); Mean Platelet Volume 9.4 fL (9.1-12.4); Platelet Count 896 K/mm3 (150-400); RDW Coefficient Variation 17.6 % (11.7-14.2); RDW Standard Deviation 53.7 fL (35.1-46.3); Red Blood Cell Count 3.67 M/mm3 (4.30-5.90); White Blood Cell Count 28.89 K/mm3 (4.00-11.30)
[2022-09-13 06:13] LABS: IMMATURE GRAN ABSOLUTE AUTO 0.31 K/mm3 (0.00-0.10); IMMATURE GRAN PERCENT AUTO 1 % (0-1); LYMPHOCYTES ABSOLUTE AUTO 5.52 K/mm3 (0.84-5.20); LYMPHOCYTES PERCENT AUTO 19 % (21-46); MONOCYTES ABSOLUTE AUTO 2.68 K/mm3 (0.16-1.47); MONOCYTES PERCENT AUTO 9 % (4-13); NEUTROPHILS ABSOLUTE AUTO 20.24 K/mm3 (1.96-9.15); NEUTROPHILS PERCENT AUTO 70 % (41-73)
[2022-09-13 06:32] LABS: Albumin, Blood 2.2 g/dL (3.4-5.0); Albumin/Globulin Ratio 0.5 (0.8-1.8); Bilirubin, Total 0.8 mg/dL (0.1-1.0); Bun/Creatinine Ratio 18.5 (12.0-20.0); Calcium, Blood 10.2 mg/dL (8.5-10.1); Creatinine, Blood 2.33 mg/dL (0.60-1.20); Globulin, Blood 4.7 g/dL (2.2-4.0); Total Protein, Blood 6.9 g/dL (6.4-8.2)
--- NOTE | 2022-09-13 12:54 | NUR ---
PT C/O PAIN AND "GAS" IN ABD T/O MORNING. MEDICATED PER EMAR. REPOSITIONED AND WARM BLANKET APPLIED TO ABD BUT PT VERBALIZED LITTLE RELIEF WITH INTERVENTIONS. LATER IN THE MORNING, PT VOMMITED A LARGE AMOUNT (1200ML) OF BROWN LIQUIED EMESIS. PT VERBAILZED FEELING BETTER. PT IS CURRENTLY RESTING AND APPEARS TO BE SLEEPING. EVEN, UNLABORED RESPIRATIONS NOTED.
--- NOTE | 2022-09-13 14:22 | NUR ---
CALLED DR MACIAS TO REPORT THAT PT VOMITED 1200ML OF BROWN LIQUID AND THAT PT'S COLOSTOMY BAG HAS HAD LITTLE OUTPUT. DR MACIAS ADVISED THIS NURSE TO CALL DR KWONG. THIS NURSE INFORMED DR KWONG OF EPISODE OF VOMITING AND LITTLE COLOSTOMY OUTPUT. DR KWONG DID NOT RECOMMEND PLACING NG TUBE AT THIS TIME. DR KWONG STATED HE WOULD NOTIFY DR ZENDEJAS.
--- NOTE | 2022-09-13 16:04 | NUR ---
SHIFT SUMMARY PT A&OX4 AND COOPERATIVE OF CARE. PT VERBAILZED SEVERE PAIN IN ABD AT START OF SHIFT. REPOSITIONED, HEAT APPLIED AND MEDICATIONS GIVEN PER EMAR WITH LITTLE RELIEF. PT VOMITED 1200ML AT 1130 AND STATED FEELING BETTER. PT HAS BEEN RESTING PEACFULLY SINCE. LITTLE OUTPUT FROM COLOSTOMY. DR MACIAS AND DR KWONG NOTIFIED AND NOTE WRITTEN. PT ATE VERY LITTLE OF CLEAR LIQUIDS TODAY. USES URINAL AND CHANGES COLOSTOMY INDEPENDENTLY. BED IN LOWEST POSITION AND CALL LIGHT IN REACH.
--- NOTE | 2022-09-14 04:02 | NUR ---
SHIFT MOSTLY UNREMARKABLE. EARLY IN SHIFT, PATIENT VOMITED 900MLS OF EMESIS. DARK BROWN COLOR. ALMOST ENTIRELY LIQUID. PT NOTES HE RECENTLY DRANK A LOT OF COKE AND ATE DINNER WHICH MAY HAVE CONTRIBUTED. PER DAY SHIFT REPORT, PT LAST VOMITED 1200MLS AFTER EATING BREAKFAST. SPOKE WITH HOSPITALIST AND ACQUIRED ORDER FOR NPO STATUS DUE TO INTOLERANCE OF EATING FOOD AT THIS TIME. PT NOTIFIED. ADVISED PT HE CAN DISCUSS WITH DOCTOR IN MORNING TO ASSESS TOLERANCE AND DIET CHANGE. PT IS UNDERSTANDING. PAIN ADEQUATELY MANAGED ON CURRENT REGIMEN. PT REPORTS ABDOMINAL PAIN AND TENDERNESS THAT IS MOSTLY ALLEVIATED WITH MEDICATION PER EMAR. COLOSTOMY CONTINUES TO BE SELF MANAGED. AOX3, COOPERATIVE WITH CARE. MILDLY IRRITABLE. CALLS APPROPRIATELY. NS RUNNING @ 100 MLS/HR THROUGHOUT SHIFT. CBG CHECK @ ABOUT 0345 WAS ~91MG/DL. PATIENT ASYMPTOMATIC IN THIS SENSE. CALL LIGHT LEFT WITHIN REACH.
[2022-09-14 05:34] LABS: Hematocrit 27.9 % (37.0-53.0); Hemoglobin 8.8 g/dL (13.5-17.5); Mean Corpuscular HGB 27.7 pg (26.0-34.0); Mean Corpuscular HGB Conc 31.5 g/dL (31.5-36.5); Mean Corpuscular Volume 88 fL (80-100); Mean Platelet Volume 9.4 fL (9.1-12.4); NRBC ABSOLUTE 0.02 K/mm3 (0.00-0.02); NRBC Auto 0.1 /100 WBC (0.0-0.2); Platelet Count 799 K/mm3 (150-400); RDW Coefficient Variation 17.7 % (11.7-14.2); RDW Standard Deviation 56.5 fL (35.1-46.3); Red Blood Cell Count 3.18 M/mm3 (4.30-5.90)
[2022-09-14 06:19] LABS: Albumin, Blood 1.9 g/dL (3.4-5.0); Albumin/Globulin Ratio 0.4 (0.8-1.8); Bilirubin, Total 0.5 mg/dL (0.1-1.0); Bun/Creatinine Ratio 17.8 (12.0-20.0); Calcium, Blood 9.6 mg/dL (8.5-10.1); Creatinine, Blood 1.8 mg/dL (0.60-1.20); Globulin, Blood 4.3 g/dL (2.2-4.0); Magnesium, Blood 1.7 mg/dL (1.6-2.4); Phosphorus, Blood 2.9 mg/dL (2.5-4.9); Potassium, Blood 4.2 mmol/L (3.5-5.5); Total Protein, Blood 6.2 g/dL (6.4-8.2)
[2022-09-14 08:41] LABS: BAND PERCENT MAN 2 % (0-8); BASOPHILS PERCENT MAN 0 % (0-2); EOSINOPHILS PERCENT MAN 0 % (0-6); LYMPHOCYTES ABSOLUTE MAN 7.21 K/mm3 (0.84-5.20); LYMPHOCYTES PERCENT MAN 39 % (21-46); MONOCYTES ABSOLUTE MAN 2.22 K/mm3 (0.16-1.47); MONOCYTES PERCENT MAN 12 % (4-13); NEUTROPHILS ABSOLUTE MAN 9.06 K/mm3 (1.96-9.15); SEG NEUTROPHILS PERCENT MAN 47 % (41-73); TOTAL CELLS COUNTED 100
--- NOTE | 2022-09-14 15:47 | NUR ---
EVENING NOTE PT RESTING QIETLY. NEEDS SIGNIFICANT EDUCATION WITH REINFORCMENT OF HIS HEALTH LITERACY. VSS. VOIDING. BSC MOSTLY SUCCESSFUL WITH HIM NOT VOIDING ON THE FLOOR. DISCUSSED WITH PT ABOUT DECREASING FLUID INTAKE TO ALLOW FOR GREATER NEGATIVE BALANCE. HE HAS BEEN SELF LIMITING HIS FLUIDS. LEGA LOOK SLIGHTLY LESS SWOLLEN. HE IS KEEPING HIS LEGS ELEVATED WHENHE ISN'T SITTING ONTHE BSC. FAMILY HAS BEEN ENCOURAGED TO NOT BRING HIM IN OUTSIDE FOOD AND DRINK. BLOOS SUGARS STABLE. 2L N/C. VOICE STILL BREATHLESS BUT LUNGS SOUNDS IMPROVED. CONTINUE POC.
[2022-09-15 05:30] LABS: BASOPHILS ABSOLUTE AUTO 0.05 K/mm3 (0.00-0.23); BASOPHILS PERCENT AUTO 0 % (0-2); EOSINOPHILS ABSOLUTE AUTO 0.11 K/mm3 (0.00-0.68); EOSINOPHILS PERCENT AUTO 1 % (0-6); Hematocrit 26.1 % (37.0-53.0); Hemoglobin 7.9 g/dL (13.5-17.5); IMMATURE GRAN ABSOLUTE AUTO 0.29 K/mm3 (0.00-0.10); IMMATURE GRAN PERCENT AUTO 2 % (0-1); LYMPHOCYTES ABSOLUTE AUTO 5.05 K/mm3 (0.84-5.20); LYMPHOCYTES PERCENT AUTO 32 % (21-46); MONOCYTES ABSOLUTE AUTO 2.87 K/mm3 (0.16-1.47); MONOCYTES PERCENT AUTO 18 % (4-13); Mean Corpuscular HGB 27.4 pg (26.0-34.0); Mean Corpuscular HGB Conc 30.3 g/dL (31.5-36.5); Mean Corpuscular Volume 91 fL (80-100); Mean Platelet Volume 9.2 fL (9.1-12.4); NEUTROPHILS ABSOLUTE AUTO 7.34 K/mm3 (1.96-9.15); NEUTROPHILS PERCENT AUTO 47 % (41-73); NRBC ABSOLUTE 0.04 K/mm3 (0.00-0.02); NRBC Auto 0.3 /100 WBC (0.0-0.2); Platelet Count 734 K/mm3 (150-400); RDW Coefficient Variation 18.3 % (11.7-14.2); RDW Standard Deviation 60.3 fL (35.1-46.3); Red Blood Cell Count 2.88 M/mm3 (4.30-5.90); White Blood Cell Count 15.71 K/mm3 (4.00-11.30)
[2022-09-15 06:27] LABS: Albumin, Blood 1.8 g/dL (3.4-5.0); Anion Gap 4 mmol/L (6-16); Blood Urea Nitrogen 22 mg/dL (8-24); Bun/Creatinine Ratio 15.2 (12.0-20.0); CO2, Blood 22 mmol/L (21-32); Calcium, Blood 9.7 mg/dL (8.5-10.1); Chloride, Blood 106 mmol/L (98-108); Creatinine, Blood 1.45 mg/dL (0.60-1.20); Glomerular Filtration Rate 55 (60-); Glucose, Blood 78 mg/dL (70-99); Magnesium, Blood 1.5 mg/dL (1.6-2.4); Phosphorus, Blood 2.3 mg/dL (2.5-4.9); Potassium, Blood 4.1 mmol/L (3.5-5.5); Sodium, Blood 132 mmol/L (136-145)
--- NOTE | 2022-09-15 07:11 | NUR ---
SHIFT SUMMARY PATIENT ALERT AND ORIENTED. HAD NO COMPLAINTS OF PAIN OR SHORTNESS OF BREATH. OSTOMY HAD BROWN LIQUID OUTPUT, REMAINED NPO OVERNIGHT BUT IS REALLY EAGER TO START EATING AGAIN. VITAL SIGNS STABLE. NO ACUTE ISSUES NOTED OVERNIGHT. CALL LIGHT WITHIN REACH.
[2022-09-15 10:54] LABS: SARS-Cov-2 (COVID-19) PCR, MMC NEGATIVE (NEGATIVE)
--- NOTE | 2022-09-15 12:50 | NUR ---
RN NOTE MR BROWN HAS HAD LOOSE LIQUID STOOL TO OSTOMY. HE CHANGED HIS OWN OSTOMY BAG THIS MORNING, BUT NEEDED EDUCATION ON HOW TO CHANGE THE FLANGE. ABDOMINAL WOUND CARE DONE BY RN. PT ABLE TO ANSWER ORIENTATION QUESTIONS BUT DOES SEEM FORGETFUL. UP TO CHAIR TWICE THIS MORNING AND ENCOURAGED TO AMBULATE IN THE HALLS, BUT SO FAR HE HAS REFUSED. WILL CONTINUE TO REQUEST FOR HIM TO AMBULATE.
--- NOTE | 2022-09-15 15:08 | NUR ---
RN NOTE REPORT GIVEN TO NURSE CARLOS AT [facility]. TRANSPORT BOOKED FOR 5PM.
[2022-09-15] MEDS ORDERED: SIME80CH PO (15:42)
[2022-09-15] MEDS ORDERED: Nicoderm Cq1 EACH TOP (15:42)
--- NOTE | 2022-09-15 17:28 | NUR ---
DISCHARGE NOTE DISCHARGED TO [facility] WITH WHEELCHAIR TRANSPORT AT 1728HRS. PIV REMOVED PRIOR TO DISCHARGE. PT HAD NO C/O PAIN OR SOB AT TIME OF DISCHARGE. HE HAS BEEN EMPTYING HIS OSTOMY, LIQUID BROWN STOOL. NO OTHER COMPLAINTS OR CONCERNS VOICED.
== END 2022-09-15 17:32 | DRG 389 ==
LOC: ER 20:04 → SURS 09-12 02:16 → MEDS 09-12 02:16
PROVIDERS: Emergency Medicine; Family Medicine; Internal Medicine; ADMIT Internal Medicine
DX: K56.609 Unspecified intestinal obstruction, unspecified as to partial versus complete obstruction (principal); E44.0 Moderate protein-calorie malnutrition; E87.1 Hypo-osmolality and hyponatremia; K50.90 Crohn's disease, unspecified, without complications; N18.4 Chronic kidney disease, stage 4 (severe); Z68.1 Body mass index [BMI] 19.9 or less, adult; Z20.822 Contact with and (suspected) exposure to COVID-19; Z28.21 Immunization not carried out because of patient refusal; F15.10 Other stimulant abuse, uncomplicated; F14.10 Cocaine abuse, uncomplicated; G62.9 Polyneuropathy, unspecified; F17.210 Nicotine dependence, cigarettes, uncomplicated; M54.9 Dorsalgia, unspecified; G89.29 Other chronic pain; I12.9 Hypertensive chronic kidney disease with stage 1 through stage 4 chronic kidney disease, or unspecified chronic kidney disease; E87.8 Other disorders of electrolyte and fluid balance, not elsewhere classified; K21.9 Gastro-esophageal reflux disease without esophagitis; G47.00 Insomnia, unspecified; R74.8 Abnormal levels of other serum enzymes; Z86.19 Personal history of other infectious and parasitic diseases; Z90.49 Acquired absence of other specified parts of digestive tract; Z79.899 Other long term (current) drug therapy
CPT/HCPCS: 36415; 71045; 74177; 80053; 80069; 82248; 82947; 83605; 83735; 84100; 84145; 85025; 85610; 85730; 87040; 93005; 93010; 96361; 96365-59; 96375; 96376; 99285-25; A9270; J1650; J2270; J2405; J2543; J3010; J3475; J7030; J7120; Q9967; U0004

== ENCOUNTER → 2022-09-11 | Outpatient (CLI) | payer OTHER ==
[~2022-09-11] MED LIST changes: +MELA3 PO; +Nicoderm Cq1 EACH TOP; +SIME80CH PO
[2022-09-11 13:28] LABS: BASOPHILS PERCENT AUTO 0 % (0-2); EOSINOPHILS ABSOLUTE AUTO 0.12 K/mm3 (0.00-0.68); EOSINOPHILS PERCENT AUTO 1 % (0-6); Hematocrit 36.2 % (37.0-53.0); Hemoglobin 11.5 g/dL (13.5-17.5); IMMATURE GRAN ABSOLUTE AUTO 0.53 K/mm3 (0.00-0.10); IMMATURE GRAN PERCENT AUTO 2 % (0-1); LYMPHOCYTES ABSOLUTE AUTO 6.69 K/mm3 (0.84-5.20); LYMPHOCYTES PERCENT AUTO 27 % (21-46); MONOCYTES ABSOLUTE AUTO 3.88 K/mm3 (0.16-1.47); MONOCYTES PERCENT AUTO 16 % (4-13); Mean Corpuscular HGB 26.9 pg (26.0-34.0); Mean Corpuscular HGB Conc 31.8 g/dL (31.5-36.5); Mean Corpuscular Volume 85 fL (80-100); Mean Platelet Volume 9.7 fL (9.1-12.4); NEUTROPHILS ABSOLUTE AUTO 13.11 K/mm3 (1.96-9.15); NEUTROPHILS PERCENT AUTO 54 % (41-73); NRBC ABSOLUTE 0.03 K/mm3 (0.00-0.02); NRBC Auto 0.1 /100 WBC (0.0-0.2); Platelet Count 979 K/mm3 (150-400); RDW Coefficient Variation 17.5 % (11.7-14.2); RDW Standard Deviation 54.2 fL (35.1-46.3); Red Blood Cell Count 4.27 M/mm3 (4.30-5.90); White Blood Cell Count 24.43 K/mm3 (4.00-11.30)
[2022-09-11 13:51] LABS: Albumin, Blood 2.6 g/dL (3.4-5.0); Albumin/Globulin Ratio 0.5 (0.8-1.8); Bilirubin, Total 0.8 mg/dL (0.1-1.0); Bun/Creatinine Ratio 17.8 (12.0-20.0); Calcium, Blood 10.4 mg/dL (8.5-10.1); Creatinine, Blood 2.7 mg/dL (0.60-1.20); Globulin, Blood 5.5 g/dL (2.2-4.0); Potassium, Blood 5.6 mmol/L (3.5-5.5); Total Protein, Blood 8.1 g/dL (6.4-8.2)
== END | disposition home or self-care (01) ==
LOC: LAB RH 12:55 → EDSTATUS 15:23
PROVIDERS: Internal Medicine
DX: A09 Infectious gastroenteritis and colitis, unspecified (principal)
CPT/HCPCS: 80053; 85025

== ENCOUNTER 2022-09-19 18:13 | Inpatient (IN) | payer OTHER ==
[~2022-09-19] VITALS: Ht 180.3 cm; Wt 71.0 kg
[~2022-09-19 18:13] MED LIST changes: -MELA3 PO
[2022-09-19 22:13] LABS: Source, Urine Clean Catch
[2022-09-19 22:36] LABS: Bun/Creatinine Ratio 11.9 (12.0-20.0); Creatinine, Blood 3.11 mg/dL (0.60-1.20); Potassium, Blood 6.1 mmol/L (3.5-5.5)
[2022-09-19 23:09] LABS: Bilirubin, Urine Neg (Neg); Blood, Urine Neg (Neg); Glucose Qualitative, Urine Neg (Neg); Ketones, Urine Neg (Neg); Leukocyte Esterase, Urine Neg (Neg); Nitrite, Urine Neg (Neg); Protein, Urine 2+ (Neg); Specific Gravity, Urine 1.025 (1.003-1.022); Urobilinogen, Urine NORM (Normal)
[2022-09-19 23:15] LABS: Calcium, Ionized (POC) 0.91 mmol/L (1.10-1.46); Chloride (POC) 112 mmol/L (98-108); Creatinine (POC) 2.2 mg/dL (0.8-1.3); Glucose (ISTAT POC) 109 mg/dL (70-99); Hemoglobin (POC) 7.8 g/dL (13.5-17.5); Potassium (POC) 3.5 mmol/L (3.5-5.5); Sodium (POC) 138 mmol/L (135-148); Total CO2 (POC) 14 mmol/L (21-32)
[2022-09-19 23:18] LABS: Appearance, Urine Hazy (Clear); Color, Urine Yellow (P-Yellow)
[2022-09-19 23:20] LABS: Amorphous Light (0-Heavy); Bacteria Mod /hpf; Granular Casts 0-2 /lpf (0); Hyaline Casts 0-2 /lpf (0-2); Red Blood Cells, Urine 0-2 /hpf (0-2); Squamous Epithelial Cells Few /hpf (Few)
[2022-09-20 05:10] LABS: Albumin, Blood 2.5 g/dL (3.4-5.0); Albumin/Globulin Ratio 0.5 (0.8-1.8); Bilirubin, Total 0.6 mg/dL (0.1-1.0); Bun/Creatinine Ratio 13.1 (12.0-20.0); Calcium, Blood 10.5 mg/dL (8.5-10.1); Creatinine, Blood 3.05 mg/dL (0.60-1.20); Globulin, Blood 5.4 g/dL (2.2-4.0); Magnesium, Blood 1.7 mg/dL (1.6-2.4); Potassium, Blood 5.4 mmol/L (3.5-5.5); Total Protein, Blood 7.9 g/dL (6.4-8.2)
--- NOTE | 2022-09-20 05:46 | NUR ---
SHIFT SUMMARY PT ADMITTED AT 0045 - PT A&O X 4, REPORT FROM ED RN THAT PT REQUESTED PAIN MEDICATION AND HOSPITALIST ORDERING OXYCODONE- MEDICATED WITH PAIN MEDICATION PER ORDER- PT HAS ABDOMEN INCISION, BILAT DRY BOGGY HEELS, AND SCAB ON BUTTOCKS ON ADMISSION- PT ILESTOMY HAD LARGE AMOUNT OF OUTPUT T/O NIGHT- PT ABLE TO DUMP SELF- LAB IN ROOM AND ATTEMPTING MULTIPLE TIMES TO DRAW BLOOD- BED LOW POSITION, CALL LIGHT WITHIN REACH
[2022-09-20 10:49] LABS: Hematocrit 35.5 % (37.0-53.0); Hemoglobin 11.2 g/dL (13.5-17.5); Mean Corpuscular HGB 27.9 pg (26.0-34.0); Mean Corpuscular HGB Conc 31.5 g/dL (31.5-36.5); Mean Corpuscular Volume 88 fL (80-100); Mean Platelet Volume 9.1 fL (9.1-12.4); Platelet Count 687 K/mm3 (150-400); RDW Coefficient Variation 18.8 % (11.7-14.2); RDW Standard Deviation 60.6 fL (35.1-46.3); Red Blood Cell Count 4.02 M/mm3 (4.30-5.90); White Blood Cell Count 25.89 K/mm3 (4.00-11.30)
[2022-09-20 12:30] LABS: BAND PERCENT MAN 4 % (0-8); BASOPHILS ABSOLUTE MAN 0.25 K/mm3 (0.00-0.23); BASOPHILS PERCENT MAN 1 % (0-2); EOSINOPHILS PERCENT MAN 0 % (0-6); LYMPHOCYTES ABSOLUTE MAN 3.88 K/mm3 (0.84-5.20); LYMPHOCYTES PERCENT MAN 15 % (21-46); MONOCYTES ABSOLUTE MAN 4.14 K/mm3 (0.16-1.47); MONOCYTES PERCENT MAN 16 % (4-13); NEUTROPHILS ABSOLUTE MAN 17.34 K/mm3 (1.96-9.15); PLASMA CELL ABSOLUTE MAN 0.25 K/mm3 (0.00-0.00); PLASMA CELLS PERCENT MAN 1 % (0-0); SEG NEUTROPHILS PERCENT MAN 63 % (41-73); TOTAL CELLS COUNTED 100
[2022-09-20 13:45] LABS: Campylobacter Sp Not Detected (NOT DETECT); Plesiomonas Shigelloides Not Detected (NOT DETECT); Salmonella Sp Not Detected (NOT DETECT); Vibrio Cholerae Not Detected (NOT DETECT); Vibrio Sp Not Detected (NOT DETECT); Yersinia Enterocolitica Not Detected (NOT DETECT)
[2022-09-20 13:46] LABS: Adenovirus F 40/41 Not Detected (NOT DETECT); Astrovirus Not Detected (NOT DETECT); Cryptosporidium Not Detected (NOT DETECT); Cyclospora Cayetanensis Not Detected (NOT DETECT); E. Coli O157 Not Detected (NOT DETECT); Entamoeba Histolytica Not Detected (NOT DETECT); Enteroaggregative E. coli-EAEC Not Detected (NOT DETECT); Enteropathogenic E. coli-EPEC Not Detected (NOT DETECT); Enterotoxigenic E. coli-ETEC Not Detected (NOT DETECT); Giardia Lamblia Not Detected (NOT DETECT); Norovirus GI/GII Not Detected (NOT DETECT); Rotavirus A Not Detected (NOT DETECT); Sapovirus Not Detected (NOT DETECT); Shiga Toxin-prod E. coli-STEC Not Detected (NOT DETECT); Shigella/Enteroin E. coli-EIEC Not Detected (NOT DETECT)
[2022-09-20 14:31] LABS: Calcium, Blood 10.4 mg/dL (8.5-10.1); Creatinine, Blood 3.16 mg/dL (0.60-1.20); Potassium, Blood 5.8 mmol/L (3.5-5.5)
--- NOTE | 2022-09-20 18:15 | NUR ---
PT IS A/OX3, PLEASANT AND COOPERATIVE. SLOW TO RESPOND AT TIMES. THE PT HAS BEEN BEDREST TODAY. PT REPOSITIONED T/O THE DAY THE PT HAS HAD COUPIOUS AMOUNTS OF LIGHT ORANGE COLORED OUTPUT FROM HIS ILEOSTOMY TODAY. THE PT EMPTIES THIS HIMSELF. PT WAS MEDICATED FOR ABD PAIN T/O THE DAY. THE PT WAS MEDIXCATED FOR NAUSEA THIS AM. CALL LIGHT IN REACH. WILL CONTINUE TO MONITOR AND ASSESS FOR CHANGES
[2022-09-20 19:15] LABS: Bun/Creatinine Ratio 13.2 (12.0-20.0); Calcium, Blood 10.2 mg/dL (8.5-10.1); Creatinine, Blood 2.96 mg/dL (0.60-1.20); Potassium, Blood 5.5 mmol/L (3.5-5.5)
--- NOTE | 2022-09-21 05:56 | NUR ---
SHIFT SUMMARY PT LAYING IN BED DURING BEDSIDE ROUNDS, PT REPORTS PAIN TOLERABLE D/T PAIN MEDICATION RECENTLY- PT ON TELE, IV INFUSING WITHOUT PROBLEMS- ILESTOMY CONTINUES TO DRAIN LARGE AMOUNTS OF NOVA LIQUID STOOL- PT HAS SUPPLIES AT BEDSIDE AND MANAGES OWN ILESTOMY - BANDAGE CHANGED TO ABDOMEN WOUND- REMOVED PACKING- NO S/S INFECTION/REDNESS- PACKED WITH STERILE WET GAUZE, COVERED WITH NON ADHERENT PAD AND TEGADERM- PT TOLERATED WELL - PT REQUESTED PAIN MEDICATION - MEDICATED WITH OXYCODONE AND TYLENOL- FLOATED BILAT HEELS AND ASSISTED WITH REPOSITIONING CALL LIGHT WITHIN REACH, BED LOW POSITION,
[2022-09-21 06:29] LABS: Hematocrit 28.1 % (37.0-53.0); Hemoglobin 8.7 g/dL (13.5-17.5); Mean Corpuscular HGB 27.9 pg (26.0-34.0); Mean Corpuscular Volume 90 fL (80-100); Mean Platelet Volume 9.8 fL (9.1-12.4); Platelet Count 600 K/mm3 (150-400); RDW Coefficient Variation 18.4 % (11.7-14.2); RDW Standard Deviation 59.9 fL (35.1-46.3); Red Blood Cell Count 3.12 M/mm3 (4.30-5.90); White Blood Cell Count 16.95 K/mm3 (4.00-11.30)
[2022-09-21 07:03] LABS: Albumin/Globulin Ratio 0.5 (0.8-1.8); Bilirubin, Total 0.6 mg/dL (0.1-1.0); Bun/Creatinine Ratio 14.4 (12.0-20.0); Calcium, Blood 9.5 mg/dL (8.5-10.1); Creatinine, Blood 2.5 mg/dL (0.60-1.20); Globulin, Blood 4.4 g/dL (2.2-4.0); Potassium, Blood 4.6 mmol/L (3.5-5.5); Total Protein, Blood 6.4 g/dL (6.4-8.2)
[2022-09-21 07:35] LABS: BASOPHILS PERCENT MAN 0 % (0-2); EOSINOPHILS PERCENT MAN 0 % (0-6); LYMPHOCYTES % ATYPICAL MANUAL 1 % (0-0); LYMPHOCYTES PERCENT MAN 35 % (21-46); MONOCYTES ABSOLUTE MAN 1.86 K/mm3 (0.16-1.47); MONOCYTES PERCENT MAN 11 % (4-13); NEUTROPHILS ABSOLUTE MAN 8.98 K/mm3 (1.96-9.15); SEG NEUTROPHILS PERCENT MAN 53 % (41-73); TOTAL CELLS COUNTED 100
[2022-09-21 07:50] LABS: IMMATURE RETIC FRACTION 26.2 % (2.3-16.0); RETIC HGB EQUIVALENT 31.7 pg (28.20-36.60); RETICULOCYTE ABSOLUTE 0.1106 M/mm3 (0.0200-0.1100); RETICULOCYTE COUNT PERCENT 3.58 % (0.50-2.50)
[2022-09-21 08:12] LABS: Percent Saturation 16.9 % (20.0-50.0)
--- NOTE | 2022-09-21 17:03 | NUR ---
PT IS A/OX3, PLEASANT AND COOPERATIVE. PT IS BEDREST AT THIS TIME. PT REPOSITIONED T/O THE DAY. PER PT HIS ILEOSTOMY OUTPUT HAS SLOWED DOWN AND IS A A LITTLE THICKER TODAY COMPARED TO YESTERDAY. PT WAS MEDICATED FOR PAIN T/O THE DAY. PRT DENIED NAUSEA TODAY. CALL LIGHT IN REACH, WILL CONTINUE TO MONITOR AND ASSESS FOR CHANGES.
--- NOTE | 2022-09-22 04:45 | NUR ---
JINNY WAS AWAKE MOST OF THE NIGHT. HE IS PLEASANT AND COOPERATIVE WITH CARE, AND MAKES HIS NEEDS KNOWN. HE WAS VERY CONCERNED ABOUT CONTINUINE TO EAT THROUGH THE NIGHT SO THAT HE COULD KEEP UP WITH THE MULTIPLE SMALL MEAL REGIMEN THAT IS PART OF HIS PLAN. HE IS VERY PRIVATE, AND INSISTS ON PERFORMING HIS OWN CARE ON HIS ILEOSTOMY FOR WHICH HE TOOK METICULOUS CARE. PAIN MEDICATION GIVEN ONCE OVERNIGHT FOR ABDOMINAL PAIN IN THE EVENING
[2022-09-22 05:56] LABS: BASOPHILS ABSOLUTE AUTO 0.06 K/mm3 (0.00-0.23); BASOPHILS PERCENT AUTO 0 % (0-2); EOSINOPHILS ABSOLUTE AUTO 0.15 K/mm3 (0.00-0.68); EOSINOPHILS PERCENT AUTO 1 % (0-6); Hematocrit 24.5 % (37.0-53.0); Hemoglobin 7.8 g/dL (13.5-17.5); IMMATURE GRAN ABSOLUTE AUTO 0.11 K/mm3 (0.00-0.10); IMMATURE GRAN PERCENT AUTO 1 % (0-1); LYMPHOCYTES ABSOLUTE AUTO 6.15 K/mm3 (0.84-5.20); LYMPHOCYTES PERCENT AUTO 38 % (21-46); MONOCYTES ABSOLUTE AUTO 2.78 K/mm3 (0.16-1.47); MONOCYTES PERCENT AUTO 17 % (4-13); Mean Corpuscular HGB 28.6 pg (26.0-34.0); Mean Corpuscular HGB Conc 31.8 g/dL (31.5-36.5); Mean Corpuscular Volume 90 fL (80-100); Mean Platelet Volume 9.6 fL (9.1-12.4); NEUTROPHILS ABSOLUTE AUTO 7.11 K/mm3 (1.96-9.15); NEUTROPHILS PERCENT AUTO 43 % (41-73); NRBC ABSOLUTE 0.02 K/mm3 (0.00-0.02); NRBC Auto 0.1 /100 WBC (0.0-0.2); Platelet Count 564 K/mm3 (150-400); RDW Coefficient Variation 17.8 % (11.7-14.2); RDW Standard Deviation 57.8 fL (35.1-46.3); Red Blood Cell Count 2.73 M/mm3 (4.30-5.90); White Blood Cell Count 16.36 K/mm3 (4.00-11.30)
[2022-09-22 06:15] LABS: Bun/Creatinine Ratio 15.1 (12.0-20.0); Calcium, Blood 9.1 mg/dL (8.5-10.1); Creatinine, Blood 1.79 mg/dL (0.60-1.20); Potassium, Blood 4.5 mmol/L (3.5-5.5)
--- NOTE | 2022-09-22 17:11 | NUR ---
SHIFT SUMMARY: PT A&O X3. PT HAS BEEN PLEASANT AND COOPERATIVE WITH CARE. PT HAD A COUPLE VISITORS THIS MORNING THAT APPEARED DISRESPECTFUL AND RUDE TO PT. PT SLIGHTLY AGITATED WHEN THEY LEFT. PT IV IN RAC INFILTRATED THIS AFTERNOON. HOME STAGER EVITA PLACED NEW IV IN LEFT WRIST. PT HAS NS RUNNING @150/HR. PLAN FOR PT TO D/C BACK TO [facility] TOMORROW. PT ABLE TO EMPTY OSTOMY W/O COMPLICATIONS. NO C/O PAIN OR N/V. CALL LIGHT IN REACH. BED IN LOWEST POSITION. WILL CONTINUE TO MONITOR.
[2022-09-23 05:58] LABS: BASOPHILS ABSOLUTE AUTO 0.07 K/mm3 (0.00-0.23); BASOPHILS PERCENT AUTO 0 % (0-2); EOSINOPHILS ABSOLUTE AUTO 0.22 K/mm3 (0.00-0.68); EOSINOPHILS PERCENT AUTO 1 % (0-6); Hematocrit 24.9 % (37.0-53.0); Hemoglobin 7.6 g/dL (13.5-17.5); IMMATURE GRAN ABSOLUTE AUTO 0.11 K/mm3 (0.00-0.10); IMMATURE GRAN PERCENT AUTO 1 % (0-1); LYMPHOCYTES ABSOLUTE AUTO 5.55 K/mm3 (0.84-5.20); LYMPHOCYTES PERCENT AUTO 36 % (21-46); MONOCYTES ABSOLUTE AUTO 2.47 K/mm3 (0.16-1.47); MONOCYTES PERCENT AUTO 16 % (4-13); Mean Corpuscular HGB 28.5 pg (26.0-34.0); Mean Corpuscular HGB Conc 30.5 g/dL (31.5-36.5); Mean Corpuscular Volume 93 fL (80-100); Mean Platelet Volume 8.8 fL (9.1-12.4); NEUTROPHILS PERCENT AUTO 46 % (41-73); Platelet Count 541 K/mm3 (150-400); RDW Coefficient Variation 18.1 % (11.7-14.2); RDW Standard Deviation 61.4 fL (35.1-46.3); Red Blood Cell Count 2.67 M/mm3 (4.30-5.90); White Blood Cell Count 15.62 K/mm3 (4.00-11.30)
[2022-09-23 06:30] LABS: Bun/Creatinine Ratio 14.1 (12.0-20.0); Calcium, Blood 8.9 mg/dL (8.5-10.1); Creatinine, Blood 1.42 mg/dL (0.60-1.20); Potassium, Blood 4.5 mmol/L (3.5-5.5)
--- NOTE | 2022-09-23 07:16 | NUR ---
patient slept well through the night, oriented, refused hep. managed illiostomy and urnal at bedside. called to make needs know. productive cough and dim lungs. no other issues to report.
[2022-09-23 10:22] LABS: SARS-Cov-2 (COVID-19) PCR, MMC NEGATIVE (NEGATIVE)
--- NOTE | 2022-09-23 16:44 | NUR ---
SHIFT SUMMARY PT AOX4, COOPERATIVE YET AGITATED AT TIMES DURING THE SHIFT. HE IS ON BEDREST, USING THE URINAL AND EMPTYING HIS OWN BAG. THE PLAN WAS FOR HIM TO GO HOME TO [facility] TODAY BUT AFTER A ABD CT SCAN, NEW ONSET OF ASCITES WAS FOUND. THE PROVIDER WAS NOTIFIED AND CAME TO SPEAK WITH THE PT. THE PT EXPRESSED A LACK OF OUTPUT THIS SHIFT. THE PROVIDER CALLED DR. COHEN, SURGERY, AND HE REVIEWED THE CT REPORT AND DETERMINE NO SURGICAL INTERVENTION WAS NEEDED AT THIS TIME. HE HAS FLUIDS RUNNING AT 150/HR. HE HAS C/O PAIN T/O SHIFT AND WAS MEDICATED PER THE EMAR. HE ALSO C/O NAUSEA AND WAS MEDICATED PER THE EMAR. BED IS IN THE LOWEST POSITION, CALL LIGHT IS WITHIN REACH. WILL REPORT TO ONCOMING NURSE.
--- NOTE | 2022-09-23 22:46 | NUR ---
PATIENT REQUESTED A COT FOR HIS GIRLFRIEND AND DOG TO SLEEP ON. CHARGE DISCUSSED THIS WITH PATIENT AND INFORMED THEM VISITING HOURS WERE OVER AND SHE WOULD NEED TO LEAVE. AN HOUR LATER, PT'S GIRLFRIEND AND DOG STILL HERE, STATING SHE IS WAITING FOR A RIDE. IT IS NOW 30 MINUTES LATER AND ASKED IF SHE NEEDED US TO CALL HER A CAB; SHE STATED SHE IS GOING TO CALL FOR ONE. PT UPSET STATING HE WILL NOT HAVE SURGERY OR ALLOW US TO DO ANOTHER PROCEDURE ON HIM IF HIS FAMILY CANNOT BE OUTSIDE THE OR WAITING FOR HIM. LET HIM KNOW THERE IS NO PLAN FOR SURGERY AT THIS TIME AND IF THERE WAS, IT WOULD BE IN THE MORNING DURING VISITING HOURS. HE STATED AGAIN HE WOULD NOT HAVE SURGERY IF SHE COULD NOT STAY AND THAT IT WAS OUR FAULT FOR LETTING HIM SUFFER. AGAIN, REMINDED THEM OF VISITING HOURS. HIS GIRLFRIEND IS CALLING A CAB FOR A RIDE HOME.
[2022-09-24 05:00] LABS: BASOPHILS ABSOLUTE AUTO 0.09 K/mm3 (0.00-0.23); BASOPHILS PERCENT AUTO 0 % (0-2); EOSINOPHILS PERCENT AUTO 1 % (0-6); Hematocrit 26.6 % (37.0-53.0); Hemoglobin 8.5 g/dL (13.5-17.5); IMMATURE GRAN ABSOLUTE AUTO 0.15 K/mm3 (0.00-0.10); IMMATURE GRAN PERCENT AUTO 1 % (0-1); LYMPHOCYTES ABSOLUTE AUTO 7.47 K/mm3 (0.84-5.20); LYMPHOCYTES PERCENT AUTO 29 % (21-46); MONOCYTES ABSOLUTE AUTO 2.87 K/mm3 (0.16-1.47); MONOCYTES PERCENT AUTO 11 % (4-13); Mean Corpuscular HGB 28.9 pg (26.0-34.0); Mean Corpuscular Volume 91 fL (80-100); NEUTROPHILS ABSOLUTE AUTO 14.61 K/mm3 (1.96-9.15); NEUTROPHILS PERCENT AUTO 58 % (41-73); Platelet Count 619 K/mm3 (150-400); RDW Coefficient Variation 18.4 % (11.7-14.2); RDW Standard Deviation 60.8 fL (35.1-46.3); Red Blood Cell Count 2.94 M/mm3 (4.30-5.90); White Blood Cell Count 25.39 K/mm3 (4.00-11.30)
[2022-09-24 05:23] LABS: Albumin, Blood 1.7 g/dL (3.4-5.0); Albumin/Globulin Ratio 0.4 (0.8-1.8); Bilirubin, Total 0.4 mg/dL (0.1-1.0); Bun/Creatinine Ratio 11.1 (12.0-20.0); Creatinine, Blood 1.35 mg/dL (0.60-1.20); Globulin, Blood 4.1 g/dL (2.2-4.0); Potassium, Blood 4.3 mmol/L (3.5-5.5); Total Protein, Blood 5.8 g/dL (6.4-8.2)
--- NOTE | 2022-09-24 07:37 | NUR ---
INVESTIGATION DIVISION CAPTAIN SUMMARY: A&Ox4. CALLS APPROPRIATELY AND IS ABLE TO COMMUNICATE NEEDS EFFECTIVELY. ORIENTED TO ABILITIES. LACKS JUDGMENT. QUITE UPSET LAST NIGHT R/T HIS GIRLFRIEND AND DOG NOT BEING ALLOWED TO STAY THE NIGHT DUE TO VISITOR GUIDELINES; SHE WAS ASKED THREE TIMES TO LEAVE, STATING SHE HAD CALLED FOR A RIDE BUT WAS WAITING. OFFERED TO CALL A CAB FOR HER, BUT THIS UPSET JINNY STATING HE WAS NOT GOING TO ALLOW ANY KIND OF PROCEDURE OR SURGERY TO BE DONE IF HIS GIRLFRIEND COULD NOT STAY WITH HIM. STATED THEY ARE HIS FAMILY AND THEY SHOULD BE ABLE TO STAY. REENFORCED VISITOR GUIDELINES AND APOLOGIZED FOR THE INCONVIENCE. SHE EVENTUALLY LEFT AFTER BEING TOLD SECURITY WOULD BE ABLE TO HELP HER REMOVE HER THINGS AND HER DOG IF SHE NEEDED ASSISTANCE. 5MG OXYCODONE ADMINISTERED x1 FOR ABD PAIN. LABS DRAWN THSI AM. NO ACUTE CONCERNS. REPORT TO ONCOMING RN.
--- NOTE | 2022-09-24 13:47 | NUR ---
WOUND NOTE: ABD WOUND CHANGED THIS SHIFT.
--- NOTE | 2022-09-24 18:00 | NUR ---
SHIFT SUMMARY NO ACUTE CHANGES THIS SHIFT. PT REMAINS AOX4 AND MAKES HIS NEEDS KNOWN. NO C/O OF SEVERE ABD PAIN THIS SHIFT, PT IS HAVING CONSISTENT OUTPUT. HE RECIEVED A SHOWER TODAY. HE HAS BEEN EATING WELL, TOO. PLAN IS FOR HIM TO POTENTIALLY DISCHARGE BACK TO [facility] TOMORROW. THE SURGEON THAT PERFORMED HIS PROCEDURE CAME AND CONSULTED PT TODAY. WILL REPORT TO ONCOMING NURSE.
--- NOTE | 2022-09-25 04:20 | NUR ---
METAL CLEANER SUMMARY NO ACUTE EVENTS THROUGHOUT THE NIGHT. A&OX4. PATIENT EFFECTIVELY COMMUNICATES NEEDS. RR EVEN AND UNLABORED ON RA. VSS. IMODIUM HELD THIS SHIFT PER ORDERS. ILEOSTOMY MAINTAINING GOOD OUTPUT. PATIENT APPROPRIATELY CARES FOR ILEOSTOMY INDEPENDENTLY. MEDICATIONS FOR SLEEP AND PAIN PRN ADMINISTERED PER EMAR. MECHANICAL DIET ORDERED, HOWEVER, PATIENT ORDERED HIMSELF PIZZA AND ATE SEVERAL SLICES. MIDLINE INCISION DRESSING C/D/I. BED LOW AND LOCKED. CALL LIGHT WITHIN REACH. THIS RN WILL CONINUE TO MONITOR.
[2022-09-25 04:57] LABS: BASOPHILS ABSOLUTE AUTO 0.09 K/mm3 (0.00-0.23); BASOPHILS PERCENT AUTO 1 % (0-2); EOSINOPHILS ABSOLUTE AUTO 0.49 K/mm3 (0.00-0.68); EOSINOPHILS PERCENT AUTO 3 % (0-6); Hematocrit 24.7 % (37.0-53.0); Hemoglobin 7.8 g/dL (13.5-17.5); IMMATURE GRAN ABSOLUTE AUTO 0.11 K/mm3 (0.00-0.10); IMMATURE GRAN PERCENT AUTO 1 % (0-1); LYMPHOCYTES ABSOLUTE AUTO 6.07 K/mm3 (0.84-5.20); LYMPHOCYTES PERCENT AUTO 34 % (21-46); MONOCYTES ABSOLUTE AUTO 2.32 K/mm3 (0.16-1.47); MONOCYTES PERCENT AUTO 13 % (4-13); Mean Corpuscular HGB 28.6 pg (26.0-34.0); Mean Corpuscular HGB Conc 31.6 g/dL (31.5-36.5); Mean Corpuscular Volume 91 fL (80-100); Mean Platelet Volume 9.2 fL (9.1-12.4); NEUTROPHILS ABSOLUTE AUTO 8.97 K/mm3 (1.96-9.15); NEUTROPHILS PERCENT AUTO 50 % (41-73); Platelet Count 612 K/mm3 (150-400); RDW Coefficient Variation 18.2 % (11.7-14.2); RDW Standard Deviation 59.6 fL (35.1-46.3); Red Blood Cell Count 2.73 M/mm3 (4.30-5.90); White Blood Cell Count 18.05 K/mm3 (4.00-11.30)
[2022-09-25 05:19] LABS: Bun/Creatinine Ratio 12.5 (12.0-20.0); Creatinine, Blood 1.36 mg/dL (0.60-1.20)
[2022-09-25 11:29] LABS: SARS-Cov-2 (COVID-19) PCR, MMC Negative (NEGATIVE)
--- NOTE | 2022-09-25 13:53 | NUR ---
DISCHARGE NOTE PT DISCHARGED BACK TO [facility]. IV REMOVED SUCCESSFULLY. REPORT GIVEN TO PETRA NURSE, AT [facility].
== END 2022-09-25 13:18 | disposition home or self-care (01) | DRG 683 ==
LOC: ER 18:13 → MEDS 09-20 00:15
PROVIDERS: Family Medicine; Student in an Organized Health Care Education/Training Program; ADMIT Student in an Organized Health Care Education/Training Program
DX: N17.9 Acute kidney failure, unspecified (principal); E87.1 Hypo-osmolality and hyponatremia; K56.609 Unspecified intestinal obstruction, unspecified as to partial versus complete obstruction; K56.7 Ileus, unspecified; R18.8 Other ascites; E87.20 Acidosis, unspecified; N18.4 Chronic kidney disease, stage 4 (severe); D63.1 Anemia in chronic kidney disease; K21.9 Gastro-esophageal reflux disease without esophagitis; E87.5 Hyperkalemia; G47.00 Insomnia, unspecified; D72.829 Elevated white blood cell count, unspecified; M79.89 Other specified soft tissue disorders; B19.20 Unspecified viral hepatitis C without hepatic coma; I12.9 Hypertensive chronic kidney disease with stage 1 through stage 4 chronic kidney disease, or unspecified chronic kidney disease; E86.1 Hypovolemia; E86.0 Dehydration; R59.1 Generalized enlarged lymph nodes; G62.9 Polyneuropathy, unspecified; F15.11 Other stimulant abuse, in remission; F14.11 Cocaine abuse, in remission; F17.210 Nicotine dependence, cigarettes, uncomplicated; Z20.822 Contact with and (suspected) exposure to COVID-19; Z93.2 Ileostomy status; Z87.19 Personal history of other diseases of the digestive system; Z90.49 Acquired absence of other specified parts of digestive tract; Z79.899 Other long term (current) drug therapy; Z79.891 Long term (current) use of opiate analgesic; Z90.81 Acquired absence of spleen
CPT/HCPCS: 36415; 74177; 76770; 80047; 80048; 80053; 81001; 82570; 82607; 82728; 82746; 83540; 83550; 83735; 84300; 85014; 85025; 85045; 87086; 87507; 93005; 93010; 94644; 94664; 96361; 96372; 96374; 96375; 96376; 97110; 97161; 97530; 99285-25; A9270; G0378; J1644; J1815; J2405; J7030; J7120; J7799; Q9967; U0004

== ENCOUNTER → 2022-09-19 | Outpatient (CLI) | payer OTHER ==
[~2022-09-19] MED LIST changes: +MELA3 PO; +Nicoderm Cq1 EACH TOP; +SIME80CH PO
[2022-09-19 16:44] LABS: Hematocrit 36.6 % (37.0-53.0); Hemoglobin 11.7 g/dL (13.5-17.5); Mean Corpuscular HGB 28.3 pg (26.0-34.0); Mean Corpuscular Volume 88 fL (80-100); Mean Platelet Volume 9.5 fL (9.1-12.4); Platelet Count 761 K/mm3 (150-400); RDW Coefficient Variation 19.5 % (11.7-14.2); RDW Standard Deviation 61.4 fL (35.1-46.3); Red Blood Cell Count 4.14 M/mm3 (4.30-5.90); White Blood Cell Count 37.07 K/mm3 (4.00-11.30)
[2022-09-19 17:13] LABS: Albumin, Blood 2.5 g/dL (3.4-5.0); Albumin/Globulin Ratio 0.5 (0.8-1.8); Bilirubin, Total 0.6 mg/dL (0.1-1.0); Bun/Creatinine Ratio 11.1 (12.0-20.0); Calcium, Blood 10.5 mg/dL (8.5-10.1); Creatinine, Blood 3.06 mg/dL (0.60-1.20); Globulin, Blood 5.2 g/dL (2.2-4.0); Total Protein, Blood 7.7 g/dL (6.4-8.2)
== END | disposition home or self-care (01) ==
LOC: LAB RH 15:00 → EDSTATUS 15:23
PROVIDERS: Internal Medicine
DX: A09 Infectious gastroenteritis and colitis, unspecified (principal)
CPT/HCPCS: 80053; 85027

== ENCOUNTER 2022-10-04 02:25 | Inpatient (IN) | payer OTHER ==
[~2022-10-04] VITALS: Ht 182.9 cm; Wt 68.0 kg
[2022-10-04 03:33] LABS: Source, Urine Clean Catch
[2022-10-04 03:36] LABS: BASOPHILS ABSOLUTE AUTO 0.09 K/mm3 (0.00-0.23); BASOPHILS PERCENT AUTO 1 % (0-2); EOSINOPHILS ABSOLUTE AUTO 0.06 K/mm3 (0.00-0.68); EOSINOPHILS PERCENT AUTO 0 % (0-6); Hematocrit 33.5 % (37.0-53.0); Hemoglobin 11.1 g/dL (13.5-17.5); IMMATURE GRAN ABSOLUTE AUTO 0.05 K/mm3 (0.00-0.10); IMMATURE GRAN PERCENT AUTO 0 % (0-1); LYMPHOCYTES ABSOLUTE AUTO 4.29 K/mm3 (0.84-5.20); LYMPHOCYTES PERCENT AUTO 31 % (21-46); MONOCYTES ABSOLUTE AUTO 1.96 K/mm3 (0.16-1.47); MONOCYTES PERCENT AUTO 14 % (4-13); Mean Corpuscular HGB 28.7 pg (26.0-34.0); Mean Corpuscular HGB Conc 33.1 g/dL (31.5-36.5); Mean Corpuscular Volume 87 fL (80-100); Mean Platelet Volume 8.8 fL (9.1-12.4); NEUTROPHILS PERCENT AUTO 53 % (41-73); Platelet Count 892 K/mm3 (150-400); RDW Coefficient Variation 16.6 % (11.7-14.2); RDW Standard Deviation 52.6 fL (35.1-46.3); Red Blood Cell Count 3.87 M/mm3 (4.30-5.90); White Blood Cell Count 13.65 K/mm3 (4.00-11.30)
[2022-10-04 03:55] LABS: Albumin, Blood 2.2 g/dL (3.4-5.0); Albumin/Globulin Ratio 0.5 (0.8-1.8); Bilirubin, Total 0.4 mg/dL (0.1-1.0); Creatinine, Blood 1.48 mg/dL (0.60-1.20); Globulin, Blood 4.8 g/dL (2.2-4.0); Potassium, Blood 4.2 mmol/L (3.5-5.5)
[2022-10-04 03:56] LABS: Bilirubin, Urine Neg (Neg); Blood, Urine Neg (Neg); Glucose Qualitative, Urine Neg (Neg); Ketones, Urine Neg (Neg); Leukocyte Esterase, Urine Neg (Neg); Nitrite, Urine Neg (Neg); Protein, Urine Neg (Neg); Specific Gravity, Urine 1.015 (1.003-1.022); Urobilinogen, Urine NORM (Normal); pH, Urine 6.5 (5.0-8.0)
[2022-10-04 04:03] LABS: Appearance, Urine Clear (Clear); Color, Urine Yellow (P-Yellow)
[2022-10-04 07:55] VITALS: BP 110/79
--- NOTE | 2022-10-04 08:00 | NUR ---
PT ARRIVED TO ROOM 326 FROM ED VIA GURNEY AT 0645. SETTLED IN TO BED AND REMINDED HE IS CURRENTLY NPO MUCH TO HIS DISGRUNTLEMENT. DENIED PAIN OR NAUSEA WITH ASSESSMENT. NOTHING IN ILIOSTOMY BAG AT THIS TIME.
[2022-10-04] MEDS ORDERED: MELA3 PO (14:12)
[2022-10-04 16:53] VITALS: BP 104/69
--- NOTE | 2022-10-04 18:37 | NUR ---
SHIFT SUMMARY PT PROVIDED ICE CHIPS TODAY AND HAS TOLERATED WITH NO PROBLEM. DID HAVE A LIQUID STOOL EARLY AFTERNOON AND SOUNDS OF GAS COMING FROM STOMA HEARD. SURGEON IN AND CHANGED DIET TO CLEAR LIQUIDS. PT IMPATIENT WITH DIET CHANGES AND NOT ADVANCING FAST ENOUGH. ABDOMEN FLAT AND SLIGHTLY TENDER TO PALPATION.
[2022-10-04 18:56] LABS: Adenovirus F 40/41 Not Detected (NOT DETECT); Astrovirus Not Detected (NOT DETECT); Norovirus GI/GII Detected (NOT DETECT); Rotavirus A Not Detected (NOT DETECT); Sapovirus Not Detected (NOT DETECT)
[2022-10-04 18:57] LABS: Campylobacter Sp Not Detected (NOT DETECT); Cryptosporidium Not Detected (NOT DETECT); Cyclospora Cayetanensis Not Detected (NOT DETECT); E. Coli O157 Not Detected (NOT DETECT); Entamoeba Histolytica Not Detected (NOT DETECT); Enteroaggregative E. coli-EAEC Not Detected (NOT DETECT); Enteropathogenic E. coli-EPEC Not Detected (NOT DETECT); Enterotoxigenic E. coli-ETEC Not Detected (NOT DETECT); Giardia Lamblia Not Detected (NOT DETECT); Plesiomonas Shigelloides Not Detected (NOT DETECT); Salmonella Sp Not Detected (NOT DETECT); Shiga Toxin-prod E. coli-STEC Not Detected (NOT DETECT); Shigella/Enteroin E. coli-EIEC Not Detected (NOT DETECT); Vibrio Cholerae Not Detected (NOT DETECT); Vibrio Sp Not Detected (NOT DETECT); Yersinia Enterocolitica Not Detected (NOT DETECT)
[2022-10-04 20:01] VITALS: BP 118/69
--- NOTE | 2022-10-05 05:05 | NUR ---
DESIGN TEACHER SUMMARY VSS. SCD'S APPLIED AT SHIFT COMMENCE. PT EMPTIED OSTOMY A FEW TIMES BY SELF, LIQUID RESULTS. LIGHT NOVA TO SLIGHT REDDENED COLOR. ALERT AND ORIENTED. TOLERATING CLEAR LIQUIDS. REQUESTED SOLID FOODS, WAS ENCOURAGED TO SPEAK WITH RE DIET CHANGES. HAS BEEN RESTING QUIETLY AT INTERVALS. IVF INFUSED. ISOLATION PRECAUTIONS INITIATED AND MAINTAINED -SEE LAB RESULTS FOR CAUSE. CALL LIGHT IN REACH. WILL CONTINUE TO MONITOR
[2022-10-05 05:23] VITALS: BP 111/69
[2022-10-05 05:34] LABS: BASOPHILS ABSOLUTE AUTO 0.05 K/mm3 (0.00-0.23); BASOPHILS PERCENT AUTO 1 % (0-2); EOSINOPHILS ABSOLUTE AUTO 0.21 K/mm3 (0.00-0.68); EOSINOPHILS PERCENT AUTO 3 % (0-6); Hematocrit 28.8 % (37.0-53.0); Hemoglobin 9.4 g/dL (13.5-17.5); IMMATURE GRAN ABSOLUTE AUTO 0.02 K/mm3 (0.00-0.10); IMMATURE GRAN PERCENT AUTO 0 % (0-1); LYMPHOCYTES ABSOLUTE AUTO 4.11 K/mm3 (0.84-5.20); LYMPHOCYTES PERCENT AUTO 52 % (21-46); MONOCYTES ABSOLUTE AUTO 1.47 K/mm3 (0.16-1.47); MONOCYTES PERCENT AUTO 18 % (4-13); Mean Corpuscular HGB 28.6 pg (26.0-34.0); Mean Corpuscular HGB Conc 32.6 g/dL (31.5-36.5); Mean Corpuscular Volume 88 fL (80-100); Mean Platelet Volume 8.7 fL (9.1-12.4); NEUTROPHILS ABSOLUTE AUTO 2.12 K/mm3 (1.96-9.15); NEUTROPHILS PERCENT AUTO 27 % (41-73); Platelet Count 773 K/mm3 (150-400); RDW Coefficient Variation 16.8 % (11.7-14.2); RDW Standard Deviation 54.1 fL (35.1-46.3); Red Blood Cell Count 3.29 M/mm3 (4.30-5.90); White Blood Cell Count 7.98 K/mm3 (4.00-11.30)
[2022-10-05 06:00] LABS: Albumin, Blood 1.9 g/dL (3.4-5.0); Albumin/Globulin Ratio 0.5 (0.8-1.8); Bilirubin, Total 0.4 mg/dL (0.1-1.0); Bun/Creatinine Ratio 21.5 (12.0-20.0); Calcium, Blood 9.4 mg/dL (8.5-10.1); Creatinine, Blood 1.44 mg/dL (0.60-1.20); Globulin, Blood 4.1 g/dL (2.2-4.0); Potassium, Blood 3.9 mmol/L (3.5-5.5)
[2022-10-05 08:29] VITALS: BP 94/71
[2022-10-05] MEDS ORDERED: ONDA4ODT MM (12:44)
[2022-10-05 17:17] VITALS: BP 119/79
--- NOTE | 2022-10-05 18:38 | NUR ---
SHIFT SUMARY PT IN BED THROUGH THE DAY. HAS HAD OUTPUT IN OSTOMY. PT MANAGING MOSTLY ON HIS OWN. DENIES PAIN OR NAUSEA THROUGH THE DAY. HAPPY TO BE EATING REGULAR FOOD AGAIN.
[2022-10-05 19:37] VITALS: BP 127/85
[2022-10-06 02:26] VITALS: BP 118/78
--- NOTE | 2022-10-06 04:45 | NUR ---
SHIFT SUMMERY, PT RESTING IN BED, PT HAS A SNACK BEFORE BED TIME. PT STILL HAVING FREQUENT STOOLS PUDDING LIKE THICKNESS. PT ALERT AND ORIENTED. CALL LIGHT IN REACH
[2022-10-06 07:40] VITALS: BP 107/84
[2022-10-06 09:36] LABS: Anion Gap 2 mmol/L (6-16); Blood Urea Nitrogen 16 mg/dL (8-24); Bun/Creatinine Ratio 12.1 (12.0-20.0); CO2, Blood 28 mmol/L (21-32); Calcium, Blood 9.4 mg/dL (8.5-10.1); Chloride, Blood 101 mmol/L (98-108); Creatinine, Blood 1.32 mg/dL (0.60-1.20); Glomerular Filtration Rate 61 (60-); Glucose, Blood 90 mg/dL (70-99); Phosphorus, Blood 1.6 mg/dL (2.5-4.9); Sodium, Blood 131 mmol/L (136-145)
[2022-10-06 12:52] LABS: Influenza A, PCR NEGATIVE (NEGATIVE); Influenza B, PCR NEGATIVE (NEGATIVE); Resp Syncytial Virus, PCR NEGATIVE (NEGATIVE); SARS-Cov-2 (COVID-19) PCR, MMC NEGATIVE (NEGATIVE)
--- NOTE | 2022-10-06 15:56 | NUR ---
DISCHARGED PT DISCHARGED TO FACILITY. TRANSPORTED BY WHEEL CHAIR. PT ALERT AND ORIENTED X4. INDEPENDENT IN THE ROOM. DISCUSSED DISCHARGE INSTRUCTIONS. PT DID NOT HAVE ANY QUESTIONS AT THIS TIME
== END 2022-10-06 15:25 | DRG 389 ==
LOC: ER 02:25 → SURS 05:22 → MEDS 05:22 → ENPENDDIS 10-05 11:54 → MEDS 10-06 15:25
PROVIDERS: Family Medicine; Internal Medicine; Student in an Organized Health Care Education/Training Program; ADMIT Internal Medicine
DX: K56.609 Unspecified intestinal obstruction, unspecified as to partial versus complete obstruction (principal); A08.0 Rotaviral enteritis; E87.1 Hypo-osmolality and hyponatremia; N17.9 Acute kidney failure, unspecified; N18.4 Chronic kidney disease, stage 4 (severe); D63.1 Anemia in chronic kidney disease; M54.9 Dorsalgia, unspecified; G89.29 Other chronic pain; R74.8 Abnormal levels of other serum enzymes; K21.9 Gastro-esophageal reflux disease without esophagitis; E87.8 Other disorders of electrolyte and fluid balance, not elsewhere classified; G47.00 Insomnia, unspecified; D72.829 Elevated white blood cell count, unspecified; G62.9 Polyneuropathy, unspecified; Z20.822 Contact with and (suspected) exposure to COVID-19; B19.20 Unspecified viral hepatitis C without hepatic coma; M19.90 Unspecified osteoarthritis, unspecified site; I12.9 Hypertensive chronic kidney disease with stage 1 through stage 4 chronic kidney disease, or unspecified chronic kidney disease; F17.210 Nicotine dependence, cigarettes, uncomplicated; E86.0 Dehydration; Z87.19 Personal history of other diseases of the digestive system; Z90.49 Acquired absence of other specified parts of digestive tract; Z98.890 Other specified postprocedural states; Z79.899 Other long term (current) drug therapy; Z79.891 Long term (current) use of opiate analgesic; Z90.81 Acquired absence of spleen
CPT/HCPCS: 0241U; 36415; 74177; 80053; 80069; 81003; 83605; 83690; 85025; 87507; 96374; 96375; 99285-25; A9270; J1885; J2405; J7030; Q9967

== ENCOUNTER 2022-10-26 22:54 | Inpatient (IN) | payer OTHER ==
[~2022-10-26] VITALS: Ht 182.9 cm; Wt 65.0 kg
[~2022-10-26 22:54] MED LIST changes: +MELA3 PO
[2022-10-27] VITALS (33 sets, daily range): BP systolic 71–123; BP diastolic 43–100
[2022-10-27 00:34] LABS: BASOPHILS ABSOLUTE AUTO 0.17 K/mm3 (0.00-0.23); BASOPHILS PERCENT AUTO 1 % (0-2); EOSINOPHILS ABSOLUTE AUTO 0.03 K/mm3 (0.00-0.68); EOSINOPHILS PERCENT AUTO 0 % (0-6); Hematocrit 40.7 % (37.0-53.0); Hemoglobin 12.9 g/dL (13.5-17.5); IMMATURE GRAN ABSOLUTE AUTO 0.48 K/mm3 (0.00-0.10); IMMATURE GRAN PERCENT AUTO 1 % (0-1); LYMPHOCYTES ABSOLUTE AUTO 2.03 K/mm3 (0.84-5.20); LYMPHOCYTES PERCENT AUTO 6 % (21-46); MONOCYTES ABSOLUTE AUTO 3.27 K/mm3 (0.16-1.47); MONOCYTES PERCENT AUTO 9 % (4-13); Mean Corpuscular HGB 28.4 pg (26.0-34.0); Mean Corpuscular HGB Conc 31.7 g/dL (31.5-36.5); Mean Corpuscular Volume 90 fL (80-100); Mean Platelet Volume 8.6 fL (9.1-12.4); NEUTROPHILS ABSOLUTE AUTO 31.04 K/mm3 (1.96-9.15); NEUTROPHILS PERCENT AUTO 84 % (41-73); Platelet Count 752 K/mm3 (150-400); RDW Coefficient Variation 15.9 % (11.7-14.2); RDW Standard Deviation 51.9 fL (35.1-46.3); Red Blood Cell Count 4.55 M/mm3 (4.30-5.90); White Blood Cell Count 37.02 K/mm3 (4.00-11.30)
[2022-10-27 01:07] LABS: Albumin, Blood 2.3 g/dL (3.4-5.0); Albumin/Globulin Ratio 0.4 (0.8-1.8); Bilirubin, Total 0.3 mg/dL (0.1-1.0); Bun/Creatinine Ratio 16.4 (12.0-20.0); Calcium, Blood 10.5 mg/dL (8.5-10.1); Creatinine, Blood 2.93 mg/dL (0.60-1.20); Globulin, Blood 5.6 g/dL (2.2-4.0); Potassium, Blood 5.2 mmol/L (3.5-5.5); Total Protein, Blood 7.9 g/dL (6.4-8.2)
[2022-10-27 02:20] LABS: International Normalized Ratio 1.14; Prothrombin Time Results 11.9 Sec (9.7-11.5)
[2022-10-27 05:36] LABS: Hematocrit 32.6 % (37.0-53.0); Hemoglobin 10.8 g/dL (13.5-17.5); Mean Corpuscular HGB 28.1 pg (26.0-34.0); Mean Corpuscular HGB Conc 33.1 g/dL (31.5-36.5); Mean Platelet Volume 8.7 fL (9.1-12.4); Platelet Count 890 K/mm3 (150-400); RDW Coefficient Variation 15.4 % (11.7-14.2); RDW Standard Deviation 46.6 fL (35.1-46.3); Red Blood Cell Count 3.85 M/mm3 (4.30-5.90)
[2022-10-27 05:37] LABS: Mean Corpuscular Volume 85 fL (80-100)
[2022-10-27 06:17] LABS: Albumin/Globulin Ratio 0.5 (0.8-1.8); Bilirubin, Total 0.4 mg/dL (0.1-1.0); Bun/Creatinine Ratio 17.6 (12.0-20.0); Calcium, Blood 9.1 mg/dL (8.5-10.1); Creatinine, Blood 3.13 mg/dL (0.60-1.20); Globulin, Blood 4.4 g/dL (2.2-4.0); Potassium, Blood 4.8 mmol/L (3.5-5.5); Total Protein, Blood 6.4 g/dL (6.4-8.2)
[2022-10-27 06:34] LABS: White Blood Cell Count 50.73 K/mm3 (4.00-11.30)
[2022-10-27 06:41] LABS: BAND PERCENT MAN 10 % (0-8); BASOPHILS PERCENT MAN 0 % (0-2); EOSINOPHILS PERCENT MAN 0 % (0-6); LYMPHOCYTES ABSOLUTE MAN 2.53 K/mm3 (0.84-5.20); LYMPHOCYTES PERCENT MAN 5 % (21-46); MONOCYTES ABSOLUTE MAN 2.53 K/mm3 (0.16-1.47); MONOCYTES PERCENT MAN 5 % (4-13); NEUTROPHILS ABSOLUTE MAN 45.65 K/mm3 (1.96-9.15); SEG NEUTROPHILS PERCENT MAN 80 % (41-73); TOTAL CELLS COUNTED 100
[2022-10-27 06:46] LABS: Adenovirus F 40/41 Not Detected (NOT DETECT); Astrovirus Not Detected (NOT DETECT); Campylobacter Sp Not Detected (NOT DETECT); Cryptosporidium Not Detected (NOT DETECT); Cyclospora Cayetanensis Not Detected (NOT DETECT); E. Coli O157 Not Detected (NOT DETECT); Entamoeba Histolytica Not Detected (NOT DETECT); Enteroaggregative E. coli-EAEC Not Detected (NOT DETECT); Enteropathogenic E. coli-EPEC Not Detected (NOT DETECT); Enterotoxigenic E. coli-ETEC Not Detected (NOT DETECT); Giardia Lamblia Not Detected (NOT DETECT); Norovirus GI/GII Not Detected (NOT DETECT); Plesiomonas Shigelloides Not Detected (NOT DETECT); Rotavirus A Not Detected (NOT DETECT); Salmonella Sp Not Detected (NOT DETECT); Sapovirus Not Detected (NOT DETECT); Shiga Toxin-prod E. coli-STEC Not Detected (NOT DETECT); Shigella/Enteroin E. coli-EIEC Not Detected (NOT DETECT); Vibrio Cholerae Not Detected (NOT DETECT); Vibrio Sp Not Detected (NOT DETECT); Yersinia Enterocolitica Not Detected (NOT DETECT)
--- NOTE | 2022-10-27 08:36 | NUR ---
DR SALAZAR/UPDATE DR SALAZAR AT BEDSIDE THIS MORNING TO DISCUSS PT CONDITION AND PLAN OF CARE. AWAITING DR KWONG TO SEE PT WELL. SHORTLY AFTER DR SALAZAR LEFT, PT CALLS NURSING STAFF IN AND REPORTS HE WANTS TO LEAVE AMA "BECAUSE NOBODY IS DOING ANYTHING HERE." THIS RN AND CLARK DRIVER PROVIDED EXTENSIVE EDUCATION ABOUT PT CONDITION AND PLAN OF CARE AGAIN. DR SALAZAR NOTIFIED, ORDERS RECIEVED TO INCREASE FREQUENCY OF MORPHINE PRN. WILL CONTINUE TO MONITOR AND MED PER EMAR.
[2022-10-27 08:54] LABS: Source, Urine Clean Catch
[2022-10-27 08:57] LABS: Appearance, Urine Clear (Clear); Blood, Urine 1+ (Neg); Color, Urine Yellow (P-Yellow); Glucose Qualitative, Urine Neg (Neg); Ketones, Urine Neg (Neg); Leukocyte Esterase, Urine 1+ (Neg); Nitrite, Urine Neg (Neg); Protein, Urine 2+ (Neg); Specific Gravity, Urine 1.025 (1.003-1.022); Urobilinogen, Urine NORM (Normal)
[2022-10-27 09:04] LABS: Bilirubin, Urine 1+ (Neg)
[2022-10-27 09:07] LABS: Bacteria Mod /hpf; Mucus Mod (0-Heavy); Squamous Epithelial Cells Few /hpf (Few)
--- NOTE | 2022-10-27 10:36 | NUR ---
Spiritual care visit. Pt. is awake in bed when I intiate my visit. Pt. displays evidence of abdominal pain and verbalizes "I don't want to here." Listen with emapthy and a calming presence and normalize the Pt. experience. Pt. verbalized welcoming the pastoral drug counselor and encouragement and specifically to allow the medical staff help him to get better. Prayed with Pt. Will remain available to Pt.
--- NOTE | 2022-10-27 16:59 | NUR ---
SHIFT SUMMARY PT CONTINUES TO REST IN BED. PT ANSWERS SOME QUESTIONS APPROPRIATELY. PT FOLLOWS MOST COMMANDS. HR 100'S, BP STABLE. PT HAS POWERGLIDE IN BAY INFUSING SODIUM BICARB AT 100MLS/HR, IV IN LEFT WRIST AND LEFT AC. PT COMPLAINS OF PAIN AND NAUSEA THROUGHOUT THE SHIFT MEDICATED PER EMAR. OSTOMY RIGHT ABDOMEN CONINUES TO PUT OUT LIQUID BROWN STOOL. PT USES URINAL. NO ACUTE CHANGES THIS SHIFT. WILL CONTINUE TO MONITOR AND GIVE REPORT TO ONCOMING RN.
[2022-10-27 18:30] LABS: Calcium, Ionized (POC) 1.58 mmol/L (1.10-1.46); Chloride (POC) 95 mmol/L (98-108); Glucose (ISTAT POC) 25 mg/dL (70-99); Hemoglobin (POC) 7.8 g/dL (13.5-17.5); Potassium (POC) 4.8 mmol/L (3.5-5.5); Sodium (POC) 134 mmol/L (135-148); Total CO2 (POC) 22 mmol/L (21-32)
--- NOTE | 2022-10-27 18:41 | NUR ---
"Spiritual Care | Code Blue Pt. is having chest compressions from the medical team. This binder coverstitch supplied logisitic support. No family are present. TOD was approx. 18:28. At the time of this charting the hospital has not heard from ELIZABETH (Mother), as none of the listed phone numbers were active or current. With the help of [facility] Nurse Agronomist tracked down friend of Pt. who was going to the Mother's home in [place] to call the hospital."
--- NOTE | 2022-10-27 18:46 | NUR ---
FANI WHITE/TIME OF DR SALAZAR NOTIFIED OF INCREASING LACTIC ACID OF 13.7. ORDERS RECIEVED TO START 3L OF NS BOLUS FLUIDS. WHEN STARTING FIRST LITER OF NS, PT NOTED TO BE INCREASINGLY RESTLESS AND MOANING OUT. PT THEN BECAME UNAROUSEABLE TO STERNAL RUB. PT NOTED TO BE BRADYING ON MONITOR, NO PULSE PALPABLE. FANI WHITE CALLED AND CPR STARTED. SOLAR SALES ADVISOR ATTEMPTED TO CONTACT MULTIPLE FAMILY MEMBERS WITHOUT SUCCESS. CPR CONTINUED. SEE FANI WHITE FLOW SHEET FOR CODE DETAILS. CPR STOPPED AND TIME OF CALLED AT [address] SALAZAR AT BEDSIDE.
[2022-10-27 19:05] LABS: Bun/Creatinine Ratio 18.5 (12.0-20.0); Creatinine, Blood 3.83 mg/dL (0.60-1.20); Potassium, Blood 4.7 mmol/L (3.5-5.5)
== END 2022-10-27 18:28 | DRG 871 ==
LOC: ER 22:54 → ICUW 10-27 02:59 → PCU 10-27 02:59 → ICUW 10-27 03:04
PROVIDERS: Internal Medicine; Student in an Organized Health Care Education/Training Program; ADMIT Internal Medicine
PROC: 3E03329 Introduction of Other Anti-infective into Peripheral Vein, Percutaneous Approach (ICD-10-PCS; principal; 2022-10-27)
PROC: 0BH18EZ Insertion of Endotracheal Airway into Trachea, Via Natural or Artificial Opening Endoscopic (ICD-10-PCS; 2022-10-27)
PROC: 5A12012 Performance of Cardiac Output, Single, Manual (ICD-10-PCS; 2022-10-27)
DX: A41.9 Sepsis, unspecified organism (principal); G92.8 Other toxic encephalopathy; R65.21 Severe sepsis with septic shock; K56.609 Unspecified intestinal obstruction, unspecified as to partial versus complete obstruction; E87.1 Hypo-osmolality and hyponatremia; N17.9 Acute kidney failure, unspecified; F11.20 Opioid dependence, uncomplicated; G89.29 Other chronic pain; T40.415A Adverse effect of fentanyl or fentanyl analogs, initial encounter; M54.9 Dorsalgia, unspecified; I12.9 Hypertensive chronic kidney disease with stage 1 through stage 4 chronic kidney disease, or unspecified chronic kidney disease; N18.30 Chronic kidney disease, stage 3 unspecified; F17.210 Nicotine dependence, cigarettes, uncomplicated; M19.90 Unspecified osteoarthritis, unspecified site; Z93.2 Ileostomy status; Z86.19 Personal history of other infectious and parasitic diseases; Z90.49 Acquired absence of other specified parts of digestive tract; Z79.899 Other long term (current) drug therapy
CPT/HCPCS: 31500; 36415; 71045; 74018; 74176; 80047; 80048; 80053; 81001; 83605; 83880; 85014; 85025; 85610; 87040; 87086; 87507; 92950; 93005; 93010; 94002; 96361; 96365; 96375; 99285-25; A9270; C1751; J0461; J0692; J0696; J1265; J2270; J2405; J3370; J7030